=== PATIENT | male | born 1955 | race Caucasian/White ===

== ENCOUNTER 2017-07-27 16:24 | Inpatient (IN) | END 2017-08-11 18:45 | disposition home or self-care (01) | DRG 674 ==

== ENCOUNTER 2017-09-13 12:55 | Observation (INO) | END 2017-09-16 17:00 | disposition home or self-care (01) ==

== ENCOUNTER 2017-09-28 22:45 | Inpatient (IN) | END 2017-10-07 20:35 | DRG 264 ==

== ENCOUNTER 2018-08-10 17:59 | Inpatient (IN) | payer OTHER, MEDICAID ==
[~2018-08-10] VITALS: Ht 172.7 cm; Wt 76.9 kg
[~2018-08-10 17:59] MED LIST: CARV25TA79 PO; CLON-379 PO; CLOP75TA27 PO; MINO2.5T16 PO; NEPH PO; NIFE90TA11 PO; NITR0.4T39 SL; PANT40TA4 PO; SEVE800T7 PO; VALS160T20 PO
[2018-08-10] MEDS ORDERED: VANCOMYCIN 1 GM (PMX) 250 ML IVPB ONE (21:30)
[2018-08-10] MEDS ORDERED: PIPER-TAZO 3.375 GM IV (PMX) 100 ML IVPB ONE (21:30)
--- NOTE | 2018-08-10 21:51 | ERD ---
ER Documentation Chief Complaint Chief Complaint L toe eschar- painful; missed HD because of pain; L leg pain HPI 63-year-old man with a history of end-stage kidney disease missed dialysis today presents with increasing pain, swelling, discharge to the left pinky toe. He does have a history of bilateral foot pressure ulcers and prior foot osteomyelitis. He had a fever today but denies URI symptoms, no cough, no chest pain or shortness of breath, no vomiting or diarrhea, no complaints of abdominal pain. Patient denies recent antibiotic use or recent travel. ROS All systems reviewed and are negative except as per history of present illness. Medications Home Meds Active Scripts Pantoprazole* (Pantoprazole*) 40 Mg Tablet.dr, 40 MG PO DAILY@06 for 30 Days, #30 TAB Prov:TOÑO RODRIGUEZ MD 09/15/17 Reported Medications Clopidogrel Bisulfate (Clopidogrel) 75 Mg Tablet, 75 MG PO DAILY, #30 TAB 09/13/17 Multivit/Ca Carb/B Cmplx/Fa* (Yeny-Odalis*) 1 Tab Tab, 1 TAB PO DAILY, TAB 09/13/17 Valsartan* (Diovan*) 160 Mg Tablet, 160 MG PO DAILY, TAB 09/13/17 Nifedipine* (Nifedipine ER*) 90 Mg Tablet.er, 90 MG PO DAILY, TAB 09/13/17 Carvedilol* (Carvedilol*) 25 Mg Tablet, 25 MG PO BID, #60 TAB 09/13/17 Minoxidil* (Lonitin*) 2.5 Mg Tab, 2.5 MG PO BID, TAB 09/13/17 Nitroglycerin* (Nitrostat*) 0.4 Mg Tab.subl, 0.4 MG SL Q5MIN PRN for CHEST PAIN, BOTTLE 09/13/17 Clonidine Hcl* (Clonidine Hcl*) 0.1 Mg Tab, 0.1 MG PO BID PRN for ELEVATED BLOOD PRESSURE, TAB 09/13/17 Sevelamer Carbonate* (Renvela*) 800 Mg Tablet, 0.8 GM PO WITH MEALS, TAB 07/27/17 Allergies Allergies: Coded Allergies: No Known Allergy (Unverified , 09/28/17) PMhx/Soc History of bilateral foot osteomyelitis and infected ulcers, hypertension, end- stage kidney disease hemodialysis dependent, anemia, diabetes mellitus History of Surgery: Yes (LEFT KNEE 2009, PERMACATH PLACEMENT JUNE 2017) Anesthesia Reaction: No Hx Neurological Disorder: No Hx Respiratory Disorders: No Hx Cardiac Disorders: Yes (PREVIOUS CHEST PAIN 08/2017) Hx Psychiatric Problems: No Hx Miscellaneous Medical Probl: Yes (See PT NOTE) Hx Alcohol Use: No Hx Substance Use: No Hx Tobacco Use: No Smoking Status: Never smoker FmHx Family History: diabetes Physical Exam Vitals Vital Signs Date Temp Pulse Resp B/P (MAP) Pulse Ox O2 O2 Flow FiO2 Time Delivery Rate 08/10/18 Nasal 21:17 Cannula 08/10/18 100.1 104 18 154/78 99 Room Air 20:49 (103) 08/10/18 99.7 99 20 123/67 99 Room Air 20:40 (85) 08/10/18 101.6 102 20 102/59 96 18:19 (73) Physical Exam Const: No acute distress, febrile Head: Atraumatic Eyes: Normal Conjunctiva ENT: Normal External Ears, Nose and Mouth. Neck: Full range of motion. No meningismus. Resp: Clear to auscultation bilaterally Cardio: Regular rate and rhythm, no murmurs Abd: Soft, non tender, non distended. Skin: Wet gangrene to the left pinky toe with necrotic tissue and eschar prese nt plus purulent discharge at the fourth and fifth interdigital web space of the left foot Back: No midline or flank tenderness Ext: No cyanosis, or edema, calves bilaterally symmetrical Neur: Awake and alert x3, no focal deficits or facial asymmetry, pupils equal round reactive to light Psych: Normal Mood and Affect Result Diagram: 08/10/18210008/10/182100 Results 24 hrs Laboratory Tests Test 08/10/18 21:01 08/10/18 21:13 White Blood Count 27.5 10^3/ul Red Blood Count 3.39 10^6/ul Hemoglobin 10.7 g/dl Hematocrit 33.9 % Mean Corpuscular Volume 100.0 fl Mean Corpuscular Hemoglobin 31.6 pg Mean Corpuscular Hemoglobin Concent 31.6 g/dl Red Cell Distribution Width 15.9 % Platelet Count 352 10^3/UL Mean Platelet Volume 9.4 fl Immature Granulocytes % 1.700 % Neutrophils % % Lymphocytes % % Monocytes % % Eosinophils % % Basophils % % Nucleated Red Blood Cells % 0.0 /100WBC Immature Granulocytes # 0.480 10^3/ul Neutrophils # 10^3/ul Lymphocytes # 10^3/ul Monocytes # 10^3/ul Eosinophils # 10^3/ul Basophils # 10^3/ul Nucleated Red Blood Cells # 10^3/ul Prothrombin Time 16.5 Sec Prothrombin Time Ratio 1.3 INR International Normalized Ratio 1.32 Activated Partial Thromboplast Time 43.9 Sec Sodium Level 128 mmol/L Potassium Level 4.9 mmol/L Chloride Level 86 mmol/L Carbon Dioxide Level 26 mmol/L Anion Gap 16 Blood Urea Nitrogen 72 mg/dl Creatinine 11.39 mg/dl Est Glomerular Filtrat Rate mL/min 5 mL/min Glucose Level 190 mg/dl Calcium Level 9.1 mg/dl Total Bilirubin 0.0 mg/dl Direct Bilirubin 0.00 mg/dl Indirect Bilirubin 0.0 mg/dl Aspartate Amino Transf (AST/SGOT) 58 IU/L Alanine Aminotransferase (ALT/SGPT) 48 IU/L Alkaline Phosphatase 452 IU/L Troponin I 0.045 ng/ml Total Protein 7.9 g/dl Albumin 3.7 g/dl Globulin 4.20 g/dl Albumin/Globulin Ratio 0.88 Lipase 24 U/L POC Venous Lactate 1.3 mmol/L Current Medications Medications Dose Sig/Evita Start Time Status Last (Trade) Ordered Route PRN Stop Time Admin Dose Reason Admin Piperacillin 100 ml @ ONCE ONCE 08/10/18 DC 08/10/18 Sod/ 200 mls/hr IVPB 21:30 21:33 Tazobactam 08/10/18 21:59 Sod Vancomycin 250 ml @ ONCE ONCE 08/10/18 08/10/18 HCl 125 mls/hr IVPB 21:30 21:35 08/10/18 23:29 Procedures/MDM IV line was established patient was placed on rn cardiac rehab rhythm strip revealed a sinus rhythm at about 90 bpm with upright P and T waves. Patient was afebrile EKG performed, read by me revealed a normal sinus rhythm at 97 bpm, left axis deviation, right bundle branch block, prolonged QT of 510 ms, no concerning ST elevations or depressions noted Three-view x-ray of the left foot performed, read by me there is osteoarthritic changes with ulnar deviation of the 2 - 5 proximal phalanx at the MTP joints with multivessel calcification and osteomyelitis at the distal tip of the fifth distal phalanx of the left foot 1 view chest x-ray performed, read by me reveals a normal chest, hemodialysis catheter in the left chest, no acute infiltrates, no pneumothorax I administered Zosyn 3.375 g IV and vancomycin 1 g IV CBC reveals a leukocytosis at 28, electrolytes revealed kidney failure, lactic acid level low at 1.3. I do not suspect sepsis despite leukocytosis Patient will be admitted to telemetry setting for continued IV antibiotics and possible surgical intervention Departure Diagnosis: Primary Impression: Osteomyelitis of fifth toe of left foot Additional Impression: End stage kidney disease Condition: REGINALD Metz MD Aug 10, 2018 21:48
[2018-08-11] VITALS (15 sets, daily range): BP systolic 80–115; BP diastolic 50–69; PULSE 63–102; RESP 16–18; Ht 172.7 cm; Wt 76.9 kg
[2018-08-11] MEDS ORDERED: ASCO500C7 PO (00:10)
[2018-08-11] MEDS ORDERED: PANT40TA4 PO (00:10)
[2018-08-11] MEDS ORDERED: MIDO5TAB PO (00:12)
[2018-08-11] MEDS ORDERED: HYDR-3980 PO (00:12)
[2018-08-11] MEDS: SOD CHLORIDE 0.9% 1,000 ML IV SCH ×3 (01:49→23:10)
[2018-08-11] MEDS ORDERED: PIPER-TAZO 3.375 GM IV (PMX) 100 ML IVPB SCH (02:00)
[2018-08-11] MEDS ORDERED: NACL 0.9% 3 ML SYG IV SCH (02:00)
[2018-08-11] MEDS ORDERED: ALBUTEROL/IPRATROPIUM (NEB) 3 ML AMP HHN PRN (02:00)
[2018-08-11] MEDS ORDERED: VANCOMYCIN IV PER PHARMACY XX SCH (02:00)
[2018-08-11] MEDS ORDERED: ONDANSETRON 4 MG INJ IV PRN (02:00)
[2018-08-11] MEDS ORDERED: ACETAMINOPHEN 325 MG TAB PO PRN (02:00)
[2018-08-11] MEDS: HYDROCODONE/APAP (5/325) TAB PO PRN ×3 (02:29→23:16)
[2018-08-11] MEDS: PIPER-TAZO 2.25 GM (PMX) 50 ML IVPB SCH ×3 (06:18→23:15)
[2018-08-11] MEDS: PANTOPRAZOLE (EC) 40 MG TAB PO SCH (07:29)
[2018-08-11] MEDS: SEVELAMER CARBONATE 0.8 GM PKT PO SCH ×3 (07:52→17:35)
--- NOTE | 2018-08-11 08:27 | HP ---
Date/Time of Note Date/Time of Note DATE: 08/11/18 TIME: 08:19 Assessment/Plan VTE Prophylaxis Pharmacological prophylaxis: heparin Lines/Catheters IV Catheter Type (from Nrs): Saline Lock Assessment/Plan Assessment/Plan 1. Left fifth toe gangrene/osteomyelitis -MRI -IV antibiotic -Podiatry consult -Patient also with a history of bilateral heel wound with osteomyelitis, status post I&D last year 2. Sepsis: As evidenced by fever and leukocytosis: Secondary to #1 -IV antibiotic, IV fluid -Follow-up culture results -Management of left fifth toe osteomyelitis as outlined above 3. ESRD - Continue on HD - Nephrology consultation appreciated. 4. Hyponatremia: Likely secondary to dehydration -NS IVF for now 5. Hypertension: Continue home meds. Adjust as needed 6. Diabetes: Insulin while in-house Result Diagram: 08/11/18 0441 08/11/18 0440 Results 24hrs Laboratory Tests Test 08/10/18 21:01 08/10/18 21:13 08/11/18 02:30 08/11/18 04:40 White Blood Count 27.5 #H Red Blood Count 3.39 L Hemoglobin 10.7 #L Hematocrit 33.9 #L Mean Corpuscular 100.0 Volume Mean Corpuscular 31.6 Hemoglobin Mean Corpuscular 31.6 L Hemoglobin Concent Red Cell 15.9 H Distribution Width Platelet Count 352 Mean Platelet Volume 9.4 Immature 1.700 H Granulocytes % Neutrophils % Segmented 78 H Neutrophils % (Manual) Band Neutrophils % 7 H (Manual) Lymphocytes % Lymphocytes % 6 L (Manual) Monocytes % Monocytes % (Manual) 7 Eosinophils % Eosinophils % 2 (Manual) Basophils % Nucleated Red Blood 0.0 Cells % Immature 0.480 H Granulocytes # Neutrophils # Neutrophils # 22.0 H (Manual) Band Neutrophils # 1.9 H Lymphocytes (Manual) 1.6 Lymphocytes # Monocytes # Monocytes # (Manual) 1.9 H Eosinophils # Basophils # Nucleated Red Blood Cells # Platelet Estimate NORMAL Giant Platelets 1 H Polychromasia 3+ Poikilocytosis 1+ Anisocytosis 1+ Macrocytosis 1+ Prothrombin Time 16.5 H Prothrombin Time 1.3 Ratio INR International 1.32 Normalized Ratio Activated 43.9 H Partial Thromboplast Time Sodium Level 128 L 130 L Potassium Level 4.9 4.4 Chloride Level 86 L 90 L Carbon Dioxide Level 26 24 Anion Gap 16 H 16 H Blood Urea Nitrogen 72 H 76 H Creatinine 11.39 H 11.51 H Est Glomerular 5 L 5 L Filtrat Rate mL/min Glucose Level 190 145 # Calcium Level 9.1 8.6 Total Bilirubin 0.0 L 0.0 L Direct Bilirubin 0.00 0.00 Indirect Bilirubin 0.0 0.0 Aspartate Amino 58 H 48 H Transf (AST/SGOT) Alanine 48 45 Aminotransferase (AL T/SGPT) Alkaline Phosphatase 452 H 364 H Troponin I 0.045 Total Protein 7.9 6.6 # Albumin 3.7 3.1 L Globulin 4.20 H 3.50 H Albumin/Globulin 0.88 0.88 Ratio Lipase 24 POC Venous Lactate 1.3 Lactic Acid Level 1.1 Magnesium Level 2.3 Test 08/11/18 04:41 White Blood Count 25.8 H Red Blood Count 3.09 L Hemoglobin 10.0 L Hematocrit 30.5 L Mean Corpuscular 98.7 Volume Mean Corpuscular 32.4 Hemoglobin Mean Corpuscular 32.8 Hemoglobin Concent Red Cell 15.8 H Distribution Width Platelet Count 331 Mean Platelet Volume 9.3 Immature 1.000 H Granulocytes % Neutrophils % 84.1 H Lymphocytes % 4.6 L Monocytes % 9.1 Eosinophils % 0.7 Basophils % 0.5 Nucleated Red Blood 0.0 Cells % Immature 0.260 H Granulocytes # Neutrophils # 21.7 H Lymphocytes # 1.2 Monocytes # 2.3 H Eosinophils # 0.2 Basophils # 0.1 Nucleated Red Blood 0.0 Cells # HPI/ROS Admit Date/Time Admit Date/Time Hx of Present Illness This is a 63-year-old male with a history of hypertension, diabetes, ESRD on HD, PVD, bilateral heel osteomyelitis status post debridement. Patient presented to the ER complaining of left fifth toe gangrenous change. He said that 2 weeks ago he noticed small swelling on the left fifth toe. 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 Seth. Since the surgical removal, he said that toe has been progressively getting more darker to the point where now it is gangrenous. X-ray of the toe shows the followin. Lucency and indistinctness of the fifth distal phalanx compatible with osteomyelitis. 2. Cortical irregularity/indistinctness of the plantar base of the posterior calcaneus concerning for osteomyelitis. 3. Prominent vascular calcifications. 4. Diffuse soft tissue swelling in the forefoot and toes and plantar midfoot. 5. Recommend MRI for further evaluation. PMH/Family/Social Past Medical History Medical History: other (See HPI) Medications Current Medications Sodium Chloride 1,000 ml @ 100 mls/hr Q10H IV Last administered on 08/11/18at 01:49; Admin Dose 100 MLS/HR; Start 08/11/18 at 01:38 IV Flush (NS 3 ml) 3 ml PER PROTOCOL IV ; Start 08/11/18 at 02:00 Ondansetron HCl (Zofran Inj) 4 mg Q6H PRN IV NAUSEA/VOMITING; Start 08/11/18 at 02:00 Acetaminophen (Tylenol Tab) 650 mg Q6H PRN PO .PAIN 1-3 OR TEMP; Start 08/11/18 at 02:00 Acetaminophen/ Hydrocodone Bitart ([place] (5/325)) 1 tab Q6H PRN PO .PAIN 4-6; Start 08/11/18 at 02:00 Acetaminophen/ Hydrocodone Bitart ([place] (5/325)) 2 tab Q6H PRN PO .PAIN 7-10 Last administered on 08/11/18at 02:29; Admin Dose 2 TAB; Start 08/11/18 at 02:00 Heparin Sodium (Porcine) (Heparin (5000 Units/1ml)) 5,000 unit Q12 SC ; Start 08/11/18 at 09:00 Albuterol/ Ipratropium (Duoneb) 3 ml Q2H RESP THERAPY PRN HHN SHORTNESS OF BREATH; Start 08/11/18 at 02:00 Ascorbic Acid (Vitamin C) 500 mg DAILY PO ; Start 08/11/18 at 09:00 Clopidogrel Bisulfate (plaVIX) 75 mg DAILY PO ; Start 08/11/18 at 09:00 Midodrine (Proamatine) 5 mg DAILY PO ; Start 08/11/18 at 09:00 Multivit/Ca Carb/ B Cmplx/FA/Prenat (Yeny-Odalis) 1 tab DAILY PO ; Start 08/11/18 at 09:00 Nifedipine (Procardia Xl) 90 mg DAILY PO ; Start 08/11/18 at 09:00 Pantoprazole (Protonix Tab) 40 mg DAILY@06 PO Last administered on 08/11/18at 07:29; Admin Dose 40 MG; Start 08/11/18 at 06:00 Sevelamer Carbonate (Renvela) 0.8 gm WITH MEALS PO Last administered on 08/11/18at 07:52; Admin Dose 0.8 GM; Start 08/11/18 at 08:00 Vancomycin HCl (Vanco Iv Per Pharmacy) VANCOMYCIN PER PHARMACY PER PROTOCOL XX ; Start 08/11/18 at 02:00 Piperacillin Sod/ Tazobactam Sod 50 ml @ 100 mls/hr Q8 IVPB Last administered on 08/11/18at 06:18; Admin Dose 100 MLS/HR; Start 08/11/18 at 06:00 Vancomycin HCl 100 ml @ 100 mls/hr ONCE ONCE IVPB ; Start 08/11/18 at 09:00; Stop 08/11/18 at 09:59 Coded Allergies: No Known Allergy (Unverified , 08/11/18) Past Surgical History Past Surgical Hx: other (HPI) Family History Significant Family History: no pertinent family hx Social History Alcohol Use: none Smoking Status: Never smoker Drug Use: none Exam/Review of Systems Vital Signs Vitals Vital Signs Date Temp Pulse Resp B/P (MAP) Pulse Ox O2 O2 Flow FiO2 Time Delivery Rate 08/11/18 100.1 104 18 148/71 99 Room Air 06:19 (96) Intake and Output 08/10/18 08/10/18 08/11/18 1515:00 23:00 07:00 IntakeIntake Total 250 ml BalanceBalance 250 ml Exam Constitutional: alert, oriented, well developed Head: normocephalic, atraumatic Eyes: EOMI, PERRL Respiratory: clear to auscultation, normal air movement Cardiovascular: other (Tachycardic regular rhythm) Gastrointestinal: soft, non-tender Extremities: other (Left fifth toe is gangrenous. Bilateral heel covered) CIARA PINEDA MD Aug 11, 2018 08:27
[2018-08-11] MEDS ORDERED: VANCOMYCIN 500 MG (PMX) 100 ML IVPB ONE (09:00)
[2018-08-11] MEDS: ASCORBIC ACID 500 MG TAB PO SCH (09:03)
[2018-08-11] MEDS: MULTIVIT/CA CARB/B CMPLX/FA TAB PO SCH (09:03)
[2018-08-11] MEDS: MIDODRINE 5 MG TAB PO SCH (09:03)
[2018-08-11] MEDS: NIFEdipine (XL) 90 MG TAB PO SCH (09:03)
[2018-08-11] MEDS: HEPARIN 5,000 UNIT/1 ML VIAL SC SCH ×2 (09:43→21:17)
[2018-08-11] MEDS: CLOPIDOGREL 75 MG TAB PO SCH (09:43)
--- NOTE | 2018-08-11 13:08 | CONS ---
Assessment/Plan Assessment/Plan Assessment/Plan (Daily) Left foot diabetic ulcer Gangrene left foot Osteomyelitis DM2 with peripheral neuropathy ESRD on HD PAD Plan Patient to be admitted and recommend broad spectrum antibiotics and wound cultures to be obtained once on the floors. X-rays reviewed and appreciate signs of osteomyelitis. Patient wound benefit from left foot and ankle MRI studies. Non invasive arterial studies recommended along with vascular evaluation. Patient will likely need vascular optimization prior to surgical intervention. Discussed with patient that left 5th digit is at risk for amputation. Patient will need OR debridement and will continue to monitor while on the floors. Consultation Date/Type/Reason Admit Date/Time Date/Time of Note DATE: 08/11/18 TIME: 13:08 Hx of Present Illness 63 y/o M patient with hx of diabetes and ESRD on HD presents to the ER with left 5th digit gangrene and left heel ulceration. Patient reported that he had developed a blister to the left 5th digit and had it cleaned at an outside provider and then over time noticed the wound turning black. He's also been dealing with a chronic left heel ulceration. Patient was also seen previously by vascular surgery and reported gross non-compliance. Patient denies f/c/n/v no chest pain or shortness of breath. ROS Negative except for HPI Past Medical History hypertension, diabetes, ESRD on HD, PVD, heel osteomyelitis Home Meds Active Scripts Pantoprazole* (Pantoprazole*) 40 Mg Tablet., 40 MG PO DAILY@06 for 30 Days, #30 TAB Prov:TOÑO RODRIGUEZ MD 09/15/17 Reported Medications Midodrine* (Midodrine*) 5 Mg Tablet, 5 MG PO DAILY 08/11/18 Hydrocodone/Acetaminophen ([place] 10-325 Tablet) 1 Each Tablet, 1 EACH PO, TAB 08/11/18 Ascorbic Acid* (Vitamin C*) 500 Mg Capsule.sa, 500 MG PO DAILY, CAP 08/11/18 Clopidogrel Bisulfate (Clopidogrel) 75 Mg Tablet, 75 MG PO DAILY, #30 TAB 09/13/17 Multivit/Ca Carb/B Cmplx/Fa* (Yeny-Odalis*) 1 Tab Tab, 1 TAB PO DAILY, TAB 09/13/17 Nifedipine* (Nifedipine ER*) 90 Mg Tablet.er, 90 MG PO DAILY, TAB 09/13/17 Sevelamer Carbonate* (Renvela*) 800 Mg Tablet, 0.8 GM PO WITH MEALS, TAB 07/27/17 Discontinued Reported Medications Pantoprazole* (Pantoprazole*) 40 Mg Tablet.dr, 40 MG PO DAILY, TAB 08/11/18 Valsartan* (Diovan*) 160 Mg Tablet, 160 MG PO DAILY, TAB 09/13/17 Carvedilol* (Carvedilol*) 25 Mg Tablet, 25 MG PO BID, #60 TAB 09/13/17 Minoxidil* (Lonitin*) 2.5 Mg Tab, 2.5 MG PO BID, TAB 09/13/17 Nitroglycerin* (Nitrostat*) 0.4 Mg Tab.subl, 0.4 MG SL Q5MIN PRN for CHEST PAIN, BOTTLE 09/13/17 Clonidine Hcl* (Clonidine Hcl*) 0.1 Mg Tab, 0.1 MG PO BID PRN for ELEVATED BLOOD PRESSURE, TAB 09/13/17 Medications Current Medications Sodium Chloride 1,000 ml @ 100 mls/hr Q10H IV Last administered on 08/11/18at 01:49; Admin Dose 100 MLS/HR; Start 08/11/18 at 01:38 IV Flush (NS 3 ml) 3 ml PER PROTOCOL IV ; Start 08/11/18 at 02:00 Ondansetron HCl (Zofran Inj) 4 mg Q6H PRN IV NAUSEA/VOMITING; Start 08/11/18 at 02:00 Acetaminophen (Tylenol Tab) 650 mg Q6H PRN PO .PAIN 1-3 OR TEMP; Start 08/11/18 at 02:00 Acetaminophen/ Hydrocodone Bitart ([place] (5/325)) 1 tab Q6H PRN PO .PAIN 4-6 Last administered on 08/11/18at 09:54; Admin Dose 1 TAB; Start 08/11/18 at 02:00 Acetaminophen/ Hydrocodone Bitart ([place] (5/325)) 2 tab Q6H PRN PO .PAIN 7-10 Last administered on 08/11/18 02:29; Admin Dose 2 TAB; Start 08/11/18 at 02:00 Heparin Sodium (Porcine) (Heparin (5000 Units/1ml)) 5,000 unit Q12 SC Last administered on 08/11/18 09:43; Admin Dose 5,000 UNIT; Start 08/11/18 at 09:00 Albuterol/ Ipratropium (Duoneb) 3 ml Q2H RESP THERAPY PRN HHN SHORTNESS OF BREATH; Start 08/11/18 at 02:00 Ascorbic Acid (Vitamin C) 500 mg DAILY PO Last administered on 08/11/18 09:03; Admin Dose 500 MG; Start 08/11/18 at 09:00 Clopidogrel Bisulfate (plaVIX) 75 mg DAILY PO Last administered on 08/11/18 09:43; Admin Dose 75 MG; Start 08/11/18 at 09:00 Midodrine (Proamatine) 5 mg DAILY PO Last administered on 08/11/18 09:03; Admin Dose 5 MG; Start 08/11/18 at 09:00 Multivit/Ca Carb/ B Cmplx/FA/Prenat (Yeny-Odalis) 1 tab DAILY PO Last administered on 08/11/18 09:03; Admin Dose 1 TAB; Start 08/11/18 at 09:00 Nifedipine (Procardia Xl) 90 mg DAILY PO Last administered on 08/11/18 09:03; Admin Dose 90 MG; Start 08/11/18 at 09:00 Pantoprazole (Protonix Tab) 40 mg DAILY@06 PO Last administered on 08/11/18 07:29; Admin Dose 40 MG; Start 08/11/18 at 06:00 Sevelamer Carbonate (Renvela) 0.8 gm WITH MEALS PO Last administered on 08/11/18 07:52; Admin Dose 0.8 GM; Start 08/11/18 at 08:00 Vancomycin HCl (Vanco Iv Per Pharmacy) VANCOMYCIN PER PHARMACY PER PROTOCOL XX ; Start 08/11/18 at 02:00 Piperacillin Sod/ Tazobactam Sod 50 ml @ 100 mls/hr Q8 IVPB Last administered on 08/11/18 06:18; Admin Dose 100 MLS/HR; Start 08/11/18 at 06:00 Allergies: Coded Allergies: No Known Allergy (Unverified , 08/11/18) Past Surgical History permacatch placement for dialysis access Past Surgical Hx: other (HPI) Family History Significant Family History: no pertinent family hx Social History Alcohol Use: none Smoking Status: Never smoker Drug Use: none Exam/Review of Systems Exam Vitals Vital Signs Date Temp Pulse Resp B/P (MAP) Pulse Ox O2 O2 Flow FiO2 Time Delivery Rate 08/11/18 99.8 81 18 140/81 100 Room Air 10:54 (100) Intake and Output 08/10/18 08/10/18 08/11/18 1414:59 22:59 06:59 IntakeIntake Total 250 ml BalanceBalance 250 ml Exam Non palpable right foot pedal pulses Weakly palpable pedal pulse to the left foot Absent protective sensations No open lesions to the right foot. Left 5th digit gangrene with loose toe nail, the digit appears boggy with surrounding erythema Left plantar heel 3.5 x 3.5 x 0.3cm fibrogranular wound base with purulent discharge appreciated. Probes to bone, no proximal streaking appreciated Muscle strength 5/5 in all compartments of the foot. Foot X-ray 1. Lucency and indistinctness of the fifth distal phalanx compatible with osteomyelitis. 2. Cortical irregularity/indistinctness of the plantar base of the posterior calcaneus concerning for osteomyelitis. 3. Prominent vascular calcifications. 4. Diffuse soft tissue swelling in the forefoot and toes and plantar midfoot. 5. Recommend MRI for further evaluation. Results Result Diagram: 08/11/18 0441 08/11/18 0440 Results 24hrs Laboratory Tests Test 08/10/18 21:01 08/10/18 21:13 08/11/18 02:30 08/11/18 04:40 White Blood Count 27.5 #H Red Blood Count 3.39 L Hemoglobin 10.7 #L Hematocrit 33.9 #L Mean Corpuscular 100.0 Volume Mean Corpuscular 31.6 Hemoglobin Mean Corpuscular 31.6 L Hemoglobin Concent Red Cell 15.9 H Distribution Width Platelet Count 352 Mean Platelet Volume 9.4 Immature 1.700 H Granulocytes % Neutrophils % Segmented 78 H Neutrophils % (Manual) Band Neutrophils % 7 H (Manual) Lymphocytes % Lymphocytes % 6 L (Manual) Monocytes % Monocytes % (Manual) 7 Eosinophils % Eosinophils % 2 (Manual) Basophils % Nucleated Red Blood 0.0 Cells % Immature 0.480 H Granulocytes # Neutrophils # Neutrophils # 22.0 H (Manual) Band Neutrophils # 1.9 H Lymphocytes (Manual) 1.6 Lymphocytes # Monocytes # Monocytes # (Manual) 1.9 H Eosinophils # Basophils # Nucleated Red Blood Cells # Platelet Estimate NORMAL Giant Platelets 1 H Polychromasia 3+ Poikilocytosis 1+ Anisocytosis 1+ Macrocytosis 1+ Prothrombin Time 16.5 H Prothrombin Time 1.3 Ratio INR International 1.32 Normalized Ratio Activated 43.9 H Partial Thromboplast Time Sodium Level 128 L 130 L Potassium Level 4.9 4.4 Chloride Level 86 L 90 L Carbon Dioxide Level 26 24 Anion Gap 16 H 16 H Blood Urea Nitrogen 72 H 76 H Creatinine 11.39 H 11.51 H Est Glomerular 5 L 5 L Filtrat Rate mL/min Glucose Level 190 145 # Calcium Level 9.1 8.6 Total Bilirubin 0.0 L 0.0 L Direct Bilirubin 0.00 0.00 Indirect Bilirubin 0.0 0.0 Aspartate Amino 58 H 48 H Transf (AST/SGOT) Alanine 48 45 Aminotransferase (AL T/SGPT) Alkaline Phosphatase 452 H 364 H Troponin I 0.045 Total Protein 7.9 6.6 # Albumin 3.7 3.1 L Globulin 4.20 H 3.50 H Albumin/Globulin 0.88 0.88 Ratio Lipase 24 POC Venous Lactate 1.3 Lactic Acid Level 1.1 Magnesium Level 2.3 Test 08/11/18 04:41 White Blood Count 25.8 H Red Blood Count 3.09 L Hemoglobin 10.0 L Hematocrit 30.5 L Mean Corpuscular 98.7 Volume Mean Corpuscular 32.4 Hemoglobin Mean Corpuscular 32.8 Hemoglobin Concent Red Cell 15.8 H Distribution Width Platelet Count 331 Mean Platelet Volume 9.3 Immature 1.000 H Granulocytes % Neutrophils % 84.1 H Lymphocytes % 4.6 L Monocytes % 9.1 Eosinophils % 0.7 Basophils % 0.5 Nucleated Red Blood 0.0 Cells % Immature 0.260 H Granulocytes # Neutrophils # 21.7 H Lymphocytes # 1.2 Monocytes # 2.3 H Eosinophils # 0.2 Basophils # 0.1 Nucleated Red Blood 0.0 Cells # Medications Medication Current Medications Sodium Chloride 1,000 ml @ 100 mls/hr Q10H IV Last administered on 08/11/18at 01:49; Admin Dose 100 MLS/HR; Start 08/11/18 at 01:38 IV Flush (NS 3 ml) 3 ml PER PROTOCOL IV ; Start 08/11/18 at 02:00 Ondansetron HCl (Zofran Inj) 4 mg Q6H PRN IV NAUSEA/VOMITING; Start 08/11/18 at 02:00 Acetaminophen (Tylenol Tab) 650 mg Q6H PRN PO .PAIN 1-3 OR TEMP; Start 08/11/18 at 02:00 Acetaminophen/ Hydrocodone Bitart ([place] (5/325)) 1 tab Q6H PRN PO .PAIN 4-6 Last administered on 08/11/18 09:54; Admin Dose 1 TAB; Start 08/11/18 at 02:00 Acetaminophen/ Hydrocodone Bitart ([place] (5/325)) 2 tab Q6H PRN PO .PAIN 7-10 Last administered on 08/11/18 02:29; Admin Dose 2 TAB; Start 08/11/18 at 02:00 Heparin Sodium (Porcine) (Heparin (5000 Units/1ml)) 5,000 unit Q12 SC Last administered on 08/11/18 09:43; Admin Dose 5,000 UNIT; Start 08/11/18 at 09:00 Albuterol/ Ipratropium (Duoneb) 3 ml Q2H RESP THERAPY PRN HHN SHORTNESS OF BREATH; Start 08/11/18 at 02:00 Ascorbic Acid (Vitamin C) 500 mg DAILY PO Last administered on 08/11/18 09:03; Admin Dose 500 MG; Start 08/11/18 at 09:00 Clopidogrel Bisulfate (plaVIX) 75 mg DAILY PO Last administered on 08/11/18 09:43; Admin Dose 75 MG; Start 08/11/18 at 09:00 Midodrine (Proamatine) 5 mg DAILY PO Last administered on 08/11/18 09:03; Admin Dose 5 MG; Start 08/11/18 at 09:00 Multivit/Ca Carb/ B Cmplx/FA/Prenat (Yeny-Odalis) 1 tab DAILY PO Last administered on 08/11/18 09:03; Admin Dose 1 TAB; Start 08/11/18 at 09:00 Nifedipine (Procardia Xl) 90 mg DAILY PO Last administered on 08/11/18 09:03; Admin Dose 90 MG; Start 08/11/18 at 09:00 Pantoprazole (Protonix Tab) 40 mg DAILY@06 PO Last administered on 08/11/18 07:29; Admin Dose 40 MG; Start 08/11/18 at 06:00 Sevelamer Carbonate (Renvela) 0.8 gm WITH MEALS PO Last administered on 08/11/18at 07:52; Admin Dose 0.8 GM; Start 08/11/18 at 08:00 Vancomycin HCl (Vanco Iv Per Pharmacy) VANCOMYCIN PER PHARMACY PER PROTOCOL XX ; Start 08/11/18 at 02:00 Piperacillin Sod/ Tazobactam Sod 50 ml @ 100 mls/hr Q8 IVPB Last administered on 08/11/18at 06:18; Admin Dose 100 MLS/HR; Start 08/11/18 at 06:[address] DPM Aug 11, 2018 13:08
--- NOTE | 2018-08-11 14:36 | QN ---
Documentation Comment 63-year-old male with diabetes, ESRD on hemodialysis, here with worsening left 5th toe necrtic gangrene w/heel ulceration causing severe sepsis. Obtain left foot and ankle MRI, arterial studies. Continue broad-spectrum antimicrobial. Obtain podiatry, ID, vascular consult. Request nephrology consultation for hemodialysis. At follow-up consultants recommendations. Case discussed with Dr. Hammonds. ALTAF HUTCHISON NP Aug 11, 2018 14:36
--- NOTE | 2018-08-11 14:45 | CONS ---
DATE OF ADMISSION: 08/10/2018 DATE OF CONSULTATION: 08/11/2018 Thank you Layne, for asking me to participate in medical management of this patient. REASON FOR CONSULTATION: End-stage renal disease. HISTORY OF PRESENT ILLNESS: This 63-year-old man is being admitted through the Emergency Room today after he presented with painful left fifth toe. The patient has end-stage renal disease and peripher al artery disease. He usually dialyzes Wednesday, Wednesday, and Wednesday and missed his dialysis yesterd ay because of the left foot pain and infection. The patient does have severe peripheral artery disea se and has had bilateral foot pressure ulcers and prior osteomyelitis. The patient apparently had a fever yesterday, but no cough. He otherwise feels well and denies any chest pain, shortness of breat h, vomiting, diarrhea, abdominal pain. The patient usually dialyzes at the [facility]. His primary waistline joiner lockstitch is Dr. Lantigua. PAST MEDICAL HISTORY: 1. Remarkable for end-stage renal disease on maintenance hemodialysis since 07/2017. 2. Diabetic nephropathy. 3. History of anemia. 4. Hypertension. 5. Severe peripheral artery disease, having undergone revascularization of the left lower leg. 6. History of type 2 diabetes mellitus. CURRENT MEDICATIONS: Include the followin. Heparin 5000 units subcu q.12h. 2. Ascorbic acid 500 mg a day. 3. Plavix 75 mg a day. 4. Midodrine 5 mg p.o. daily. 5. Yeny-Odalis. 6. Nifedipine 90 mg p.o. daily. 7. Renvela 800 mg t.i.d. with meals. 8. Pantoprazole 40 mg a day. 9. Zosyn q.8h. 10. Zofran q.6h. p.r.n. 11. Tylenol p.r.n. pain. 12. [place] 5/325 q.6h. p.r.n. pain. 13. DuoNeb q.2h. p.r.n. 14. Vancomycin. PHYSICAL EXAMINATION: GENERAL: At this time reveals a well-developed man in no apparent distress. VITAL SIGNS: Temperature 100.1, pulse of 81, respirations 18, blood pressure 140/81, O2 saturation 1 00% on room air. HEENT: Head normocephalic. Eyes: Extraocular muscles intact. NOSE AND MOUTH: Normal. NECK: Supple. No neck vein distention. LUNGS: Clear to auscultation. CHEST: There is an internal jugular Perm-A-Cath in the left upper chest. HEART: Regular rhythm. No murmurs, gallops or rubs. ABDOMEN: Soft, nontender, no masses or megaly. EXTREMITIES: He does have some nonpitting edema of both lower legs. He has stasis changes of both l ower extremities around the feet and ankles. The left foot 5th digit; there is some evidence of an o pen wound and considered wet gangrene. He has decreased pedal pulses. NEUROLOGIC: Grossly intact. No obvious focal neurologic deficits. IMPRESSION: 1. End-stage renal disease on maintenance hemodialysis. He usually dialyzes Wednesday, Wednesday, ay and was due for dialysis yesterday. I will order hemodialysis for today. 2. Gangrene of the left foot 5th digit. 3. Severe peripheral artery disease. 4. Anemia of chronic kidney disease. 5. Type 2 diabetes mellitus. 6. Hypertension. PLAN: 1. Hemodialysis ordered for today. 2. Podiatry has been consulted to see the patient. 3. Broad spectrum antibiotics. 4. I will follow the patient along with you medically. Dictated By: MARY THRASHER MD, ND/TOPHER Conf#: [id number] DID#: [id number] CC: CIARA PINEDA MD;*End*
[2018-08-11] MEDS ORDERED: HEPARIN 1000 UNITS/ML 10 ML INJ CATHETER SCH (16:30)
--- NOTE | 2018-08-11 17:25 | CONS ---
Assessment/Plan Assessment/Plan Hospital Course (Demo Recall) assessment/impression - sepsis due to diabetic ulcer, infection and gangrene of L 5th toe, and bacteremia - diabetic ulcer, infection and gangrene of L 5th toe - OM of L 5th distal phalanx (based on XR) - bacteremia due to gram positive cocci - L shoulder pain - h/o gangrene of b/l heel - h/o infection of the gangrenous wound and OM of L heel s/p excisional debridement of necrotic skin, subcutaneous tissue, ligament and muscle of L foot, Bx of L calcaneus on 09/30/2017. The culture of the biopsied bone did not grow bacteria while the culture of the heel wound grew nutritionally deficient streptococci. Pathology exam showed acute and chronic osteomyelitis of the biopsied bone - PVD - s/p angioplasty of LLE in 2018 - DM - diabetic neuropathy of b/l feet and ankle - ESRD on HD via permacath on L chest recommendations - pending results: gram positive cocci in blood cultures - ordered: wound culture of L 5th toe, repeat blood cultures from HD catheter x2, XR of L shoulder - I recommend renally dosed IV vand and pip/tazo (08/11/2018-) - wound care - await eval by vascular and podiatry consultants - I discussed the management with Pt, his daughter Xochitl (by phone), MI Navarro and dialysis nurse Consultation Date/Type/Reason Admit Date/Time 08/11/2018 Date of Consultation: Aug 11, 2018 Type of Consult ID Reason for Consultation bacteremia, gangrene and OM of L 5th toe Requesting Provider: CIARA PINEDA MD Date/Time of Note DATE: 08/11/18 TIME: 16:34 Hx of Present Illness This is a 62 yo male with DM, diabetic neuropathy of b/l feet and toes, PVD and ESRD on HD. This is his second admission in the last one year. In 07/2018, Pt developed gangrene of b/l heel. Subsequently he had angioplasty of LLE. He was waiting for angioplasty of RLE. Then the gangrene of L heel became infected, and Pt was admitted on 09/29/2017. MRI of L foot did not show e/o osteomyelitis. XR of R foot did not show e/o osteomyelitis. On 09/30/2017 Pt underwent excisional debridement of necrotic skin, subcutaneous tissue, ligament and muscle of L foot, Bx of L calcaneus. the culture of the biopsied bone did not grow bacteria while the culture of the heel wound grew nutritionally deficient streptococci. Pathology exam showed acute and chronic osteomyelitis of the biopsied bone. He completed renally dosed IV amp/sulbactam x6 week on 11/09/2018. After that he was following up with Dr. Seth, his embossed or impressed lettering painter. Pt sustained a blister on his L 5th toe a few months ago. This was cleaned by Dr. Seth, his embossed or impressed lettering painter. Over time, the toe became necrotic. Pt rates pain of this affected toe 3 on the 1-10 scale. Also, Pt developed severe pain in L shoulder, rated at 7. The pain started spontaneously and limits his ROM. Pt presented at ER of [facility] on 08/10/2018 c/o severe pain in his L shoulder, and gangrene of L 5th toe. Upon arrival at ER. he had temp 102.6. He was tachycardic too. His WBC level was 27.5. XR of L foot showed diffuse soft tissue swelling, lucency and indistinctness of L 5th distal phalanx compatible with OM. XR also showed cortical irregularity/indistinctness of the plantar base of L posterior delma caneus concerning for osteomyelitis. Pt was started on pip/tazo and vancomycin, and was admitted. Today, two sets of blood cultures that were drawn at ER started to grow Gram positive cocci in clusters. Dr. Pineda requested ID consultation on this Pt. Constitutional: no complaints Eyes: no complaints ENT: no complaints Respiratory: no complaints Cardiovascular: no complaints Gastrointestinal: no complaints Genitourinary: no complaints Musculoskeletal: bone/joint pain (L shoulder, L 5th toe) Skin: skin lesions (necrosis of L 5th toe) Neurologic: other (diabetic neuropathy of b/l feet and toes, feels 50% only) Endocrine: no complaints Past Medical History Home Meds Active Scripts Pantoprazole* (Pantoprazole*) 40 Mg Tablet., 40 MG PO DAILY@06 for 30 Days, #30 TAB Prov:TOÑO RODRIGUEZ MD 09/15/17 Reported Medications Midodrine* (Midodrine*) 5 Mg Tablet, 5 MG PO DAILY 08/11/18 Hydrocodone/Acetaminophen (Fowler 10-325 Tablet) 1 Each Tablet, 1 EACH PO, TAB 08/11/18 Ascorbic Acid* (Vitamin C*) 500 Mg Capsule.sa, 500 MG PO DAILY, CAP 08/11/18 Clopidogrel Bisulfate (Clopidogrel) 75 Mg Tablet, 75 MG PO DAILY, #30 TAB 09/13/17 Multivit/Ca Carb/B Cmplx/Fa* (Yeny-Odalis*) 1 Tab Tab, 1 TAB PO DAILY, TAB 09/13/17 Nifedipine* (Nifedipine ER*) 90 Mg Tablet.er, 90 MG PO DAILY, TAB 09/13/17 Sevelamer Carbonate* (Renvela*) 800 Mg Tablet, 0.8 GM PO WITH MEALS, TAB 07/27/17 Discontinued Reported Medications Pantoprazole* (Pantoprazole*) 40 Mg Tablet.dr, 40 MG PO DAILY, TAB 08/11/18 Valsartan* (Diovan*) 160 Mg Tablet, 160 MG PO DAILY, TAB 09/13/17 Carvedilol* (Carvedilol*) 25 Mg Tablet, 25 MG PO BID, #60 TAB 09/13/17 Minoxidil* (Lonitin*) 2.5 Mg Tab, 2.5 MG PO BID, TAB 09/13/17 Nitroglycerin* (Nitrostat*) 0.4 Mg Tab.subl, 0.4 MG SL Q5MIN PRN for CHEST PAIN, BOTTLE 09/13/17 Clonidine Hcl* (Clonidine Hcl*) 0.1 Mg Tab, 0.1 MG PO BID PRN for ELEVATED BLOOD PRESSURE, TAB 09/13/17 Medications Current Medications Sodium Chloride 1,000 ml @ 100 mls/hr Q10H IV Last administered on 08/11/18at 01:49; Admin Dose 100 MLS/HR; Start 08/11/18 at 01:38 IV Flush (NS 3 ml) 3 ml PER PROTOCOL IV ; Start 08/11/18 at 02:00 Ondansetron HCl (Zofran Inj) 4 mg Q6H PRN IV NAUSEA/VOMITING; Start 08/11/18 at 02:00 Acetaminophen (Tylenol Tab) 650 mg Q6H PRN PO .PAIN 1-3 OR TEMP; Start 08/11/18 at 02:00 Acetaminophen/ Hydrocodone Bitart (Fowler (5/325)) 1 tab Q6H PRN PO .PAIN 4-6 Last administered on 08/11/18 09:54; Admin Dose 1 TAB; Start 08/11/18 at 02:00 Acetaminophen/ Hydrocodone Bitart (Fowler (5/325)) 2 tab Q6H PRN PO .PAIN 7-10 Last administered on 08/11/18 02:29; Admin Dose 2 TAB; Start 08/11/18 at 02:00 Heparin Sodium (Porcine) (Heparin (5000 Units/1ml)) 5,000 unit Q12 SC Last administered on 08/11/18 09:43; Admin Dose 5,000 UNIT; Start 08/11/18 at 09:00 Albuterol/ Ipratropium (Duoneb) 3 ml Q2H RESP THERAPY PRN HHN SHORTNESS OF BREATH; Start 08/11/18 at 02:00 Ascorbic Acid (Vitamin C) 500 mg DAILY PO Last administered on 08/11/18 09:03; Admin Dose 500 MG; Start 08/11/18 at 09:00 Clopidogrel Bisulfate (plaVIX) 75 mg DAILY PO Last administered on 08/11/18 09:43; Admin Dose 75 MG; Start 08/11/18 at 09:00 Midodrine (Proamatine) 5 mg DAILY PO Last administered on 08/11/18 09:03; Admin Dose 5 MG; Start 08/11/18 at 09:00 Multivit/Ca Carb/ B Cmplx/FA/Prenat (Yeny-Odalis) 1 tab DAILY PO Last administered on 08/11/18 09:03; Admin Dose 1 TAB; Start 08/11/18 at 09:00 Nifedipine (Procardia Xl) 90 mg DAILY PO Last administered on 08/11/18 09:03; Admin Dose 90 MG; Start 08/11/18 at 09:00 Pantoprazole (Protonix Tab) 40 mg DAILY@06 PO Last administered on 08/11/18 07:29; Admin Dose 40 MG; Start 08/11/18 at 06:00 Sevelamer Carbonate (Renvela) 0.8 gm WITH MEALS PO Last administered on 07:52; Admin Dose 0.8 GM; Start 08/11/18 at 08:00 Vancomycin HCl (Vanco Iv Per Pharmacy) VANCOMYCIN PER PHARMACY PER PROTOCOL XX ; Start 08/11/18 at 02:00 Piperacillin Sod/ Tazobactam Sod 50 ml @ 100 mls/hr Q8 IVPB Last administered on 08/11/18at 14:44; Admin Dose 100 MLS/HR; Start 08/11/18 at 06:00 Heparin Sodium (Porcine) (Heparin (1000 Units/ml)) 4,200 unit AFTER DIALYSIS CATHETER ; Start 08/11/18 at 16:30 Allergies: Coded Allergies: No Known Allergy (Unverified , 08/11/18) Past Surgical History Past Surgical Hx: other (HPI) Social History Alcohol Use: none Smoking Status: Never smoker Drug Use: none Exam/Review of Systems Exam Vitals Vital Signs Date Temp Pulse Resp B/P (MAP) Pulse Ox O2 O2 Flow FiO2 Time Delivery Rate 08/11/18 97.8 63 18 115/65 97 Room Air 13:47 (82) Intake and Output 08/10/18 08/10/18 08/11/18 1414:59 22:59 06:59 IntakeIntake Total 250 ml BalanceBalance 250 ml Constitutional: alert, oriented, well developed Psych: no complaints, nl mood/affect Head: normocephalic, atraumatic Eyes: nl conjunctiva, EOMI, nl lids, nl sclera ENMT: nl external ears & nose, nl lips & teeth, nl nasal mucosa & septum, mucosa pink and moist Neck: non-tender, other (ROM is limited) Respiratory: clear to auscultation, normal air movement Cardiovascular: regular rate and rhythm, nl pulses Gastrointestinal: soft, non-tender; No distended Musculoskeletal: other (L 5th toe is gangrenous, wound of L heel is smaller, non-purulent and non-TTP, L shoulder is not swollen, not hot and non-TTP) Extremities: pitting pedal edema (L dorsal foot) Neurological: other (diminished sensation of b/l feet and ankle); No lethargic Skin: other (numerous punched out lesions/ulcers of b/l feet, ankle and legs below the knee) Results Result Diagram: 08/11/18 04408/11/180 Results 24hrs Laboratory Tests Test 08/10/18 21:01 08/10/18 21:13 08/11/18 02:30 08/11/18 04:40 White Blood Count 27.5 #H Red Blood Count 3.39 L Hemoglobin 10.7 #L Hematocrit 33.9 #L Mean Corpuscular 100.0 Volume Mean Corpuscular 31.6 Hemoglobin Mean Corpuscular 31.6 L Hemoglobin Concent Red Cell 15.9 H Distribution Width Platelet Count 352 Mean Platelet Volume 9.4 Immature 1.700 H Granulocytes % Neutrophils % Segmented 78 H Neutrophils % (Manual) Band Neutrophils % 7 H (Manual) Lymphocytes % Lymphocytes % 6 L (Manual) Monocytes % Monocytes % (Manual) 7 Eosinophils % Eosinophils % 2 (Manual) Basophils % Nucleated Red Blood 0.0 Cells % Immature 0.480 H Granulocytes # Neutrophils # Neutrophils # 22.0 H (Manual) Band Neutrophils # 1.9 H Lymphocytes (Manual) 1.6 Lymphocytes # Monocytes # Monocytes # (Manual) 1.9 H Eosinophils # Basophils # Nucleated Red Blood Cells # Platelet Estimate NORMAL Giant Platelets 1 H Polychromasia 3+ Poikilocytosis 1+ Anisocytosis 1+ Macrocytosis 1+ Prothrombin Time 16.5 H Prothrombin Time 1.3 Ratio INR International 1.32 Normalized Ratio Activated 43.9 H Partial Thromboplast Time Sodium Level 128 L 130 L Potassium Level 4.9 4.4 Chloride Level 86 L 90 L Carbon Dioxide Level 26 24 Anion Gap 16 H 16 H Blood Urea Nitrogen 72 H 76 H Creatinine 11.39 H 11.51 H Est Glomerular 5 L 5 L Filtrat Rate mL/min Glucose Level 190 145 # Calcium Level 9.1 8.6 Total Bilirubin 0.0 L 0.0 L Direct Bilirubin 0.00 0.00 Indirect Bilirubin 0.0 0.0 Aspartate Amino 58 H 48 H Transf (AST/SGOT) Alanine 48 45 Aminotransferase (AL T/SGPT) Alkaline Phosphatase 452 H 364 H Troponin I 0.045 Total Protein 7.9 6.6 # Albumin 3.7 3.1 L Globulin 4.20 H 3.50 H Albumin/Globulin 0.88 0.88 Ratio Lipase 24 POC Venous Lactate 1.3 Lactic Acid Level 1.1 Magnesium Level 2.3 Test 08/11/18 04:41 White Blood Count 25.8 H Red Blood Count 3.09 L Hemoglobin 10.0 L Hematocrit 30.5 L Mean Corpuscular 98.7 Volume Mean Corpuscular 32.4 Hemoglobin Mean Corpuscular 32.8 Hemoglobin Concent Red Cell 15.8 H Distribution Width Platelet Count 331 Mean Platelet Volume 9.3 Immature 1.000 H Granulocytes % Neutrophils % 84.1 H Lymphocytes % 4.6 L Monocytes % 9.1 Eosinophils % 0.7 Basophils % 0.5 Nucleated Red Blood 0.0 Cells % Immature 0.260 H Granulocytes # Neutrophils # 21.7 H Lymphocytes # 1.2 Monocytes # 2.3 H Eosinophils # 0.2 Basophils # 0.1 Nucleated Red Blood 0.0 Cells # Medications Medication Current Medications Sodium Chloride 1,000 ml @ 100 mls/hr Q10H IV Last administered on 08/11/18 01:49; Admin Dose 100 MLS/HR; Start 08/11/18 at 01:38 IV Flush (NS 3 ml) 3 ml PER PROTOCOL IV ; Start 08/11/18 at 02:00 Ondansetron HCl (Zofran Inj) 4 mg Q6H PRN IV NAUSEA/VOMITING; Start 08/11/18 at 02:00 Acetaminophen (Tylenol Tab) 650 mg Q6H PRN PO .PAIN 1-3 OR TEMP; Start 08/11/18 at 02:00 Acetaminophen/ Hydrocodone Bitart (Fowler (5/325)) 1 tab Q6H PRN PO .PAIN 4-6 Last administered on 08/11/18 09:54; Admin Dose 1 TAB; Start 08/11/18 at 02:00 Acetaminophen/ Hydrocodone Bitart (Fowler (5/325)) 2 tab Q6H PRN PO .PAIN 7-10 Last administered on 08/11/18 02:29; Admin Dose 2 TAB; Start 08/11/18 at 02:00 Heparin Sodium (Porcine) (Heparin (5000 Units/1ml)) 5,000 unit Q12 SC Last administered on 08/11/18 09:43; Admin Dose 5,000 UNIT; Start 08/11/18 at 09:00 Albuterol/ Ipratropium (Duoneb) 3 ml Q2H RESP THERAPY PRN HHN SHORTNESS OF BREATH; Start 08/11/18 at 02:00 Ascorbic Acid (Vitamin C) 500 mg DAILY PO Last administered on 08/11/18 09:03; Admin Dose 500 MG; Start 08/11/18 at 09:00 Clopidogrel Bisulfate (plaVIX) 75 mg DAILY PO Last administered on 08/11/18 09:43; Admin Dose 75 MG; Start 08/11/18 at 09:00 Midodrine (Proamatine) 5 mg DAILY PO Last administered on 08/11/18 09:03; Admin Dose 5 MG; Start 08/11/18 at 09:00 Multivit/Ca Carb/ B Cmplx/FA/Prenat (Yeny-Odalis) 1 tab DAILY PO Last administered on 08/11/18 09:03; Admin Dose 1 TAB; Start 08/11/18 at 09:00 Nifedipine (Procardia Xl) 90 mg DAILY PO Last administered on 08/11/18 09:03; Admin Dose 90 MG; Start 08/11/18 at 09:00 Pantoprazole (Protonix Tab) 40 mg DAILY@06 PO Last administered on 08/11/18 07:29; Admin Dose 40 MG; Start 08/11/18 at 06:00 Sevelamer Carbonate (Renvela) 0.8 gm WITH MEALS PO Last administered on 08/11/18 07:52; Admin Dose 0.8 GM; Start 08/11/18 at 08:00 Vancomycin HCl (Vanco Iv Per Pharmacy) VANCOMYCIN PER PHARMACY PER PROTOCOL XX ; Start 08/11/18 at 02:00 Piperacillin Sod/ Tazobactam Sod 50 ml @ 100 mls/hr Q8 IVPB Last administered on 08/11/18at 14:44; Admin Dose 100 MLS/HR; Start 08/11/18 at 06:00 Heparin Sodium (Porcine) (Heparin (1000 Units/ml)) 4,200 unit AFTER DIALYSIS CATHETER ; Start 08/11/18 at 16:30 JUAN J LIU M.D. Aug 11, 2018 16:44
[2018-08-11] MEDS ORDERED: GLUCOSE GEL 15 GRAM TUBE BUCCAL PRN (17:30)
[2018-08-11] MEDS ORDERED: GLUCAGON 1 MG INJ IM PRN (17:30)
[2018-08-11] MEDS ORDERED: GLUCOSE GEL 15 GRAM TUBE PO PRN ×2 (17:30)
[2018-08-11] MEDS ORDERED: DEXTROSE 50% 50 ML SYRINGE IV PRN ×2 (17:30)
[2018-08-11] MEDS: INSULIN ASPART [NOVOLOG] 3 ML PEN SC SCH ×2 (18:05→20:38)
[2018-08-12 02:00] VITALS: BP 102/59; PULSE 81; RESP 18
[2018-08-12] MEDS: ACCU-CHEK XX SCH (02:00)
[2018-08-12] MEDS: PIPER-TAZO 2.25 GM (PMX) 50 ML IVPB SCH ×3 (06:02→21:31)
[2018-08-12] MEDS: PANTOPRAZOLE (EC) 40 MG TAB PO SCH (06:02)
[2018-08-12] MEDS ORDERED: FLUD0.1T10 PO (06:23)
[2018-08-12] MEDS ORDERED: DIPH25CA6 PO (06:25)
[2018-08-12 08:05] VITALS: BP 80/48; PULSE 74; RESP 16
[2018-08-12] MEDS: SEVELAMER CARBONATE 0.8 GM PKT PO SCH ×3 (08:14→17:35)
[2018-08-12] MEDS: INSULIN ASPART [NOVOLOG] 3 ML PEN SC SCH ×4 (08:17→20:55)
[2018-08-12] MEDS: SOD CHLORIDE 0.9% 1,000 ML IV SCH ×2 (08:17→17:38)
[2018-08-12] MEDS: MIDODRINE 5 MG TAB PO SCH ×3 (08:59→20:59)
[2018-08-12] MEDS: MULTIVIT/CA CARB/B CMPLX/FA TAB PO SCH (08:59)
[2018-08-12] MEDS: CLOPIDOGREL 75 MG TAB PO SCH (08:59)
[2018-08-12] MEDS: ASCORBIC ACID 500 MG TAB PO SCH (08:59)
[2018-08-12] MEDS: NIFEdipine (XL) 90 MG TAB PO SCH (09:00)
[2018-08-12] MEDS: HEPARIN 5,000 UNIT/1 ML VIAL SC SCH ×2 (09:00→20:56)
[2018-08-12 10:01] VITALS: BP 100/57; PULSE 72
--- NOTE | 2018-08-12 10:39 | PN ---
Date/Time of Note Date/Time of Note DATE: 08/12/18 TIME: 10:39 Assessment/Plan VTE Prophylaxis Risk score (from Nsg)>0 risk: 6 SCD applied (from Nsg): Yes Pharmacological prophylaxis: heparin Lines/Catheters IV Catheter Type (from Nrsg): Peripheral IV Urinary Cath still in place: No Assessment/Plan Hospital Course SUBJECTIVE: No acute overnight episodes OBJECTIVE: Vital signs-see below PHYSICAL EXAM: Constitutional: Adequately built,not in acute distress. HEENT: Head atraumatic and normocephalic. Eyes: Extraocular muscles intact. Anicteric sclerae. Pupils equal bilaterally, reactive to light. NECK: Supple without lymph node. CHEST: Clear and good breath sounds equally. No wheezing. No rhonchi. HEART: S1, S2. Regular rate and rhythm. ABDOMEN: Soft/non tender with no rebound tenderness. Bowel sounds were present. EXTREMITIES: Left 5th toe gangrene w/falling nail with surrounding heel/foot cellulitis. No focal defecit. NEUROLOGIC: Alert and oriented x3. No focal deficit. No sensory deficit. PSYCHOSOCIAL: No signs of depression. INTEGUMENTARY: No open wounds. ASSESSMENT AND PLAN:63-year-old male with diabetes, ESRD on hemodialysis, here with worsening left 5th toe necrtic gangrene w/heel ulceration causing severe sepsis. Gangrenous left foot DM ulcer with osteomyelitis -Appreciate podiatry review of case and plan is over debridement. Patient also seems at risk for left fifth toe amputation.. -Follow-up cultures. -Follow-up arterial studies ordered and vascular recommendations. -PICC line in anticipation for long-term IV antimicrobial. Severe sepsis with gram-positive bacteremia secondary to foot ulcer. -Treatment as above. Type 2 diabetes -Strict glycemic control. Appears to have adequate control on current insulin regimen which we will continue. End-stage renal disease -HD per nephro team. -Access: Left chest permacath Essential hypertension, now borderline hypotensive -Norvasc has been discontinued which I agree with. -Midodrine dose by nephrology to support blood pressure during dialysis sessions. Peripheral vascular disease -Continue antiplatelet Anemia of ESRD and chronic inflammation -H&H stable. Continue monitoring. Hyponatremia -Stable DVT prophylaxis: Heparin PUD prophylaxis: Protonix Disposition: Continue current management, IV antimicrobials. Follow-up cultures, arterial studies ordered. Plan is OR debridement pending vascular evaluation. Next Ptaient was seen in collaboration with Result Diagram: 08/12/18 0612 08/12/18 0612 Results 24hrs Laboratory Tests Test 08/11/18 18:08 08/11/18 20:37 08/12/18 06:12 08/12/18 08:14 Bedside Glucose 114 126 190 White Blood Count 23.8 H Red Blood Count 3.09 L Hemoglobin 9.9 L Hematocrit 30.9 L Mean Corpuscular 100.0 Volume Mean Corpuscular 32.0 Hemoglobin Mean Corpuscular 32.0 Hemoglobin Concent Red Cell 15.7 H Distribution Width Platelet Count 336 Mean Platelet Volume 9.3 Immature 1.200 H Granulocytes % Neutrophils % 88.4 H Lymphocytes % 3.6 L Monocytes % 6.2 Eosinophils % 0.3 Basophils % 0.3 Nucleated Red Blood 0.0 Cells % Immature 0.280 H Granulocytes # Neutrophils # 21.0 H Lymphocytes # 0.9 Monocytes # 1.5 H Eosinophils # 0.1 Basophils # 0.1 Nucleated Red Blood 0.0 Cells # Sodium Level 132 L Potassium Level 4.6 Chloride Level 93 L Carbon Dioxide Level 25 Anion Gap 14 H Blood Urea Nitrogen 48 #H Creatinine 7.21 #H Est Glomerular 8 L Filtrat Rate mL/min Glucose Level 184 Calcium Level 7.9 L Phosphorus Level 4.8 Magnesium Level 2.2 Exam/Review of Systems Exam Vitals Vital Signs Date Temp Pulse Resp B/P (MAP) Pulse Ox O2 O2 Flow FiO2 Time Delivery Rate 08/12/18 72 100/57 10:01 (71) 08/12/18 97.9 16 92 Room Air 08:05 Intake and Output 08/11/18 08/11/18 08/12/18 1515:00 23:00 07:00 IntakeIntake Total 740 ml 150 ml 260 ml OutputOutput Total 1850 ml BalanceBalance 740 ml -1700 ml 260 ml Results Results 24hrs Laboratory Tests Test 08/11/18 18:08 08/11/18 20:37 08/12/18 06:12 08/12/18 08:14 Bedside Glucose 114 126 190 White Blood Count 23.8 H Red Blood Count 3.09 L Hemoglobin 9.9 L Hematocrit 30.9 L Mean Corpuscular 100.0 Volume Mean Corpuscular 32.0 Hemoglobin Mean Corpuscular 32.0 Hemoglobin Concent Red Cell 15.7 H Distribution Width Platelet Count 336 Mean Platelet Volume 9.3 Immature 1.200 H Granulocytes % Neutrophils % 88.4 H Lymphocytes % 3.6 L Monocytes % 6.2 Eosinophils % 0.3 Basophils % 0.3 Nucleated Red Blood 0.0 Cells % Immature 0.280 H Granulocytes # Neutrophils # 21.0 H Lymphocytes # 0.9 Monocytes # 1.5 H Eosinophils # 0.1 Basophils # 0.1 Nucleated Red Blood 0.0 Cells # Sodium Level 132 L Potassium Level 4.6 Chloride Level 93 L Carbon Dioxide Level 25 Anion Gap 14 H Blood Urea Nitrogen 48 #H Creatinine 7.21 #H Est Glomerular 8 L Filtrat Rate mL/min Glucose Level 184 Calcium Level 7.9 L Phosphorus Level 4.8 Magnesium Level 2.2 Medications Medication Current Medications Sodium Chloride 1,000 ml @ 100 mls/hr Q10H IV Last administered on 08/12/18at 08:17; Admin Dose 100 MLS/HR; Start 08/11/18 at 01:38 IV Flush (NS 3 ml) 3 ml PER PROTOCOL IV ; Start 08/11/18 at 02:00 Ondansetron HCl (Zofran Inj) 4 mg Q6H PRN IV NAUSEA/VOMITING; Start 08/11/18 at 02:00 Acetaminophen (Tylenol Tab) 650 mg Q6H PRN PO .PAIN 1-3 OR TEMP; Start 08/11/18 at 02:00 Acetaminophen/ Hydrocodone Bitart (Nahma (5/325)) 1 tab Q6H PRN PO .PAIN 4-6 Last administered on 08/11/18at 23:16; Admin Dose 1 TAB; Start 08/11/18 at 02:00 Acetaminophen/ Hydrocodone Bitart (Nahma (5/325)) 2 tab Q6H PRN PO .PAIN 7-10 Last administered on 08/11/18at 02:29; Admin Dose 2 TAB; Start 08/11/18 at 02:00 Heparin Sodium (Porcine) (Heparin (5000 Units/1ml)) 5,000 unit Q12 SC Last administered on 08/12/18at 09:00; Admin Dose 5,000 UNIT; Start 08/11/18 at 09:00 Albuterol/ Ipratropium (Duoneb) 3 ml Q2H RESP THERAPY PRN HHN SHORTNESS OF BREATH; Start 08/11/18 at 02:00 Ascorbic Acid (Vitamin C) 500 mg DAILY PO Last administered on 08/12/18 08:59; Admin Dose 500 MG; Start 08/11/18 at 09:00 Clopidogrel Bisulfate (plaVIX) 75 mg DAILY PO Last administered on 08/12/18 08:59; Admin Dose 75 MG; Start 08/11/18 at 09:00 Midodrine (Proamatine) 5 mg DAILY PO Last administered on 08/12/18 08:59; Admin Dose 5 MG; Start 08/11/18 at 09:00 Multivit/Ca Carb/ B Cmplx/FA/Prenat (Yeny-Odalis) 1 tab DAILY PO Last administered on 08/12/18 08:59; Admin Dose 1 TAB; Start 08/11/18 at 09:00 Nifedipine (Procardia Xl) 90 mg DAILY PO Last administered on 08/11/18 09:03; Admin Dose 90 MG; Start 08/11/18 at 09:00 Pantoprazole (Protonix Tab) 40 mg DAILY@06 PO Last administered on 08/12/18 06:02; Admin Dose 40 MG; Start 08/11/18 at 06:00 Sevelamer Carbonate (Renvela) 0.8 gm WITH MEALS PO Last administered on 08/12/18 08:14; Admin Dose 0.8 GM; Start 08/11/18 at 08:00 Vancomycin HCl (Vanco Iv Per Pharmacy) VANCOMYCIN PER PHARMACY PER PROTOCOL XX ; Start 08/11/18 at 02:00 Piperacillin Sod/ Tazobactam Sod 50 ml @ 100 mls/hr Q8 IVPB Last administered on 08/12/18 06:02; Admin Dose 100 MLS/HR; Start 08/11/18 at 06:00 Heparin Sodium (Porcine) (Heparin (1000 Units/ml)) 4,200 unit AFTER DIALYSIS CATHETER ; Start 08/11/18 at 16:30 Diagnostic Test (Pha) (Accu-Chek) 1 ea 02 XX ; Start 08/12/18 at 02:00 Insulin Aspart (Novolog Insulin Pen) NOVOLOG *MILD* ALGORITHM WITH MEALS BEDTIME SC Last administered on 08/12/18 08:17; Admin Dose 2 UNIT; Start 08/11/18 at 18:05 Miscellaneous Information 1 ea NOTE XX ; Start 08/11/18 at 17:30 Glucose (Glutose) 15 gm Q15M PRN PO DECREASED GLUCOSE; Start 08/11/18 at 17:30 Glucose (Glutose) 22.5 gm Q15M PRN PO DECREASED GLUCOSE; Start 08/11/18 at 17:30 Dextrose (D50w Syringe) 25 ml Q15M PRN IV DECREASED GLUCOSE; Start 08/11/18 at 17:30 Dextrose (D50w Syringe) 50 ml Q15M PRN IV DECREASED GLUCOSE; Start 08/11/18 at 17:30 Glucagon (Glucagen) 1 mg Q15M PRN IM DECREASED GLUCOSE; Start 08/11/18 at 17:30 Glucose (Glutose) 15 gm Q15M PRN BUCCAL DECREASED GLUCOSE; Start 08/11/18 at 17:30 ALTAF HUTCHISON V. EN[employer]IR[employer]MENT[employer]EDIATION ENGINEER Aug 12, 2018 10:39
--- NOTE | 2018-08-12 10:52 | CONS ---
Assessment/Plan Assessment/Plan Hospital Course (Demo Recall) 1. End-stage renal disease on maintenance hemodialysis. He usually dialyzes Wednesday, Wednesday, Wednesday . He had dialysis yesterday and I will order dialysis for tomorrow. Then next week he can resume his regular Wednesday dialysis schedule. 2. Gangrene of the left foot 5th digit. 3. Severe peripheral artery disease. 4. Anemia of chronic kidney disease. I have ordered iron studies and will start Epogen. 5. Type 2 diabetes mellitus. 6. Hypertension, although the patient is on both nifedipine and midodrine. His blood pressure today was low this morning and he was given midodrine. I suspect this patient has postural hypotension due to autonomic neuropathy from his long- standing diabetes mellitus. I have discontinued the nifedipine. I will increase the midodrine to 3 times a day. He will have orthostatic vital signs taken to document postural hypotension. I would not treat him with antihypertensive medication. Consultation Date/Type/Reason Admit Date/Time Aug 10, 2018 at 23:19 Initial Consult Date 08/11/18 Requesting Provider: CIARA PINEDA MD Date/Time of Note DATE: 08/12/18 TIME: 10:45 24 HR Interval Summary Free Text/Dictation Dilshad is awake and alert today. He complains of left shoulder pain on motion and it is tender to touch. He denies left foot pain. He was dialyzed yesterday. Constitutional: improved Exam/Review of Systems Exam Vitals Vital Signs Date Temp Pulse Resp B/P (MAP) Pulse Ox O2 O2 Flow FiO2 Time Delivery Rate 08/12/18 72 100/57 10:01 (71) 08/12/18 97.9 16 92 Room Air 08:05 Intake and Output 08/11/18 08/11/18 08/12/18 1515:00 23:00 07:00 IntakeIntake Total 740 ml 150 ml 260 ml OutputOutput Total 1850 ml BalanceBalance 740 ml -1700 ml 260 ml Exam His left foot is bandaged. There is a gangrenous fifth toe on the left foot. He has stasis changes of both lower extremities Constitutional: alert, oriented, frail Respiratory: clear to auscultation, normal air movement Cardiovascular: regular rate and rhythm Gastrointestinal: soft, non-tender Musculoskeletal: joint tenderness Results Result Diagram: 08/12/18 0612 08/12/18 0612 Results 24hrs Laboratory Tests Test 08/11/18 18:08 08/11/18 20:37 08/12/18 06:12 08/12/18 08:14 Bedside Glucose 114 126 190 White Blood Count 23.8 H Red Blood Count 3.09 L Hemoglobin 9.9 L Hematocrit 30.9 L Mean Corpuscular 100.0 Volume Mean Corpuscular 32.0 Hemoglobin Mean Corpuscular 32.0 Hemoglobin Concent Red Cell 15.7 H Distribution Width Platelet Count 336 Mean Platelet Volume 9.3 Immature 1.200 H Granulocytes % Neutrophils % 88.4 H Lymphocytes % 3.6 L Monocytes % 6.2 Eosinophils % 0.3 Basophils % 0.3 Nucleated Red Blood 0.0 Cells % Immature 0.280 H Granulocytes # Neutrophils # 21.0 H Lymphocytes # 0.9 Monocytes # 1.5 H Eosinophils # 0.1 Basophils # 0.1 Nucleated Red Blood 0.0 Cells # Sodium Level 132 L Potassium Level 4.6 Chloride Level 93 L Carbon Dioxide Level 25 Anion Gap 14 H Blood Urea Nitrogen 48 #H Creatinine 7.21 #H Est Glomerular 8 L Filtrat Rate mL/min Glucose Level 184 Calcium Level 7.9 L Phosphorus Level 4.8 Magnesium Level 2.2 Medications Medication Current Medications Sodium Chloride 1,000 ml @ 100 mls/hr Q10H IV Last administered on 08/12/18at 08:17; Admin Dose 100 MLS/HR; Start 08/11/18 at 01:38 IV Flush (NS 3 ml) 3 ml PER PROTOCOL IV ; Start 08/11/18 at 02:00 Ondansetron HCl (Zofran Inj) 4 mg Q6H PRN IV NAUSEA/VOMITING; Start 08/11/18 at 02:00 Acetaminophen (Tylenol Tab) 650 mg Q6H PRN PO .PAIN 1-3 OR TEMP; Start 08/11/18 at 02:00 Acetaminophen/ Hydrocodone Bitart ([place] (5/325)) 1 tab Q6H PRN PO .PAIN 4-6 Last administered on 08/11/18at 23:16; Admin Dose 1 TAB; Start 08/11/18 at 02:00 Acetaminophen/ Hydrocodone Bitart ([place] (5/325)) 2 tab Q6H PRN PO .PAIN 7-10 Last administered on 08/11/18 02:29; Admin Dose 2 TAB; Start 08/11/18 at 02:00 Heparin Sodium (Porcine) (Heparin (5000 Units/1ml)) 5,000 unit Q12 SC Last administered on 08/12/18 09:00; Admin Dose 5,000 UNIT; Start 08/11/18 at 09:00 Albuterol/ Ipratropium (Duoneb) 3 ml Q2H RESP THERAPY PRN HHN SHORTNESS OF BREATH; Start 08/11/18 at 02:00 Ascorbic Acid (Vitamin C) 500 mg DAILY PO Last administered on 08/12/18 08:59; Admin Dose 500 MG; Start 08/11/18 at 09:00 Clopidogrel Bisulfate (plaVIX) 75 mg DAILY PO Last administered on 08/12/18 08:59; Admin Dose 75 MG; Start 08/11/18 at 09:00 Multivit/Ca Carb/ B Cmplx/FA/Prenat ([place]eny-Odalis) 1 tab DAILY PO Last administered on 08/12/18 08:59; Admin Dose 1 TAB; Start 08/11/18 at 09:00 Pantoprazole (Protonix Tab) 40 mg DAILY@06 PO Last administered on 08/12/18 06:02; Admin Dose 40 MG; Start 08/11/18 at 06:00 Sevelamer Carbonate (Renvela) 0.8 gm WITH MEALS PO Last administered on 08/12/18 08:14; Admin Dose 0.8 GM; Start 08/11/18 at 08:00 Vancomycin HCl (Vanco Iv Per Pharmacy) VANCOMYCIN PER PHARMACY PER PROTOCOL XX ; Start 08/11/18 at 02:00 Piperacillin Sod/ Tazobactam Sod 50 ml @ 100 mls/hr Q8 IVPB Last administered on 08/12/18 06:02; Admin Dose 100 MLS/HR; Start 08/11/18 at 06:00 Heparin Sodium (Porcine) (Heparin (1000 Units/ml)) 4,200 unit AFTER DIALYSIS CATHETER ; Start 08/11/18 at 16:30 Diagnostic Test (Pha) (Accu-Chek) 1 ea XX ; Start 08/12/18 at 02:00 Insulin Aspart (Novolog Insulin Pen) NOVOLOG *MILD* ALGORITHM WITH MEALS BEDTIME SC Last administered on 4/26/19at 08:17; Admin Dose 2 UNIT; Start 08/11/18 at 18:05 Miscellaneous Information 1 ea NOTE XX ; Start 08/11/18 at 17:30 Glucose (Glutose) 15 gm Q15M PRN PO DECREASED GLUCOSE; Start 08/11/18 at 17:30 Glucose (Glutose) 22.5 gm Q15M PRN PO DECREASED GLUCOSE; Start 08/11/18 at 17:30 Dextrose (D50w Syringe) 25 ml Q15M PRN IV DECREASED GLUCOSE; Start 08/11/18 at 17:30 Dextrose (D50w Syringe) 50 ml Q15M PRN IV DECREASED GLUCOSE; Start 08/11/18 at 17:30 Glucagon (Glucagen) 1 mg Q15M PRN IM DECREASED GLUCOSE; Start 08/11/18 at 17:30 Glucose (Glutose) 15 gm Q15M PRN BUCCAL DECREASED GLUCOSE; Start 08/11/18 at 17:30 Midodrine (Proamatine) 5 mg TID PO ; Start 08/12/18 at 13:00 MARY THRASHER MD Aug 12, 2018 10:52
[2018-08-12] MEDS ORDERED: LIDOCAINE 1% (MPF) 5 ML VIAL SC ONE (11:00)
[2018-08-12 14:30] VITALS: BP 107/58; PULSE 86; RESP 18
--- NOTE | 2018-08-12 15:02 | CONS ---
DATE OF ADMISSION: 08/10/2018 DATE OF CONSULTATION: 08/12/2018 TYPE OF CONSULTATION: Vascular REFERRING PHYSICIAN: Brendan Pineda MD and Layne Hutchison NP HISTORY OF PRESENT ILLNESS: This is a 63-year-old diabetic hypertensive gentleman with end-stage fermin al disease. He is well known to me from previous admissions. I have been seeing him for over a year . He is on dialysis for about a year. He has a left IJ Perm-A-Cath, which I placed a long time ago. He is scheduled for an AV fistula in the left are multiple times and he just never shows up. He vaughn s gangrene in both feet. He had an ulcer on the right heel, which is his first wound. I did an inte rvention, probably at least a year ago on the right lower extremity and that has gone on to heal. He developed another wound on the left plantar heel as well, and I intervened on that about a year ago and then it just was not improving, so I actually saw him in the office and did another angiogram of the left lower extremity about 6 or 8 weeks ago and treated some tibial artery disease. The plantar heel wound was actually improving actually continues to improve, but he has now developed gangrene of the fifth toe. It is wet gangrene. He is not exactly clear when it started, but it was at least a few weeks ago. He has been seeing Dr. Seth as an outpatient for podiatry care over in [place]. Beth bartlett has seen Dr. Badillo here in the past as well. He said he saw Dr. Seth few weeks ago and there really was not much of note, but that gangrene of the left fifth toe developed since then. PAST MEDICAL HISTORY: Significant for diabetes, hypertension, end-stage renal disease, peripheral ar terial disease. He has had a left IJ Perm-A-Cath that was placed in June 2017. He has had left kne e surgery in 2009. He has had some issues with coronary artery disease and chest pain. PAST SURGICAL HISTORY: Never had a CABG or PCI. MEDICATIONS: At present consist of: 1. Zofran. 2. Tylenol. 3. Subcutaneous heparin. 4. Albuterol. 5. Vitamin C. 6. Plavix. 7. Midodrine. 8. Multivitamin. 9. Nifedipine. 10. Protonix. 11. Renvela. 12. Vancomycin. 13. Zosyn. FAMILY HISTORY: Noncontributory. SOCIAL HISTORY: He is a former smoker. He does not drink or use any illicit drugs. He has a couple of daughters who take care of him. He has been fairly noncompliant with followup. I have tried to schedule him several times for the left arm AV fistula. He has had a catheter for over a year now an d he has repeatedly not shown up. REVIEW OF SYSTEMS: He complains of pain in the left shoulder. He had an x-ray done today does not s how much of note and now he actually says it feels better when he is moving it. It is not hurting no w. He denies any chest pain or shortness of breath, no nausea, vomiting or diarrhea. No fever, no c hills, no recent weight gain or weight loss. PHYSICAL EXAMINATION GENERAL: He is an elderly gentleman. He speaks Georgian fluently. VITAL SIGNS: He has been afebrile. His blood pressure is 100/57, heart rate 72, respiratory rate is 16. He is 92% sat on room air. NECK: He has 2+ carotid, radial and brachial pulses bilaterally. He has got a good left upper arm c ephalic vein and actually a good forearm cephalic vein as well. He has good radial and brachial puls es bilaterally. LUNGS: Clear. HEART: Regular rate and rhythm. ABDOMEN: Soft, nontender, nondistended. He has 2+ femoral and popliteal pulses bilaterally. DP and PT pulses, I can feel DP on the right. On the left, this may be 1+, is fairly faint but it is faint ly palpable. He has 2+ popliteal pulses bilaterally. Right foot, the plantar heel ulcers are finall y completely closed. His toes looked fine. There are no wounds on the toes. On the left, the plant ar heel ulcer has gotten much smaller. It is about the size of a dime, but he has wet gangrene of th e fifth toe, necrotic all the way down to the base. There is some drainage and a foul smell. He had an MRI that showed no definite evidence of osteomyelitis, but clinically it looks like the toe is ne crotic and not viable and it is infected too. LABORATORY DATA: White count when HE came in was 27.5; it has come down to 23 today. Platelet count s in the 300s, creatinine 7, potassium looks okay 4.6. He said his PermCath been working fine. IMPRESSION: Left 5th toe wet gangrene. I reviewed the angiogram I did about 6 or 8 weeks ago and it showed some anterior tibial disease. It was actually fairly mild. I treated it and he has got adeq uate perfusion to heal the foot. The toe needs to be amputated. I spoke to Dr. Streeter, and he is going to amputate it as soon as possible. He says he is on appropriate IV antibiotics, currently. We will keep an eye on him postoperatively if there are any issues with wound healing, may consider d oing another angiogram in the future, but for now, just needs the toe removed and all the necrotic ti ssue debrided. Dictated By: DAGOBERTO POLANCO/TOPHER Conf#: [id number] DID#: [id number] CC: IVANA BADILLO DPM; LAYNE HUTCHISON NP; RICO STREETER; BRENDAN PINEDA MD;*[facility]*
--- NOTE | 2018-08-12 18:13 | CONS ---
Assessment/Plan Assessment/Plan Hospital Course (Demo Recall) assessment/impression - sepsis due to diabetic ulcer, infection and gangrene of L 5th toe, and bacteremia - diabetic ulcer, infection and gangrene of L 5th toe due to S. aueus - OM of L 5th distal phalanx (based on XR), no OM in the visualized portions of the distal L 5th phalanx, possibly early OM of L 5th metatarsal and base of L 5th proximal phalanx, OM in the head of L 2nd metatarsal; probably residual OM of L heel, tendonitis (based on MRI) - Charcot's deformity - bacteremia due to gram positive cocci - L shoulder pain, XR on 08/11/2018 showed DJD - h/o gangrene of b/l heel - h/o infection of the gangrenous wound and OM of L heel s/p excisional debridement of necrotic skin, subcutaneous tissue, ligament and muscle of L foot, Bx of L calcaneus on 09/30/2017. The culture of the biopsied bone did not grow bacteria while the culture of the heel wound grew nutritionally deficient streptococci. Pathology exam showed acute and chronic osteomyelitis of the biopsied bone - PVD - s/p angioplasty of LLE in 2018 - DM - diabetic neuropathy of b/l feet and ankle - ESRD on HD via permacath on L chest recommendations - pending results: gram positive cocci in blood cultures (both peripheral blood draw on 08/10/2018), blood cultures from HD catheter (both drawn on 08/11/2018), wound culture of L 5th toe (S. aureus) - continue renally dosed IV vand and pip/tazo (08/11/2018-) - I recommend holding off placement of PICC. Pt may end up getting an antibiotic that could be given via HD catheter, sparing PICC (e.g. vancomycin). I also recommend holding PICC placement until her bacteremia clears - wound care consult - please order transthoracic echo to r/o endocarditis - I discussed the management with Pt, his daughter Xochitl (by phone), MI Jackson - the total time I took to care for this Pt today was from 1715 to 1800 Consultation Date/Type/Reason Admit Date/Time Aug 10, 2018 at 23:19 Initial Consult Date 08/11/18 Type of Consult ID Requesting Provider: CIARA PINEDA MD Date/Time of Note DATE: 08/12/18 TIME: 18:01 24 HR Interval Summary Constitutional: no complaints Detailed Summary Eyes: no complaints ENT: no complaints Respiratory: no complaints Cardiovascular: no complaints Gastrointestinal: no complaints Genitourinary: other (on HD) Musculoskeletal: bone/joint pain (L shoulder), other (no pain from L 4th toe) Skin: no complaints Neurologic: other (neuropathy of b/l feet and ankle) Exam/Review of Systems Exam Vitals Vital Signs Date Temp Pulse Resp B/P (MAP) Pulse Ox O2 O2 Flow FiO2 Time Delivery Rate 08/12/18 97.9 86 18 107/58 93 Room Air 14:30 (74) Intake and Output 08/11/18 08/11/18 08/12/18 1515:00 23:00 07:00 IntakeIntake Total 740 ml 150 ml 260 ml OutputOutput Total 1850 ml BalanceBalance 740 ml -1700 ml 260 ml Constitutional: alert, oriented Psych: no complaints, nl mood/affect Head: normocephalic Eyes: nl conjunctiva, nl lids ENMT: nl external ears & nose, nl nasal mucosa & septum Neck: other (not swollen) Respiratory: other (normalrespiratory effort) Gastrointestinal: soft, bowel sounds; No distended Musculoskeletal: range of motion (diminished at L shoulder), other (L 5th toe is gangrenous with minimal draiinage) Extremities: pitting pedal edema (L) Neurological: other (diminished sensation of b/l toes and feet) Skin: rash or lesions (dark discoloration of the skiin of b/l daley) Results Result Diagram: 08/12/18 0612 08/12/18 0612 Results 24hrs Laboratory Tests Test 08/11/18 18:08 08/11/18 20:37 08/12/18 06:10 08/12/18 06:12 Bedside Glucose 114 126 Iron Level 27 L Total Iron Binding 125 L Capacity Percent Iron 22 Saturation Ferritin 1280.0 H White Blood Count 23.8 H Red Blood Count 3.09 L Hemoglobin 9.9 L Hematocrit 30.9 L Mean Corpuscular 100.0 Volume Mean Corpuscular 32.0 Hemoglobin Mean Corpuscular 32.0 Hemoglobin Concent Red Cell 15.7 H Distribution Width Platelet Count 336 Mean Platelet Volume 9.3 Immature 1.200 H Granulocytes % Neutrophils % 88.4 H Lymphocytes % 3.6 L Monocytes % 6.2 Eosinophils % 0.3 Basophils % 0.3 Nucleated Red Blood 0.0 Cells % Immature 0.280 H Granulocytes # Neutrophils # 21.0 H Lymphocytes # 0.9 Monocytes # 1.5 H Eosinophils # 0.1 Basophils # 0.1 Nucleated Red Blood 0.0 Cells # Sodium Level 132 L Potassium Level 4.6 Chloride Level 93 L Carbon Dioxide Level 25 Anion Gap 14 H Blood Urea Nitrogen 48 #H Creatinine 7.21 #H Est Glomerular 8 L Filtrat Rate mL/min Glucose Level 184 Calcium Level 7.9 L Phosphorus Level 4.8 Magnesium Level 2.2 Test 08/12/18 08:14 08/12/18 12:06 08/12/18 17:34 Bedside Glucose 190 186 172 Medications Medication Current Medications Sodium Chloride 1,000 ml @ 100 mls/hr Q10H IV Last administered on 08/12/18at 08:17; Admin Dose 100 MLS/HR; Start 08/11/18 at 01:38 IV Flush (NS 3 ml) 3 ml PER PROTOCOL IV ; Start 08/11/18 at 02:00 Ondansetron HCl (Zofran Inj) 4 mg Q6H PRN IV NAUSEA/VOMITING; Start 08/11/18 at 02:00 Acetaminophen (Tylenol Tab) 650 mg Q6H PRN PO .PAIN 1-3 OR TEMP; Start 08/11/18 at 02:00 Acetaminophen/ Hydrocodone Bitart ([place] (5/325)) 1 tab Q6H PRN PO .PAIN 4-6 Last administered on 08/11/18at 23:16; Admin Dose 1 TAB; Start 08/11/18 at 02:00 Acetaminophen/ Hydrocodone Bitart ([place] (5/325)) 2 tab Q6H PRN PO .PAIN 7-10 Last administered on 08/11/18at 02:29; Admin Dose 2 TAB; Start 08/11/18 at 02:00 Heparin Sodium (Porcine) (Heparin (5000 Units/1ml)) 5,000 unit Q12 SC Last administered on 08/12/18at 09:00; Admin Dose 5,000 UNIT; Start 08/11/18 at 09:00 Albuterol/ Ipratropium (Duoneb) 3 ml Q2H RESP THERAPY PRN HHN SHORTNESS OF BREATH; Start 08/11/18 at 02:00 Ascorbic Acid (Vitamin C) 500 mg DAILY PO Last administered on 08/12/18at 08:59; Admin Dose 500 MG; Start 08/11/18 at 09:00 Clopidogrel Bisulfate (plaVIX) 75 mg DAILY PO Last administered on 08/12/18at 08:59; Admin Dose 75 MG; Start 08/11/18 at 09:00 Multivit/Ca Carb/ B Cmplx/FA/Prenat ([place]en[place]-Odalis) 1 tab DAILY PO Last administered on 08/12/18at 08:59; Admin Dose 1 TAB; Start 08/11/18 at 09:00 Pantoprazole (Protonix Tab) 40 mg DAILY@06 PO Last administered on 08/12/18at 06:02; Admin Dose 40 MG; Start 08/11/18 at 06:00 Sevelamer Carbonate (Renvela) 0.8 gm WITH MEALS PO Last administered on 08/12/18at 12:07; Admin Dose 0.8 GM; Start 08/11/18 at 08:00 Vancomycin HCl (Vanco Iv Per Pharmacy) VANCOMYCIN PER PHARMACY PER PROTOCOL XX ; Start 08/11/18 at 02:00 Piperacillin Sod/ Tazobactam Sod 50 ml @ 100 mls/hr Q8 IVPB Last administered on 08/12/18at 14:45; Admin Dose 100 MLS/HR; Start 08/11/18 at 06:00 Heparin Sodium (Porcine) (Heparin (1000 Units/ml)) 4,200 unit AFTER DIALYSIS CATHETER ; Start 08/11/18 at 16:30 Diagnostic Test (Pha) (Accu-Chek) 1 ea 02 XX ; Start 08/12/18 at 02:00 Insulin Aspart (Novolog Insulin Pen) NOVOLOG *MILD* ALGORITHM WITH MEALS BEDTIME SC Last administered on 08/12/18at 17:44; Admin Dose 1 UNIT; Start 08/11/18 at 18:05 Miscellaneous Information 1 ea NOTE XX ; Start 08/11/18 at 17:30 Glucose (Glutose) 15 gm Q15M PRN PO DECREASED GLUCOSE; Start 08/11/18 at 17:30 Glucose (Glutose) 22.5 gm Q15M PRN PO DECREASED GLUCOSE; Start 08/11/18 at 17:30 Dextrose (D50w Syringe) 25 ml Q15M PRN IV DECREASED GLUCOSE; Start 08/11/18 at 17:30 Dextrose (D50w Syringe) 50 ml Q15M PRN IV DECREASED GLUCOSE; Start 08/11/18 at 17:30 Glucagon (Glucagen) 1 mg Q15M PRN IM DECREASED GLUCOSE; Start 08/11/18 at 17:30 Glucose (Glutose) 15 gm Q15M PRN BUCCAL DECREASED GLUCOSE; Start 08/11/18 at 17:30 Midodrine (Proamatine) 5 mg TID PO Last administered on 08/12/18at 14:45; Admin Dose 5 MG; Start 08/12/18 at 13:00 Epoetin Yonas-epbx (RETACRIT(esrd)) 10,000 unit MoWeFr@1700 SC ; Start 08/12/18 at 17:00 Sodium Hypochlorite (Dakins Diluted (40)) 1 applic DAILY TP ; Start 08/13/18 at 09:00 JUAN J LIU M.D. Aug 12, 2018 18:13
--- NOTE | 2018-08-12 19:55 | QN ---
Documentation Comment Discussed case with Dr. Man and scheduled for OR procedure tomorrow 12:30 PM. Please prepare consent and NPO after midnight tonight. RICO STREETER DPM Aug 12, 2018 19:54
[2018-08-12 20:02] VITALS: BP 106/56; PULSE 85; RESP 18
[2018-08-12] MEDS: HYDROCODONE/APAP (5/325) TAB PO PRN (20:59)
[2018-08-13] VITALS (21 sets, daily range): BP systolic 109–142; BP diastolic 60–79; PULSE 83–135; RESP 16–21
[2018-08-13] MEDS: EPOETIN ALFA-EPBX (ESRD) 10,000 UNIT/ML VIAL SC SCH (00:36)
[2018-08-13] MEDS: ACCU-CHEK XX SCH (02:18)
[2018-08-13] MEDS: SOD CHLORIDE 0.9% 1,000 ML IV SCH ×3 (05:29→22:55)
[2018-08-13] MEDS: PIPER-TAZO 2.25 GM (PMX) 50 ML IVPB SCH ×2 (05:29→14:00)
[2018-08-13] MEDS: PANTOPRAZOLE (EC) 40 MG TAB PO SCH (05:35)
[2018-08-13] MEDS: SEVELAMER CARBONATE 0.8 GM PKT PO SCH ×3 (07:35→17:34)
[2018-08-13] MEDS: INSULIN ASPART [NOVOLOG] 3 ML PEN SC SCH ×4 (08:00→20:28)
[2018-08-13] MEDS: MIDODRINE 5 MG TAB PO SCH ×3 (08:30→20:21)
[2018-08-13] MEDS: CLOPIDOGREL 75 MG TAB PO SCH (08:30)
[2018-08-13] MEDS: ASCORBIC ACID 500 MG TAB PO SCH (08:31)
[2018-08-13] MEDS: MULTIVIT/CA CARB/B CMPLX/FA TAB PO SCH (08:31)
[2018-08-13] MEDS: HEPARIN 5,000 UNIT/1 ML VIAL SC SCH ×2 (08:31→20:24)
[2018-08-13] MEDS: DAKINS 0.0125%(1/40) 473 ML SOLUTION TP SCH (09:00)
[2018-08-13] MEDS ORDERED: HYDROmorphONE 1 MG/ML SYG IV ONE (10:00)
--- NOTE | 2018-08-13 12:41 | PREAC ---
Date/Time of Note Date/Time of Note DATE: 08/13/18 TIME: 12:36 Anesthesia Eval and Record Evaluation Time Pre-Procedure Interview DATE: 08/13/18 TIME: 12:36 Age 63 Sex male NPO: 8 hrs Preoperative diagnosis Lt foot osteomyelitis, necrosis Planned procedure Lt foot 5 th toe amputation, excisional debridement Past Medical History Past Medical History: Includes Cardio: HTN Endo: Diabetes Renal: ESRD on dialysis, HD last: Surgery & Anesthesia Issues No known issue Meds Anticoagulation: No Beta Myranda within 24 hr: No Reason Beta Myranda not given: Pt. not on B-Myranda Active Scripts Pantoprazole* (Pantoprazole*) 40 Mg Tablet.dr, 40 MG PO DAILY@06 for 30 Days, #30 TAB Prov:TOÑO RODRIGUEZ MD 09/15/17 Reported Medications Diphenhydramine Hcl* (Diphenhydramine Hcl*) 25 Mg Capsule, 25 MG PO Q6 for itching, insomnia , CAP 08/12/18 Diphenhydramine Hcl* (Diphenhydramine Hcl*) 25 Mg Capsule, 25 MG PO Q6 PRN for ITCHING, CAP 08/12/18 Fludrocortisone* (Fludrocortisone*) 0.1 Mg Tablet, 0.1 MG PO DAILY, TAB 08/12/18 Midodrine* (Midodrine*) 5 Mg Tablet, 5 MG PO DAILY 08/11/18 Hydrocodone/Acetaminophen ([place] 10-325 Tablet) 1 Each Tablet, 1 EACH PO, TAB 08/11/18 Ascorbic Acid* (Vitamin C*) 500 Mg Capsule.sa, 500 MG PO DAILY, CAP 08/11/18 Clopidogrel Bisulfate (Clopidogrel) 75 Mg Tablet, 75 MG PO DAILY, #30 TAB 09/13/17 Multivit/Ca Carb/B Cmplx/Fa* ([place]en[place]-Odalis*) 1 Tab Tab, 1 TAB PO DAILY, TAB 09/13/17 Nifedipine* (Nifedipine ER*) 90 Mg Tablet.er, 90 MG PO DAILY, TAB 09/13/17 Sevelamer Carbonate* (Renvela*) 800 Mg Tablet, 0.8 GM PO WITH MEALS, TAB 07/27/17 Discontinued Reported Medications Pantoprazole* (Pantoprazole*) 40 Mg Tablet.dr, 40 MG PO DAILY, TAB 08/11/18 Valsartan* (Diovan*) 160 Mg Tablet, 160 MG PO DAILY, TAB 09/13/17 Carvedilol* (Carvedilol*) 25 Mg Tablet, 25 MG PO BID, #60 TAB 09/13/17 Minoxidil* (Lonitin*) 2.5 Mg Tab, 2.5 MG PO BID, TAB 09/13/17 Nitroglycerin* (Nitrostat*) 0.4 Mg Tab.subl, 0.4 MG SL Q5MIN PRN for CHEST PAIN, BOTTLE 09/13/17 Clonidine Hcl* (Clonidine Hcl*) 0.1 Mg Tab, 0.1 MG PO BID PRN for ELEVATED BLOOD PRESSURE, TAB 09/13/17 Current Medications Sodium Chloride 1,000 ml @ 100 mls/hr Q10H IV Last administered on 08/13/18at 05:29; Admin Dose 100 MLS/HR; Start 08/11/18 at 01:38 IV Flush (NS 3 ml) 3 ml PER PROTOCOL IV ; Start 08/11/18 at 02:00 Ondansetron HCl (Zofran Inj) 4 mg Q6H PRN IV NAUSEA/VOMITING; Start 08/11/18 at 02:00 Acetaminophen (Tylenol Tab) 650 mg Q6H PRN PO .PAIN 1-3 OR TEMP; Start 08/11/18 at 02:00 Acetaminophen/ Hydrocodone Bitart ([place] (5/325)) 1 tab Q6H PRN PO .PAIN 4-6 Last administered on 08/12/18at 20:59; Admin Dose 1 TAB; Start 08/11/18 at 02:00 Acetaminophen/ Hydrocodone Bitart ([place] (5/325)) 2 tab Q6H PRN PO .PAIN 7-10 Last administered on 08/11/18at 02:29; Admin Dose 2 TAB; Start 08/11/18 at 02:00 Heparin Sodium (Porcine) (Heparin (5000 Units/1ml)) 5,000 unit Q12 SC Last administered on 08/12/18at 09:00; Admin Dose 5,000 UNIT; Start 08/11/18 at 09:00 Albuterol/ Ipratropium (Duoneb) 3 ml Q2H RESP THERAPY PRN HHN SHORTNESS OF BREATH; Start 08/11/18 at 02:00 Ascorbic Acid (Vitamin C) 500 mg DAILY PO Last administered on 08/12/18at 08:59; Admin Dose 500 MG; Start 08/11/18 at 09:00 Clopidogrel Bisulfate (plaVIX) 75 mg DAILY PO Last administered on 08/12/18at 08:59; Admin Dose 75 MG; Start 08/11/18 at 09:00 Multivit/Ca Carb/ B Cmplx/FA/Prenat ([place]-Odalis) 1 tab DAILY PO Last administered on 08/12/18 08:59; Admin Dose 1 TAB; Start 08/11/18 at 09:00 Pantoprazole (Protonix Tab) 40 mg DAILY@06 PO Last administered on 08/12/18 06:02; Admin Dose 40 MG; Start 08/11/18 at 06:00 Sevelamer Carbonate (Renvela) 0.8 gm WITH MEALS PO Last administered on 08/12/18at 12:07; Admin Dose 0.8 GM; Start 08/11/18 at 08:00 Vancomycin HCl (Vanco Iv Per Pharmacy) VANCOMYCIN PER PHARMACY PER PROTOCOL XX ; Start 08/11/18 at 02:00 Piperacillin Sod/ Tazobactam Sod 50 ml @ 100 mls/hr Q8 IVPB Last administered on 08/13/18at 05:29; Admin Dose 100 MLS/HR; Start 08/11/18 at 06:00 Heparin Sodium (Porcine) (Heparin (1000 Units/ml)) 4,200 unit AFTER DIALYSIS CATHETER ; Start 08/11/18 at 16:30 Diagnostic Test (Pha) (Accu-Chek) 1 ea 02 XX Last administered on 08/13/18at 02:18; Admin Dose 1 EA; Start 08/12/18 at 02:00 Insulin Aspart (Novolog Insulin Pen) NOVOLOG *MILD* ALGORITHM WITH MEALS BEDTIME SC Last administered on 08/12/18at 20:55; Admin Dose 1 UNIT; Start 08/11/18 at 18:05 Miscellaneous Information 1 ea NOTE XX ; Start 08/11/18 at 17:30 Glucose (Glutose) 15 gm Q15M PRN PO DECREASED GLUCOSE; Start 08/11/18 at 17:30 Glucose (Glutose) 22.5 gm Q15M PRN PO DECREASED GLUCOSE; Start 08/11/18 at 17:30 Dextrose (D50w Syringe) 25 ml Q15M PRN IV DECREASED GLUCOSE; Start 08/11/18 at 17:30 Dextrose (D50w Syringe) 50 ml Q15M PRN IV DECREASED GLUCOSE; Start 08/11/18 at 17:30 Glucagon (Glucagen) 1 mg Q15M PRN IM DECREASED GLUCOSE; Start 08/11/18 at 17:30 Glucose (Glutose) 15 gm Q15M PRN BUCCAL DECREASED GLUCOSE; Start 08/11/18 at 17:30 Midodrine (Proamatine) 5 mg TID PO Last administered on 08/12/18at 20:59; Admin Dose 5 MG; Start 08/12/18 at 13:00 Epoetin Yonas-epbx (RETACRIT(esrd)) 10,000 unit MoWeFr@1700 SC Last administered on 08/13/18at 00:36; Admin Dose 10,000 UNIT; Start 08/12/18 at 17:00 Sodium Hypochlorite (Dakins Diluted ()) 1 applic DAILY TP ; Start 08/13/18 at 09:00 Meds reviewed: Yes Allergies Coded Allergies: No Known Allergy (Unverified , 08/11/18) Allergies Reviewed: Yes Labs/Studies Labs Reviewed: Reviewed by anesthesiologist Result Diagram: 08/13/1852608/13/18526 Laboratory Tests 08/13/18 05:27 test: N/A Studies: ECG Pre-procedure Exam Last vitals Vital Signs Date Temp Pulse Resp B/P (MAP) Pulse Ox O2 O2 Flow FiO2 Time Delivery Rate 08/13/18 98.9 89 18 121/69 94 07:53 (86) 08/12/18 Room Air 14:30 Airway: Adequate mouth opening, Adequate thyromental dist Mallampati: Mallampati II Teeth: Normal Lung: Normal Heart: Normal ASA Physical Status ASA physical status: 4 Emergency: None Planned Anesthetic General/MAC: LMA Planned Pain Management Parenteral pain med Pre-operative Attestations Prior to commencing anesthesia and surgery, the patient was re-evaluated, there was verification of: *The patient's identity *The results of appropriate recent lab work and preoperative vital signs *The above evaluation not changing prior to induction *Anesthetic plan, risk benefits, alternative and complications discussed with patient/family; questions answered; patient/family understands, accepts and wishes to proceed. KERRI GARCIA MD Aug 13, 2018 12:41
--- NOTE | 2018-08-13 12:43 | HPN ---
Date/Time of Note Date/Time of Note DATE: 08/13/18 TIME: 12:43 Interval H&P Admission Note Pt. seen H&P reviewed: No system changes RICO STREETER DPM Aug 13, 2018 12:43
[2018-08-13] MEDS ORDERED: MIDAZOLAM 1 MG/ML 2 ML INJ ONE (12:51)
[2018-08-13] MEDS ORDERED: VANCOMYCIN 1 GM INJ ONE (12:56)
[2018-08-13] MEDS ORDERED: TOBRAMYCIN 1.2 GM POWDER ONE (12:56)
[2018-08-13] MEDS ORDERED: POLYMYXIN/BACITRACIN 1L IRRIG ONE (12:58)
[2018-08-13] MEDS ORDERED: ETOMIDATE 20 MG INJ ONE (14:08)
[2018-08-13] MEDS ORDERED: CEFAZOLIN 1 GM INJ ONE (14:08)
[2018-08-13] MEDS ORDERED: LIDOCAINE 2% (SDV) 5 ML INJ ONE (14:08)
[2018-08-13] MEDS ORDERED: ONDANSETRON 4 MG INJ ONE (14:09)
--- NOTE | 2018-08-13 14:24 | CONS ---
Assessment/Plan Assessment/Plan Assessment/Plan (Daily) 1. End-stage renal disease. Mild hyponatremia noted For HD today after surgery 2. Gangrene of the left foot 5th digit. Amputation today 3. Severe peripheral artery disease. Vascular surgery following 4. Anemia of chronic kidney disease. Continue AVELINA 5. Type 2 diabetes mellitus. Controlled 6. Hypertension with orthostatic hypotension Continue Midodrine Consultation Date/Type/Reason Admit Date/Time Aug 10, 2018 at 23:19 Initial Consult Date 08/11/18 Type of Consult Nephrology Requesting Provider: CIARA PINEDA MD Date/Time of Note DATE: 08/13/18 TIME: 14:18 24 HR Interval Summary Free Text/Dictation The patient is currently in surgery. Chart was reviewed and condition discussed with nursing. Exam/Review of Systems Exam Vitals Vital Signs Date Temp Pulse Resp B/P (MAP) Pulse Ox O2 O2 Flow FiO2 Time Delivery Rate 08/13/18 98.9 89 18 121/69 94 07:53 (86) 08/12/18 Room Air 14:30 Intake and Output 08/12/18 08/12/18 08/13/18 1414:59 22:59 06:59 IntakeIntake Total 1350 ml 950 ml 1450 ml OutputOutput Total 600 ml BalanceBalance 1350 ml 950 ml 850 ml Results Result Diagram: 08/13/1852608/13/18526 Results 24hrs Laboratory Tests Test 08/12/18 17:34 08/12/18 20:05 08/12/18 20:50 08/13/18 02:20 Bedside Glucose 172 200 136 Erythrocyte 128 H Sedimentation Rate C-Reactive Protein 25.7 H Test 08/13/18 05:00 08/13/18 05:27 08/13/18 07:55 08/13/18 12:14 Erythrocyte 127 H Sedimentation Rate C-Reactive Protein 23.7 H White Blood Count 20.1 H Red Blood Count 3.04 L Hemoglobin 9.9 L Hematocrit 30.1 L Mean Corpuscular 99.0 Volume Mean Corpuscular 32.6 Hemoglobin Mean Corpuscular 32.9 Hemoglobin Concent Red Cell 15.8 H Distribution Width Platelet Count 340 Mean Platelet Volume 9.1 Immature 1.100 H Granulocytes % Neutrophils % 83.1 H Lymphocytes % 8.0 L Monocytes % 5.9 Eosinophils % 1.6 Basophils % 0.3 Nucleated Red Blood 0.0 Cells % Immature 0.220 H Granulocytes # Neutrophils # 16.7 H Lymphocytes # 1.6 Monocytes # 1.2 H Eosinophils # 0.3 Basophils # 0.1 Nucleated Red Blood 0.0 Cells # Sodium Level 131 L Potassium Level 4.7 Chloride Level 95 L Carbon Dioxide Level 23 Anion Gap 13 Blood Urea Nitrogen 65 H Creatinine 8.26 H Est Glomerular 7 L Filtrat Rate mL/min Glucose Level 116 # Calcium Level 7.8 L Triglycerides Level 254 H Cholesterol Level 93 L LDL Cholesterol, 28 Calculated HDL Cholesterol 14 L Cholesterol/HDL 6.6 Ratio Bedside Glucose 124 116 Medications Medication Current Medications Sodium Chloride 1,000 ml @ 100 mls/hr Q10H IV Last administered on 08/13/18 05:29; Admin Dose 100 MLS/HR; Start 08/11/18 at 01:38 IV Flush (NS 3 ml) 3 ml PER PROTOCOL IV ; Start 08/11/18 at 02:00 Ondansetron HCl (Zofran Inj) 4 mg Q6H PRN IV NAUSEA/VOMITING; Start 08/11/18 at 02:00 Acetaminophen (Tylenol Tab) 650 mg Q6H PRN PO .PAIN 1-3 OR TEMP; Start 08/11/18 at 02:00 Acetaminophen/ Hydrocodone Bitart ([place] (5/325)) 1 tab Q6H PRN PO .PAIN 4-6 Last administered on 08/12/18at 20:59; Admin Dose 1 TAB; Start 08/11/18 at 02:00 Acetaminophen/ Hydrocodone Bitart ([place] (5/325)) 2 tab Q6H PRN PO .PAIN 7-10 Last administered on 08/11/18at 02:29; Admin Dose 2 TAB; Start 08/11/18 at 02:00 Heparin Sodium (Porcine) (Heparin (5000 Units/1ml)) 5,000 unit Q12 SC Last administered on 08/12/18 09:00; Admin Dose 5,000 UNIT; Start 08/11/18 at 09:00 Albuterol/ Ipratropium (Duoneb) 3 ml Q2H RESP THERAPY PRN HHN SHORTNESS OF BREATH; Start 08/11/18 at 02:00 Ascorbic Acid (Vitamin C) 500 mg DAILY PO Last administered on 08/12/18at 08:59; Admin Dose 500 MG; Start 08/11/18 at 09:00 Clopidogrel Bisulfate (plaVIX) 75 mg DAILY PO Last administered on 08/12/18at 08:59; Admin Dose 75 MG; Start 08/11/18 at 09:00 Multivit/Ca Carb/ B Cmplx/FA/Prenat ([place]-Odalis) 1 tab DAILY PO Last administered on 08/12/18at 08:59; Admin Dose 1 TAB; Start 08/11/18 at 09:00 Pantoprazole (Protonix Tab) 40 mg DAILY@06 PO Last administered on 08/12/18at 06:02; Admin Dose 40 MG; Start 08/11/18 at 06:00 Sevelamer Carbonate (Renvela) 0.8 gm WITH MEALS PO Last administered on 08/12/18at 12:07; Admin Dose 0.8 GM; Start 08/11/18 at 08:00 Vancomycin HCl (Vanco Iv Per Pharmacy) VANCOMYCIN PER PHARMACY PER PROTOCOL XX ; Start 08/11/18 at 02:00 Piperacillin Sod/ Tazobactam Sod 50 ml @ 100 mls/hr Q8 IVPB Last administered on 08/13/18at 05:29; Admin Dose 100 MLS/HR; Start 08/11/18 at 06:00 Heparin Sodium (Porcine) (Heparin (1000 Units/ml)) 4,200 unit AFTER DIALYSIS CATHETER ; Start 08/11/18 at 16:30 Diagnostic Test (Pha) (Accu-Chek) 1 ea 02 XX Last administered on 08/13/18at 02:18; Admin Dose 1 EA; Start 08/12/18 at 02:00 Insulin Aspart (Novolog Insulin Pen) NOVOLOG *MILD* ALGORITHM WITH MEALS BEDTIME SC Last administered on 08/12/18at 20:55; Admin Dose 1 UNIT; Start 08/11/18 at 18:05 Miscellaneous Information 1 ea NOTE XX ; Start 08/11/18 at 17:30 Glucose (Glutose) 15 gm Q15M PRN PO DECREASED GLUCOSE; Start 08/11/18 at 17:30 Glucose (Glutose) 22.5 gm Q15M PRN PO DECREASED GLUCOSE; Start 08/11/18 at 17:30 Dextrose (D50w Syringe) 25 ml Q15M PRN IV DECREASED GLUCOSE; Start 08/11/18 at 17:30 Dextrose (D50w Syringe) 50 ml Q15M PRN IV DECREASED GLUCOSE; Start 08/11/18 at 17:30 Glucagon (Glucagen) 1 mg Q15M PRN IM DECREASED GLUCOSE; Start 08/11/18 at 17:30 Glucose (Glutose) 15 gm Q15M PRN BUCCAL DECREASED GLUCOSE; Start 08/11/18 at 17:30 Midodrine (Proamatine) 5 mg TID PO Last administered on 08/12/18at 20:59; Admin Dose 5 MG; Start 08/12/18 at 13:00 Epoetin Yonas-epbx (RETACRIT(esrd)) 10,000 unit MoWeFr@1700 SC Last administered on 08/13/18at 00:36; Admin Dose 10,000 UNIT; Start 08/12/18 at 17:00 Sodium Hypochlorite (Dakins Diluted ()) 1 applic DAILY TP ; Start 08/13/18 at 09:00 FANNY RENEE MD Aug 13, 2018 14:23
--- NOTE | 2018-08-13 14:25 | PAC ---
Date/Time of Note Date/Time of Note DATE: 08/13/18 TIME: 14:24 Post-Anesthesia Notes Post-Anesthesia Note Last documented vital signs Vital Signs Date Temp Pulse Resp B/P (MAP) Pulse Ox O2 O2 Flow FiO2 Time Delivery Rate 08/13/18 98.9 89 18 121/69 94 07:53 (86) 08/12/18 Room Air 14:30 Activity: WNL Respiratory function: WNL Cardiovascular function: WNL Mental status: Baseline Pain reasonably controlled: Yes Hydration appropriate: Yes Nausea/Vomiting absent: Yes Comments BP:134/67, P:78, Spo2:100%, T:98,8 KERRI GARCIA MD Aug 13, 2018 14:25
--- NOTE | 2018-08-13 14:27 | SIPON ---
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
--- NOTE | 2018-08-13 14:29 | OPR ---
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 Patient had arrived to the hospital with elevated white blood count and septic. Patient received antibiotics and deemed necessary to surgically intervene to address the infection. All of the patient's questions and concerns were addressed. No promises or guarantees were given. Procedure Description Patient was brought to the OR and placed on the OR table in the supine position. The left lower extremity was scrubbed, prepped, and draped in the usual aseptic manner. A formal time out was conducted. Attention was directed to the left foot. The 5th digit site appeared gangrenous with purulence present surrounding the lesion site. The 5th digit was disarticulated from the metatarsophalangeal joint with sharp dissection. The digit was sent for pathology. There was purulent drainage appreciated within the surgical site and there was tunneling appreciated in the proximal plantar medial aspect. Upon further exploration of the tunneling it probed towards the plantar skin of the foot. An incision was made and additional purulent drainage was appreciated to the plantar aspect. Wound cultures were obtained of the purulence of the left foot. Excisional debridement of skin/subQ/muscle/tendon of the wound site was performed at the 5th digit amputation site and the wound measured 2.5 x 2.5 x 1cm and tunneled 3cm in the plantar proximal direction. Approximately 8-10mL of purulent drainage was removed from the ulceration site. Necrotic, fibrotic and skin slough tissue was removed with scalpel and pickup/scissors. Area of debridement was 6.25 Next, attention was directed to the plantar heel aspect where the ulceration located measured 4 x 2.5 x 0.2cm granular wound base with hyperkeratotic rim. The ulcer probes to heel bone. Excisional debridement of skin/subQ performed with scalpel blade. Biofilm, fibrotic tissue, and hyperkeratotic tissue was removed. 10cm2 of area was debrided. Total area of debridement 16.25cm2 Copious pulse lavage irrigation and antibiotic infused saline irrigation was used at the surgical sites. Iodoform packing strips were placed into the tunneling ulceration sites. Next, an antibiotic spacer with vancomycin and gentamicin was used to place in to the ulceration sites. Xeroform was applied to the wound site and the left plantar heel antibiotic spacer with xeroform was secured in place. Dry sterile dressings were applied to the left lower extremity Patient was transferred to the PACU with vital signs stable and neurovascular status intact. RICO STREETER DPM Aug 13, 2018 14:29
[2018-08-13] MEDS ORDERED: FENTAnyl 50 MCG/ML VIAL IV PRN (14:30)
[2018-08-13] MEDS ORDERED: MEPERIDINE 25 MG INJ IV PRN (14:30)
[2018-08-13] MEDS ORDERED: METOCLOPRAMIDE 10 MG INJ IV PRN (14:30)
[2018-08-13] MEDS ORDERED: ONDANSETRON 4 MG INJ IV PRN (14:30)
[2018-08-13] MEDS ORDERED: HYDROmorphONE 1 MG/5 ML IV SYRINGE IV PRN ×2 (14:30)
[2018-08-13] MEDS ORDERED: DIPHENHYDRAMINE 50 MG INJ IV PRN (14:30)
--- NOTE | 2018-08-13 14:47 | CONS ---
Assessment/Plan Assessment/Plan Hospital Course (Demo Recall) assessment/impression - sepsis due to diabetic ulcer, infection and gangrene of L 5th toe, and bacteremia - slowly improving - bacteremia due to MRSA related to wound infection - diabetic ulcer, infection and gangrene of L 5th toe due to MRSA - OM of L 5th distal phalanx (based on XR), no OM in the visualized portions of the distal L 5th phalanx, possibly early OM of L 5th metatarsal and base of L 5th proximal phalanx, OM in the head of L 2nd metatarsal; probably residual OM of L heel, tendonitis (based on MRI) - Charcot's deformity - L shoulder pain, XR on 08/11/2018 showed DJD - h/o gangrene of b/l heel - h/o infection of the gangrenous wound and OM of L heel s/p excisional debridement of necrotic skin, subcutaneous tissue, ligament and muscle of L foot, Bx of L calcaneus on 09/30/2017. The culture of the biopsied bone did not grow bacteria while the culture of the heel wound grew nutritionally deficient streptococci. Pathology exam showed acute and chronic osteomyelitis of the b iopsied bone - PVD - s/p angioplasty of LLE in 2018 - DM - diabetic neuropathy of b/l feet and ankle - ESRD on HD via permacath on L chest recommendations - pending results: blood cultures from HD catheter (both drawn on 08/11/2018 shows NGTD) - DC pip/tazo - continue renally dosed IV vancomycin (08/11/2018-) - we recommend holding off placement of PICC. Pt may end up getting an antibiotic that could be given via HD catheter, sparing PICC (e.g. vancomycin). We also recommend holding PICC placement until his bacteremia clears - wound care consult - please order transthoracic echo to r/o endocarditis Management d/w MI Eugene and Dr. Benitez Consultation Date/Type/Reason Admit Date/Time Aug 10, 2018 at 23:19 Initial Consult Date 08/11/18 Type of Consult Infectious Disease Requesting Provider: CIARA PINEDA MD Date/Time of Note DATE: 08/13/18 TIME: 14:45 24 HR Interval Summary Free Text/Dictation Tmax 100.4F and fever curve and leukocytosis are trending down. Initial blood cx x2 and wound cx are all growing MRSA. Pt is in OR; HD scheduled for this evening per d/w nursing. Exam/Review of Systems Exam Vitals Vital Signs Date Temp Pulse Resp B/P (MAP) Pulse Ox O2 O2 Flow FiO2 Time Delivery Rate 08/13/18 96 16 135/76 100 Mask 8.0 14:25 (95) 08/13/18 98.8 14:24 Intake and Output 08/12/18 08/12/18 08/13/18 1515:00 23:00 07:00 IntakeIntake Total 1350 ml 950 ml 1450 ml OutputOutput Total 600 ml BalanceBalance 1350 ml 950 ml 850 ml Exam Pt in OR Results Result Diagram: 08/13/1852608/13/18526 Results 24hrs Laboratory Tests Test 08/12/18 17:34 08/12/18 20:05 08/12/18 20:50 08/13/18 02:20 Bedside Glucose 172 200 136 Erythrocyte 128 H Sedimentation Rate C-Reactive Protein 25.7 H Test 08/13/18 05:00 08/13/18 05:27 08/13/18 07:55 08/13/18 12:14 Erythrocyte 127 H Sedimentation Rate C-Reactive Protein 23.7 H White Blood Count 20.1 H Red Blood Count 3.04 L Hemoglobin 9.9 L Hematocrit 30.1 L Mean Corpuscular 99.0 Volume Mean Corpuscular 32.6 Hemoglobin Mean Corpuscular 32.9 Hemoglobin Concent Red Cell 15.8 H Distribution Width Platelet Count 340 Mean Platelet Volume 9.1 Immature 1.100 H Granulocytes % Neutrophils % 83.1 H Lymphocytes % 8.0 L Monocytes % 5.9 Eosinophils % 1.6 Basophils % 0.3 Nucleated Red Blood 0.0 Cells % Immature 0.220 H Granulocytes # Neutrophils # 16.7 H Lymphocytes # 1.6 Monocytes # 1.2 H Eosinophils # 0.3 Basophils # 0.1 Nucleated Red Blood 0.0 Cells # Sodium Level 131 L Potassium Level 4.7 Chloride Level 95 L Carbon Dioxide Level 23 Anion Gap 13 Blood Urea Nitrogen 65 H Creatinine 8.26 H Est Glomerular 7 L Filtrat Rate mL/min Glucose Level 116 # Calcium Level 7.8 L Triglycerides Level 254 H Cholesterol Level 93 L LDL Cholesterol, 28 Calculated HDL Cholesterol 14 L Cholesterol/HDL 6.6 Ratio Bedside Glucose 124 116 Medications Medication Current Medications Sodium Chloride 1,000 ml @ 100 mls/hr Q10H IV Last administered on 08/13/18 05:29; Admin Dose 100 MLS/HR; Start 08/11/18 at 01:38 IV Flush (NS 3 ml) 3 ml PER PROTOCOL IV ; Start 08/11/18 at 02:00 Ondansetron HCl (Zofran Inj) 4 mg Q6H PRN IV NAUSEA/VOMITING; Start 08/11/18 at 02:00 Acetaminophen (Tylenol Tab) 650 mg Q6H PRN PO .PAIN 1-3 OR TEMP; Start 08/11/18 at 02:00 Acetaminophen/ Hydrocodone Bitart ([place] (5/325)) 1 tab Q6H PRN PO .PAIN 4-6 Last administered on 08/12/18 20:59; Admin Dose 1 TAB; Start 08/11/18 at 02:00 Acetaminophen/ Hydrocodone Bitart ([place] (5/325)) 2 tab Q6H PRN PO .PAIN 7-10 Last administered on 08/11/18 02:29; Admin Dose 2 TAB; Start 08/11/18 at 02:00 Heparin Sodium (Porcine) (Heparin (5000 Units/1ml)) 5,000 unit Q12 SC Last administered on 08/12/18 09:00; Admin Dose 5,000 UNIT; Start 08/11/18 at 09:00 Albuterol/ Ipratropium (Duoneb) 3 ml Q2H RESP THERAPY PRN HHN SHORTNESS OF BREATH; Start 08/11/18 at 02:00 Ascorbic Acid (Vitamin C) 500 mg DAILY PO Last administered on 08/12/18 08:59; Admin Dose 500 MG; Start 08/11/18 at 09:00 Clopidogrel Bisulfate (plaVIX) 75 mg DAILY PO Last administered on 08/12/18 08:59; Admin Dose 75 MG; Start 08/11/18 at 09:00 Multivit/Ca Carb/ B Cmplx/FA/Prenat ([place]en[place]-Odalis) 1 tab DAILY PO Last administered on 08/12/18 08:59; Admin Dose 1 TAB; Start 08/11/18 at 09:00 Pantoprazole (Protonix Tab) 40 mg DAILY@06 PO Last administered on 08/12/18 06:02; Admin Dose 40 MG; Start 08/11/18 at 06:00 Sevelamer Carbonate (Renvela) 0.8 gm WITH MEALS PO Last administered on 08/12/18at 12:07; Admin Dose 0.8 GM; Start 08/11/18 at 08:00 Vancomycin HCl (Vanco Iv Per Pharmacy) VANCOMYCIN PER PHARMACY PER PROTOCOL XX ; Start 08/11/18 at 02:00 Piperacillin Sod/ Tazobactam Sod 50 ml @ 100 mls/hr Q8 IVPB Last administered on 08/13/18at 05:29; Admin Dose 100 MLS/HR; Start 08/11/18 at 06:00 Heparin Sodium (Porcine) (Heparin (1000 Units/ml)) 4,200 unit AFTER DIALYSIS CATHETER ; Start 08/11/18 at 16:30 Diagnostic Test (Pha) (Accu-Chek) 1 ea 02 XX Last administered on 08/13/18at 02:18; Admin Dose 1 EA; Start 08/12/18 at 02:00 Insulin Aspart (Novolog Insulin Pen) NOVOLOG *MILD* ALGORITHM WITH MEALS BEDTIME SC Last administered on 08/12/18at 20:55; Admin Dose 1 UNIT; Start 08/11/18 at 18:05 Miscellaneous Information 1 ea NOTE XX ; Start 08/11/18 at 17:30 Glucose (Glutose) 15 gm Q15M PRN PO DECREASED GLUCOSE; Start 08/11/18 at 17:30 Glucose (Glutose) 22.5 gm Q15M PRN PO DECREASED GLUCOSE; Start 08/11/18 at 17:30 Dextrose (D50w Syringe) 25 ml Q15M PRN IV DECREASED GLUCOSE; Start 08/11/18 at 17:30 Dextrose (D50w Syringe) 50 ml Q15M PRN IV DECREASED GLUCOSE; Start 08/11/18 at 17:30 Glucagon (Glucagen) 1 mg Q15M PRN IM DECREASED GLUCOSE; Start 08/11/18 at 17:30 Glucose (Glutose) 15 gm Q15M PRN BUCCAL DECREASED GLUCOSE; Start 08/11/18 at 17:30 Midodrine (Proamatine) 5 mg TID PO Last administered on 08/12/18at 20:59; Admin Dose 5 MG; Start 08/12/18 at 13:00 Epoetin Yonas-epbx (RETACRIT(esrd)) 10,000 unit MoWeFr@1700 SC Last administered on 08/13/18at 00:36; Admin Dose 10,000 UNIT; Start 08/12/18 at 17:00 Sodium Hypochlorite (Dakins Diluted ()) 1 applic DAILY TP ; Start 08/13/18 at 09:00 Hydromorphone HCl (Dilaudid) 0.2 mg PACU PRN IV MILD PAIN 1-3; Start 08/13/18 at 14:30; Stop 08/13/18 at 18:30 Hydromorphone HCl (Dilaudid) 0.4 mg PACU PRN IV MOD PAIN 4-6; Start 08/13/18 at 14:30; Stop 08/13/18 at 18:30 Fentanyl (Sublimaze) 25 mcg PACU ORDER PRN IV MILD PAIN 1-3; Start 08/13/18 at 14:30; Stop 08/13/18 at 18:30 Ondansetron HCl (Zofran Inj) 4 mg PACU ORDER PRN IV NAUSEA/VOMITING; Start 08/13/18 at 14:30; Stop 08/13/18 at 18:30 Metoclopramide HCl (Reglan) 10 mg PACU ORDER PRN IV NAUSEA/VOMITING; Start 08/13/18 at 14:30; Stop 08/13/18 at 18:30 Meperidine HCl (Demerol) 25 mg PACU ORDER PRN IV .RIGORS; Start 08/13/18 at 14:30; Stop 08/13/18 at 18:30 Diphenhydramine HCl (Benadryl) 25 mg PACU ORDER PRN IV .PRURITUS; Start 08/13/18 at 14:30; Stop 08/13/18 at 18:30 RONEY DALAL NP Aug 13, 2018 14:47
[2018-08-13] MEDS ORDERED: POLYETHYLENE GLYCOL 17 GM PACKET PO ONE (16:00)
[2018-08-13] MEDS ORDERED: BISACODYL (EC) 5 MG TAB PO ONE (16:00)
--- NOTE | 2018-08-13 16:45 | PN ---
Date/Time of Note Date/Time of Note DATE: 08/13/18 TIME: 16:42 Assessment/Plan VTE Prophylaxis Risk score (from [facility] [place]0 risk: 3 SCD applied (from [facility] [place]): Yes Pharmacological prophylaxis: heparin Lines/Catheters IV Catheter Type (from [facility]): Peripheral IV Urinary Cath still in place: No Assessment/Plan Problems: (1) Osteomyelitis of left foot Status: Acute Comment: For surgical approach today to finish cleaning this up. He will need long-term IV antibiotics. To see infectious disease consult about the suggested management Qualifiers: Osteomyelitis type: subacute Qualified Codes: M86.272 - Subacute osteomyelitis, left ankle and foot (2) Bacteremia due to methicillin resistant Staphylococcus aureus Status: Acute Comment: On appropriate antibiotic therapy and isolation (3) Charcot's joint of left ankle Status: Chronic Comment: Noted. (4) Peripheral vascular disease due to secondary diabetes Status: Chronic Comment: Noted. Maximum risk factor reduction (5) End stage renal disease on dialysis due to type 2 diabetes mellitus Status: Chronic Comment: As per nephrology (6) Essential hypertension Status: Chronic Comment: Adequate control at this time (7) Diabetes mellitus type 2 with complications Status: Chronic Comment: Control is good at this time given the totality of the situation Qualifiers: Diabetes mellitus snf insulin use: with snf use Qualified Codes: E11.8 - Type 2 diabetes mellitus with unspecified complications; Z79.4 - meterman (current) use of insulin (8) Anemia Status: Chronic Comment: Partially due to inflammation and from the renal insufficiency. Qualifiers: Anemia type: due to chronic kidney disease Chronic kidney disease stage: on chronic dialysis Qualified Codes: N18.6 - End stage renal disease; D63.1 - Anemia in chronic kidney disease; Z99.2 - Dependence on renal dialysis Result Diagram: 08/13/1852608/13/18526 Results 24hrs Laboratory Tests Test 08/12/18 17:34 08/12/18 20:05 08/12/18 20:50 08/13/18 02:20 Bedside Glucose 172 200 136 Erythrocyte 128 H Sedimentation Rate C-Reactive Protein 25.7 H Test 08/13/18 05:00 08/13/18 05:27 08/13/18 07:55 08/13/18 12:14 Erythrocyte 127 H Sedimentation Rate C-Reactive Protein 23.7 H White Blood Count 20.1 H Red Blood Count 3.04 L Hemoglobin 9.9 L Hematocrit 30.1 L Mean Corpuscular 99.0 Volume Mean Corpuscular 32.6 Hemoglobin Mean Corpuscular 32.9 Hemoglobin Concent Red Cell 15.8 H Distribution Width Platelet Count 340 Mean Platelet Volume 9.1 Immature 1.100 H Granulocytes % Neutrophils % 83.1 H Lymphocytes % 8.0 L Monocytes % 5.9 Eosinophils % 1.6 Basophils % 0.3 Nucleated Red Blood 0.0 Cells % Immature 0.220 H Granulocytes # Neutrophils # 16.7 H Lymphocytes # 1.6 Monocytes # 1.2 H Eosinophils # 0.3 Basophils # 0.1 Nucleated Red Blood 0.0 Cells # Sodium Level 131 L Potassium Level 4.7 Chloride Level 95 L Carbon Dioxide Level 23 Anion Gap 13 Blood Urea Nitrogen 65 H Creatinine 8.26 H Est Glomerular 7 L Filtrat Rate mL/min Glucose Level 116 # Calcium Level 7.8 L Triglycerides Level 254 H Cholesterol Level 93 L LDL Cholesterol, 28 Calculated HDL Cholesterol 14 L Cholesterol/HDL 6.6 Ratio Bedside Glucose 124 116 Subjective 24 Hr Interval Summary Free Text/Dictation Patient reports he is doing relatively well but is somewhat worried about having his foot operated Constitutional: no complaints (No fevers chills or sweats) Respiratory: no complaints Cardiovascular: no complaints Gastrointestinal: no complaints Exam/Review of Systems Exam Vitals Vital Signs Date Temp Pulse Resp B/P (MAP) Pulse Ox O2 O2 Flow FiO2 Time Delivery Rate 08/13/18 102 18 128/77 100 Nasal 3.0 15:33 (94) Cannula 08/13/18 98.8 14:24 Intake and Output 08/12/18 08/12/18 08/13/18 1515:00 23:00 07:00 IntakeIntake Total 1350 ml 950 ml 1450 ml OutputOutput Total 600 ml BalanceBalance 1350 ml 950 ml 850 ml Constitutional: alert, oriented Respiratory: clear to auscultation, normal air movement Cardiovascular: regular rate and rhythm, nl pulses Gastrointestinal: soft, nl liver, spleen, non-tender Results Results 24hrs Laboratory Tests Test 08/12/18 17:34 08/12/18 20:05 08/12/18 20:50 08/13/18 02:20 Bedside Glucose 172 200 136 Erythrocyte 128 H Sedimentation Rate C-Reactive Protein 25.7 H Test 08/13/18 05:00 08/13/18 05:27 08/13/18 07:55 08/13/18 12:14 Erythrocyte 127 H Sedimentation Rate C-Reactive Protein 23.7 H White Blood Count 20.1 H Red Blood Count 3.04 L Hemoglobin 9.9 L Hematocrit 30.1 L Mean Corpuscular 99.0 Volume Mean Corpuscular 32.6 Hemoglobin Mean Corpuscular 32.9 Hemoglobin Concent Red Cell 15.8 H Distribution Width Platelet Count 340 Mean Platelet Volume 9.1 Immature 1.100 H Granulocytes % Neutrophils % 83.1 H Lymphocytes % 8.0 L Monocytes % 5.9 Eosinophils % 1.6 Basophils % 0.3 Nucleated Red Blood 0.0 Cells % Immature 0.220 H Granulocytes # Neutrophils # 16.7 H Lymphocytes # 1.6 Monocytes # 1.2 H Eosinophils # 0.3 Basophils # 0.1 Nucleated Red Blood 0.0 Cells # Sodium Level 131 L Potassium Level 4.7 Chloride Level 95 L Carbon Dioxide Level 23 Anion Gap 13 Blood Urea Nitrogen 65 H Creatinine 8.26 H Est Glomerular 7 L Filtrat Rate mL/min Glucose Level 116 # Calcium Level 7.8 L Triglycerides Level 254 H Cholesterol Level 93 L LDL Cholesterol, 28 Calculated HDL Cholesterol 14 L Cholesterol/HDL 6.6 Ratio Bedside Glucose 124 116 Medications Medication Current Medications Sodium Chloride 1,000 ml @ 100 mls/hr Q10H IV Last administered on 08/13/18at 05:29; Admin Dose 100 MLS/HR; Start 08/11/18 at 01:38 IV Flush (NS 3 ml) 3 ml PER PROTOCOL IV ; Start 08/11/18 at 02:00 Ondansetron HCl (Zofran Inj) 4 mg Q6H PRN IV NAUSEA/VOMITING; Start 08/11/18 at 02:00 Acetaminophen (Tylenol Tab) 650 mg Q6H PRN PO .PAIN 1-3 OR TEMP; Start 08/11/18 at 02:00 Acetaminophen/ Hydrocodone Bitart ([place] (5/325)) 1 tab Q6H PRN PO .PAIN 4-6 Last administered on 08/12/18at 20:59; Admin Dose 1 TAB; Start 08/11/18 at 02:00 Acetaminophen/ Hydrocodone Bitart ([place] (5/325)) 2 tab Q6H PRN PO .PAIN 7-10 Last administered on 08/11/18 02:29; Admin Dose 2 TAB; Start 08/11/18 at 02:00 Heparin Sodium (Porcine) (Heparin (5000 Units/1ml)) 5,000 unit Q12 SC Last administered on 08/12/18 09:00; Admin Dose 5,000 UNIT; Start 08/11/18 at 09:00 Albuterol/ Ipratropium (Duoneb) 3 ml Q2H RESP THERAPY PRN HHN SHORTNESS OF BREATH; Start 08/11/18 at 02:00 Ascorbic Acid (Vitamin C) 500 mg DAILY PO Last administered on 08/12/18 08:59; Admin Dose 500 MG; Start 08/11/18 at 09:00 Clopidogrel Bisulfate (plaVIX) 75 mg DAILY PO Last administered on 08/12/18 08:59; Admin Dose 75 MG; Start 08/11/18 at 09:00 Multivit/Ca Carb/ B Cmplx/FA/Prenat ([place]-Odalis) 1 tab DAILY PO Last administered on 08/12/18 08:59; Admin Dose 1 TAB; Start 08/11/18 at 09:00 Pantoprazole (Protonix Tab) 40 mg DAILY@06 PO Last administered on 08/12/18 06:02; Admin Dose 40 MG; Start 08/11/18 at 06:00 Sevelamer Carbonate (Renvela) 0.8 gm WITH MEALS PO Last administered on 08/12/18 12:07; Admin Dose 0.8 GM; Start 08/11/18 at 08:00 Vancomycin HCl (Vanco Iv Per Pharmacy) VANCOMYCIN PER PHARMACY PER PROTOCOL XX ; Start 08/11/18 at 02:00 Heparin Sodium (Porcine) (Heparin (1000 Units/ml)) 4,200 unit AFTER DIALYSIS CATHETER ; Start 08/11/18 at 16:30 Diagnostic Test (Pha) (Accu-Chek) 1 ea 02 XX Last administered on 08/13/18 02:18; Admin Dose 1 EA; Start 08/12/18 at 02:00 Insulin Aspart (Novolog Insulin Pen) NOVOLOG *MILD* ALGORITHM WITH MEALS BEDTIME SC Last administered on 08/12/18 20:55; Admin Dose 1 UNIT; Start 08/11/18 at 18:05 Miscellaneous Information 1 ea NOTE XX ; Start 08/11/18 at 17:30 Glucose (Glutose) 15 gm Q15M PRN PO DECREASED GLUCOSE; Start 08/11/18 at 17:30 Glucose (Glutose) 22.5 gm Q15M PRN PO DECREASED GLUCOSE; Start 08/11/18 at 17:30 Dextrose (D50w Syringe) 25 ml Q15M PRN IV DECREASED GLUCOSE; Start 08/11/18 at 17:30 Dextrose (D50w Syringe) 50 ml Q15M PRN IV DECREASED GLUCOSE; Start 08/11/18 at 17:30 Glucagon (Glucagen) 1 mg Q15M PRN IM DECREASED GLUCOSE; Start 08/11/18 at 17:30 Glucose (Glutose) 15 gm Q15M PRN BUCCAL DECREASED GLUCOSE; Start 08/11/18 at 17:30 Midodrine (Proamatine) 5 mg TID PO Last administered on 08/12/18at 20:59; Admin Dose 5 MG; Start 08/12/18 at 13:00 Epoetin Yonas-epbx (RETACRIT(esrd)) 10,000 unit MoWeFr@1700 SC Last administered on 08/13/18at 00:36; Admin Dose 10,000 UNIT; Start 08/12/18 at 17:00 Sodium Hypochlorite (Dakins Diluted ()) 1 applic DAILY TP ; Start 08/13/18 at 09:00 Hydromorphone HCl (Dilaudid) 0.2 mg PACU PRN IV MILD PAIN 1-3; Start 08/13/18 at 14:30; Stop 08/13/18 at 18:30 Hydromorphone HCl (Dilaudid) 0.4 mg PACU PRN IV MOD PAIN 4-6; Start 08/13/18 at 14:30; Stop 08/13/18 at 18:30 Fentanyl (Sublimaze) 25 mcg PACU ORDER PRN IV MILD PAIN 1-3; Start 08/13/18 at 14:30; Stop 08/13/18 at 18:30 Ondansetron HCl (Zofran Inj) 4 mg PACU ORDER PRN IV NAUSEA/VOMITING; Start 08/13/18 at 14:30; Stop 08/13/18 at 18:30 Metoclopramide HCl (Reglan) 10 mg PACU ORDER PRN IV NAUSEA/VOMITING; Start 08/13/18 at 14:30; Stop 08/13/18 at 18:30 Meperidine HCl (Demerol) 25 mg PACU ORDER PRN IV .RIGORS; Start 08/13/18 at 14:30; Stop 08/13/18 at 18:30 Diphenhydramine HCl (Benadryl) 25 mg PACU ORDER PRN IV .PRURITUS; Start 08/13/18 at 14:30; Stop 08/13/18 at 18:30 KAREN US MD Aug 13, 2018 16:45
[2018-08-13] MEDS: HYDROCODONE/APAP (5/325) TAB PO PRN (20:21)
[2018-08-14] VITALS (20 sets, daily range): BP systolic 97–155; BP diastolic 52–88; PULSE 71–96; RESP 14–18
[2018-08-14] MEDS: ACCU-CHEK XX SCH (02:00)
[2018-08-14] MEDS: HYDROCODONE/APAP (5/325) TAB PO PRN ×3 (05:50→20:38)
[2018-08-14] MEDS: PANTOPRAZOLE (EC) 40 MG TAB PO SCH (05:50)
[2018-08-14] MEDS: INSULIN ASPART [NOVOLOG] 3 ML PEN SC SCH ×4 (08:00→20:33)
[2018-08-14] MEDS: SEVELAMER CARBONATE 0.8 GM PKT PO SCH ×3 (08:59→17:24)
[2018-08-14] MEDS: MIDODRINE 5 MG TAB PO SCH ×3 (08:59→20:38)
[2018-08-14] MEDS: DAKINS 0.0125%(1/40) 473 ML SOLUTION TP SCH (09:00)
[2018-08-14] MEDS: HEPARIN 5,000 UNIT/1 ML VIAL SC SCH ×2 (09:01→20:41)
--- NOTE | 2018-08-14 09:16 | PN ---
Date/Time of Note Date/Time of Note DATE: 08/14/18 TIME: 09:14 Assessment/Plan VTE Prophylaxis Risk score (from Ns)>0 risk: 5 SCD applied (from Ns): Yes Pharmacological prophylaxis: heparin Lines/Catheters IV [facility]ter [facility]from [facility] Peripheral IV Urinary Cath still in place: No Assessment/Plan Problems: (1) Bacteremia due to methicillin resistant Staphylococcus aureus Status: Acute Comment: Biotic therapy at this time. Infectious disease to help guide us for duration of treatment. 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 Being dialyzed now (4) Peripheral vascular disease due to secondary diabetes Status: Chronic Comment: Noted. Status post surgical debridement yesterday (5) Osteomyelitis of left foot Status: Acute Comment: As above. Qualifiers: Osteomyelitis type: subacute Qualified Codes: M86.272 - Subacute osteomyelitis, left ankle and foot (6) Charcot's joint of left ankle Status: Chronic Comment: Noted. (7) Essential hypertension Status: Chronic Comment: Adequate control Result Diagram: 08/14/18 0540 08/14/18 0540 Results 24hrs Laboratory Tests Test 08/13/18 12:14 08/13/18 16:53 08/13/18 20:27 08/14/18 05:40 Bedside Glucose 116 154 156 White Blood Count 23.8 H Red Blood Count 2.84 L Hemoglobin 8.8 L Hematocrit 27.8 L Mean Corpuscular 97.9 Volume Mean Corpuscular 31.0 Hemoglobin Mean Corpuscular 31.7 L Hemoglobin Concent Red Cell 15.9 H Distribution Width Platelet Count 311 Mean Platelet Volume 9.0 Immature 1.700 H Granulocytes % Neutrophils % 84.1 H Lymphocytes % 5.4 L Monocytes % 7.7 Eosinophils % 0.8 Basophils % 0.3 Nucleated Red Blood 0.0 Cells % Immature 0.400 H Granulocytes # Neutrophils # 20.0 H Lymphocytes # 1.3 Monocytes # 1.8 H Eosinophils # 0.2 Basophils # 0.1 Nucleated Red Blood 0.0 Cells # Sodium Level 132 L Potassium Level 5.0 Chloride Level 99 Carbon Dioxide Level 19 L Anion Gap 14 H Blood Urea Nitrogen 72 H Creatinine 9.06 H Est Glomerular 6 L Filtrat Rate mL/min Glucose Level 133 Calcium Level 7.6 L Random Vancomycin 9.8 Level Test 08/14/18 07:53 Bedside Glucose 130 Subjective 24 Hr Interval Summary Free Text/Dictation Patient reports he is feeling relatively well. Some pain in the foot Constitutional: no complaints (No fevers chills or sweats) Respiratory: no complaints Cardiovascular: no complaints Gastrointestinal: no complaints Exam/Review of Systems Exam Vitals Vital Signs Date Temp Pulse Resp B/P (MAP) Pulse Ox O2 O2 Flow FiO2 Time Delivery Rate 08/14/18 97.9 76 16 116/62 95 08:15 (80) 08/13/18 Nasal 3.0 15:33 Cannula Intake and Output 08/13/18 08/13/18 08/14/18 1515:00 23:00 07:00 IntakeIntake Total 1100 ml 950 ml 1560 ml OutputOutput Total 30 ml 300 ml BalanceBalance 1070 ml 650 ml 1560 ml Constitutional: alert, oriented Respiratory: clear to auscultation, normal air movement Cardiovascular: regular rate and rhythm, nl pulses Results Results 24hrs Laboratory Tests Test 08/13/18 12:14 08/13/18 16:53 08/13/18 20:27 08/14/18 05:40 Bedside Glucose 116 154 156 White Blood Count 23.8 H Red Blood Count 2.84 L Hemoglobin 8.8 L Hematocrit 27.8 L Mean Corpuscular 97.9 Volume Mean Corpuscular 31.0 Hemoglobin Mean Corpuscular 31.7 L Hemoglobin Concent Red Cell 15.9 H Distribution Width Platelet Count 311 Mean Platelet Volume 9.0 Immature 1.700 H Granulocytes % Neutrophils % 84.1 H Lymphocytes % 5.4 L Monocytes % 7.7 Eosinophils % 0.8 Basophils % 0.3 Nucleated Red Blood 0.0 Cells % Immature 0.400 H Granulocytes # Neutrophils # 20.0 H Lymphocytes # 1.3 Monocytes # 1.8 H Eosinophils # 0.2 Basophils # 0.1 Nucleated Red Blood 0.0 Cells # Sodium Level 132 L Potassium Level 5.0 Chloride Level 99 Carbon Dioxide Level 19 L Anion Gap 14 H Blood Urea Nitrogen 72 H Creatinine 9.06 H Est Glomerular 6 L Filtrat Rate mL/min Glucose Level 133 Calcium Level 7.6 L Random Vancomycin 9.8 Level Test 08/14/18 07:53 Bedside Glucose 130 Medications Medication Current Medications Sodium Chloride 1,000 ml @ 100 mls/hr Q10H IV Last administered on 08/13/18 22:55; Admin Dose 100 MLS/HR; Start 08/11/18 at 01:38 IV Flush (NS 3 ml) 3 ml PER PROTOCOL IV ; Start 08/11/18 at 02:00 Ondansetron HCl (Zofran Inj) 4 mg Q6H PRN IV NAUSEA/VOMITING; Start 08/11/18 at 02:00 Acetaminophen (Tylenol Tab) 650 mg Q6H PRN PO .PAIN 1-3 OR TEMP Last admi nistered on 08/13/18 19:11; Admin Dose 650 MG; Start 08/11/18 at 02:00 Acetaminophen/ Hydrocodone Bitart ([place] (5/325)) 1 tab Q6H PRN PO .PAIN 4-6 Last administered on 08/14/18 05:50; Admin Dose 1 TAB; Start 08/11/18 at 02:00 Acetaminophen/ Hydrocodone Bitart ([place] (5/325)) 2 tab Q6H PRN PO .PAIN 7-10 Last administered on 08/11/18 02:29; Admin Dose 2 TAB; Start 08/11/18 at 02:00 Heparin Sodium (Porcine) (Heparin (5000 Units/1ml)) 5,000 unit Q12 SC Last administered on 08/14/18 09:01; Admin Dose 5,000 UNIT; Start 08/11/18 at 09:00 Albuterol/ Ipratropium (Duoneb) 3 ml Q2H RESP THERAPY PRN HHN SHORTNESS OF BREATH; Start 08/11/18 at 02:00 Ascorbic Acid (Vitamin C) 500 mg DAILY PO Last administered on 08/12/18 08:59; Admin Dose 500 MG; Start 08/11/18 at 09:00 Clopidogrel Bisulfate (plaVIX) 75 mg DAILY PO Last administered on 08/12/18 08:59; Admin Dose 75 MG; Start 08/11/18 at 09:00 Multivit/Ca Carb/ B Cmplx/FA/Prenat (Yeny-Odalis) 1 tab DAILY PO Last administered on 08/12/18at 08:59; Admin Dose 1 TAB; Start 08/11/18 at 09:00 Pantoprazole (Protonix Tab) 40 mg DAILY@06 PO Last administered on 08/14/18at 05:50; Admin Dose 40 MG; Start 08/11/18 at 06:00 Sevelamer Carbonate (Renvela) 0.8 gm WITH MEALS PO Last administered on 08/14/18at 08:59; Admin Dose 0.8 GM; Start 08/11/18 at 08:00 Vancomycin HCl (Vanco Iv Per Pharmacy) VANCOMYCIN PER PHARMACY PER PROTOCOL XX ; Start 08/11/18 at 02:00 Heparin Sodium (Porcine) (Heparin (1000 Units/ml)) 4,200 unit AFTER DIALYSIS CATHETER ; Start 08/11/18 at 16:30 Diagnostic Test (Pha) (Accu-Chek) 1 ea 02 XX Last administered on 08/13/18at 02:18; Admin Dose 1 EA; Start 08/12/18 at 02:00 Insulin Aspart (Novolog Insulin Pen) NOVOLOG *MILD* ALGORITHM WITH MEALS BEDTIME SC Last administered on 08/13/18at 17:28; Admin Dose 1 UNIT; Start 08/11/18 at 18:05 Miscellaneous Information 1 ea NOTE XX ; Start 08/11/18 at 17:30 Glucose (Glutose) 15 gm Q15M PRN PO DECREASED GLUCOSE; Start 08/11/18 at 17:30 Glucose (Glutose) 22.5 gm Q15M PRN PO DECREASED GLUCOSE; Start 08/11/18 at 17:30 Dextrose (D50w Syringe) 25 ml Q15M PRN IV DECREASED GLUCOSE; Start 08/11/18 at 17:30 Dextrose (D50w Syringe) 50 ml Q15M PRN IV DECREASED GLUCOSE; Start 08/11/18 at 17:30 Glucagon (Glucagen) 1 mg Q15M PRN IM DECREASED GLUCOSE; Start 08/11/18 at 17:30 Glucose (Glutose) 15 gm Q15M PRN BUCCAL DECREASED GLUCOSE; Start 08/11/18 at 17:30 Midodrine (Proamatine) 5 mg TID PO Last administered on 08/14/18at 08:59; Admin Dose 5 MG; Start 08/12/18 at 13:00 Epoetin Yonas-epbx (RETACRIT(esrd)) 10,000 unit MoWeFr@1700 SC Last administered on 08/13/18at 00:36; Admin Dose 10,000 UNIT; Start 08/12/18 at 17:00 Sodium Hypochlorite (Dakins Diluted ()) 1 applic DAILY TP ; Start 08/13/18 at 09:00 Vancomycin HCl 250 ml @ 125 mls/hr 0930 IVPB ; Start 08/14/18 at 09:30; Stop 08/14/18 at 19:00 KAREN US MD Aug 14, 2018 09:16
[2018-08-14] MEDS ORDERED: VANCOMYCIN 1 GM 250 ML IVPB SCH ×2 (09:30→13:00)
[2018-08-14] MEDS ORDERED: ALBUMIN HUMAN 25% 100 ML IV PRN (10:00)
[2018-08-14] MEDS ORDERED: ALTEPLASE (CATHFLO) 2 MG INJ CATHETER ONE (10:00)
--- NOTE | 2018-08-14 12:06 | CONS ---
[facility] HCIS Consult Follow-up Patient Name: Neftaly Kraft Unit Number: [id number] Date of : 1955 Patient Status: Admitted Inpatient Attending Doctor: Brendan Pineda MD Edit: JUAN J ZAVALA M.D. on 08/15/18 @ 18:47 Lucas attest: I discussed the management with MAYCOL Dalal and agree Assessment/Plan Assessment/Plan Hospital Course (Demo Recall) assessment/impression - sepsis due to diabetic ulcer, infection and gangrene of L 5th toe, and bacteremia - bacteremia due to MRSA related to wound infection - diabetic ulcer, infection and gangrene of L 5th toe due to MRSA - s/p L foot excisional debridement, L foot amputation of 5th digit and application of antibiotic spacer on 08/13/2018 - OM of L 5th distal phalanx (based on XR), no OM in the visualized portions of the distal L 5th phalanx, possibly early OM of L 5th metatarsal and base of L 5th proximal phalanx, OM in the head of L 2nd metatarsal; probably residual OM of L heel, tendonitis (based on MRI) - Charcot's deformity of L foot - L shoulder pain, XR on 08/11/2018 showed DJD - h/o gangrene of b/l heel - h/o infection of the gangrenous wound and OM of L heel s/p excisional debridement of necrotic skin, subcutaneous tissue, ligament and muscle of L kyra t, Bx of L calcaneus on 09/30/2017. The culture of the biopsied bone did not grow bacteria while the culture of the heel wound grew nutritionally deficient streptococci. Pathology exam showed acute and chronic osteomyelitis of the biopsied bone - PVD - s/p angioplasty of LLE in 2018 - T2DM - Hgb A1c 6.2% - diabetic neuropathy of b/l feet and ankle - ESRD on HD via permacath on L chest recommendations - pending results: blood cultures from HD catheter (both drawn on 08/11/2018 shows NGTD) - continue renally dosed IV vancomycin (08/11/2018-); s/p pip/tazo - we recommend holding off placement of PICC. Pt may end up getting an antibiotic that could be given via HD catheter, sparing PICC (e.g. vancomycin). We also recommend holding PICC placement until his bacteremia clears - trend fever curve and leukocytosis - continue local wound care - please order transthoracic echo to r/o endocarditis - contact isolation for MRSA Management d/w patient, RN Valorie, and Dr. Zavala Consultation Date/Type/Reason Admit Date/Time Aug 10, 2018 at 23:19 Initial Consult Date 08/11/18 Type of Consult Infectious Disease Requesting Provider: BRENDAN PINEDA MD Date/Time of Note DATE: 08/14/18 TIME: 11:59 24 HR Interval Summary Free Text/Dictation Febrile last night after surgery but no chills. S/p L 5th digit amputation yesterday, febrile up to 102.8F last night with no recurrent fever this AM. C/o L shoulder pain. Denies L foot pain. Denies SOB, n/v/d, dysuria. Getting HD. Exam/Review of Systems Exam Vitals Vital Signs Date Temp Pulse Resp B/P (MAP) Pulse Ox O2 O2 Flow FiO2 Time Delivery Rate 08/14/18 97.9 76 16 116/62 95 08:15 (80) 08/13/18 Nasal 3.0 15:33 Cannula Intake and Output 08/13/18 08/13/18 08/14/18 1515:00 23:00 07:00 IntakeIntake Total 1100 ml 950 ml 1560 ml OutputOutput Total 30 ml 300 ml BalanceBalance 1070 ml 650 ml 1560 ml Constitutional: alert, oriented, well developed, other (HD in progress) Psych: no complaints, nl mood/affect Head: normocephalic, atraumatic Eyes: nl conjunctiva, nl lids, nl sclera ENMT: nl external ears & nose, nl nasal mucosa & septum Neck: supple, other (not swollen) Respiratory: clear to auscultation, normal air movement, other (on room air) Cardiovascular: regular rate and rhythm, nl pulses Gastrointestinal: soft, non-tender; No distended Musculoskeletal: range of motion (decreased ROM of L shoulder d/t pain), other (L foot with bulky dressing c/d/i) Extremities: normal pulses, edema (LLE) Neurological: nl mental status, nl speech Skin: nl turgor, other (discoloration of bilateral daley area; L chest wall with HD catheter intact with HD in progress) Results Result Diagram: 08/14/18 0540 08/14/18 0540 Results 24hrs Laboratory Tests Test 08/13/18 12:14 08/13/18 16:53 08/13/18 20:27 08/14/18 05:40 Bedside Glucose 116 154 156 White Blood Count 23.8 H Red Blood Count 2.84 L Hemoglobin 8.8 L Hematocrit 27.8 L Mean Corpuscular 97.9 Volume Mean Corpuscular 31.0 Hemoglobin Mean Corpuscular 31.7 L Hemoglobin Concent Red Cell 15.9 H Distribution Width Platelet Count 311 Mean Platelet Volume 9.0 Immature 1.700 H Granulocytes % Neutrophils % 84.1 H Lymphocytes % 5.4 L Monocytes % 7.7 Eosinophils % 0.8 Basophils % 0.3 Nucleated Red Blood 0.0 Cells % Immature 0.400 H Granulocytes # Neutrophils # 20.0 H Lymphocytes # 1.3 Monocytes # 1.8 H Eosinophils # 0.2 Basophils # 0.1 Nucleated Red Blood 0.0 Cells # Sodium Level 132 L Potassium Level 5.0 Chloride Level 99 Carbon Dioxide Level 19 L Anion Gap 14 H Blood Urea Nitrogen 72 H Creatinine 9.06 H Est Glomerular 6 L Filtrat Rate mL/min Glucose Level 133 Calcium Level 7.6 L Random Vancomycin 9.8 Level Test 08/14/18 07:53 08/14/18 11:49 Bedside Glucose 130 118 Medications Medication Current Medications Sodium Chloride 1,000 ml @ 100 mls/hr Q10H IV Last administered on 08/13/18at 22:55; Admin Dose 100 MLS/HR; Start 08/11/18 at 01:38 IV Flush (NS 3 ml) 3 ml PER PROTOCOL IV ; Start 08/11/18 at 02:00 Ondansetron HCl (Zofran Inj) 4 mg Q6H PRN IV NAUSEA/VOMITING; Start 08/11/18 at 02:00 Acetaminophen (Tylenol Tab) 650 mg Q6H PRN PO .PAIN 1-3 OR TEMP Last administered on 08/13/18 19:11; Admin Dose 650 MG; Start 08/11/18 at 02:00 Acetaminophen/ Hydrocodone Bitart ([place] (5/325)) 1 tab Q6H PRN PO .PAIN 4-6 Last administered on 08/14/18 05:50; Admin Dose 1 TAB; Start 08/11/18 at 02:00 Acetaminophen/ Hydrocodone Bitart ([place] (5/325)) 2 tab Q6H PRN PO .PAIN 7-10 Last administered on 08/11/18 02:29; Admin Dose 2 TAB; Start 08/11/18 at 02:00 Heparin Sodium (Porcine) (Heparin (5000 Units/1ml)) 5,000 unit Q12 SC Last administered on 08/14/18 09:01; Admin Dose 5,000 UNIT; Start 08/11/18 at 09:00 Albuterol/ Ipratropium (Duoneb) 3 ml Q2H RESP THERAPY PRN HHN SHORTNESS OF BREATH; Start 08/11/18 at 02:00 Ascorbic Acid (Vitamin C) 500 mg DAILY PO Last administered on 08/12/18 08:59; Admin Dose 500 MG; Start 08/11/18 at 09:00 Clopidogrel Bisulfate (plaVIX) 75 mg DAILY PO Last administered on 08/12/18 08:59; Admin Dose 75 MG; Start 08/11/18 at 09:00 Multivit/Ca Carb/ B Cmplx/FA/Prenat (Yeny-Odalis) 1 tab DAILY PO Last administered on 08/12/18 08:59; Admin Dose 1 TAB; Start 08/11/18 at 09:00 Pantoprazole (Protonix Tab) 40 mg DAILY@06 PO Last administered on 08/14/18 05:50; Admin Dose 40 MG; Start 08/11/18 at 06:00 Sevelamer Carbonate (Renvela) 0.8 gm WITH MEALS PO Last administered on 08/14/18 08:59; Admin Dose 0.8 GM; Start 08/11/18 at 08:00 Vancomycin HCl (Vanco Iv Per Pharmacy) VANCOMYCIN PER PHARMACY PER PROTOCOL XX ; Start 08/11/18 at 02:00 Heparin Sodium (Porcine) (Heparin (1000 Units/ml)) 4,200 unit AFTER DIALYSIS CATHETER ; Start 08/11/18 at 16:30 Diagnostic Test (Pha) (Accu-Chek) 1 ea 02 XX Last administered on 08/13/18at 02:18; Admin Dose 1 EA; Start 08/12/18 at 02:00 Insulin Aspart (Novolog Insulin Pen) NOVOLOG *MILD* ALGORITHM WITH MEALS BEDTIME SC Last administered on 08/13/18at 17:28; Admin Dose 1 UNIT; Start 08/11/18 at 18:05 Miscellaneous Information 1 ea NOTE XX ; Start 08/11/18 at 17:30 Glucose (Glutose) 15 gm Q15M PRN PO DECREASED GLUCOSE; Start 08/11/18 at 17:30 Glucose (Glutose) 22.5 gm Q15M PRN PO DECREASED GLUCOSE; Start 08/11/18 at 17:30 Dextrose (D50w Syringe) 25 ml Q15M PRN IV DECREASED GLUCOSE; Start 08/11/18 at 17:30 Dextrose (D50w Syringe) 50 ml Q15M PRN IV DECREASED GLUCOSE; Start 08/11/18 at 17:30 Glucagon (Glucagen) 1 mg Q15M PRN IM DECREASED GLUCOSE; Start 08/11/18 at 17:30 Glucose (Glutose) 15 gm Q15M PRN BUCCAL DECREASED GLUCOSE; Start 08/11/18 at 17:30 Midodrine (Proamatine) 5 mg TID PO Last administered on 08/14/18at 08:59; Admin Dose 5 MG; Start 08/12/18 at 13:00 Epoetin Yonas-epbx (RETACRIT(esrd)) 10,000 unit MoWeFr@1700 SC Last administered on 08/13/18at 00:36; Admin Dose 10,000 UNIT; Start 08/12/18 at 17:00 Sodium Hypochlorite (Dakins Diluted ()) 1 applic DAILY TP ; Start 08/13/18 at 09:00 Vancomycin HCl 250 ml @ 125 mls/hr 1300 IVPB ; Start 08/14/18 at 13:00; Stop 08/14/18 at 19:00 Albumin Human 100 ml @ 100 mls/hr DURING DIALYSIS PRN IV Dialysis; Start 08/14/18 at 10:00; Stop 08/15/18 at 23:00 RONEY DALAL NP Aug 14, 2018 12:06
[2018-08-14] MEDS: ASCORBIC ACID 500 MG TAB PO SCH (12:36)
[2018-08-14] MEDS: CLOPIDOGREL 75 MG TAB PO SCH (12:37)
[2018-08-14] MEDS: MULTIVIT/CA CARB/B CMPLX/FA TAB PO SCH (12:37)
[2018-08-14] MEDS: SOD CHLORIDE 0.9% 1,000 ML IV SCH ×2 (12:40→19:38)
--- NOTE | 2018-08-14 14:32 | CONS ---
Assessment/Plan Assessment/Plan Assessment/Plan (Daily) 1. End-stage renal disease. Patient was tachycardic postop yesterday, so HD was done this am, tolerated well 2. Gangrene of the left foot 5th digit. s/p Amputation 3. Severe peripheral artery disease. Vascular surgery following 4. Anemia of chronic kidney disease. Continue AVELINA 5. Type 2 diabetes mellitus. Controlled 6. Hypertension with orthostatic hypotension Continue Midodrine 7. MRSA Bacteremia Receiving Vancomycin Gangrenous toe is source Has tunneled dialysis catheter, may need to be changed 8. Left shoulder pain Good ROM Doubt septic shoulder Consultation Date/Type/Reason Admit Date/Time Aug 10, 2018 at 23:19 Initial Consult Date 08/11/18 Type of Consult Nephrology Requesting Provider: CIARA PINEDA MD Date/Time of Note DATE: 08/14/18 TIME: 14:27 24 HR Interval Summary Free Text/Dictation Complains of left shoulder pain Exam/Review of Systems Exam Vitals Vital Signs Date Temp Pulse Resp B/P (MAP) Pulse Ox O2 O2 Flow FiO2 Time Delivery Rate 08/14/18 86 12:15 08/14/18 16 114/68 95 Room Air 09:00 (83) 08/14/18 97.9 08:15 08/13/18 3.0 15:33 Intake and Output 08/13/18 08/13/18 08/14/18 1515:00 23:00 07:00 IntakeIntake Total 1100 ml 950 ml 1560 ml OutputOutput Total 30 ml 300 ml BalanceBalance 1070 ml 650 ml 1560 ml Constitutional: alert Head: normocephalic, atraumatic Respiratory: clear to auscultation Cardiovascular: regular rate and rhythm Gastrointestinal: soft Extremities: No edema Results Result Diagram: 08/14/18 0540 08/14/18 0540 Results 24hrs Laboratory Tests Test 08/13/18 16:53 08/13/18 20:27 08/14/18 05:40 08/14/18 07:53 Bedside Glucose 154 156 130 White Blood Count 23.8 H Red Blood Count 2.84 L Hemoglobin 8.8 L Hematocrit 27.8 L Mean Corpuscular 97.9 Volume Mean Corpuscular 31.0 Hemoglobin Mean Corpuscular 31.7 L Hemoglobin Concent Red Cell 15.9 H Distribution Width Platelet Count 311 Mean Platelet Volume 9.0 Immature 1.700 H Granulocytes % Neutrophils % 84.1 H Lymphocytes % 5.4 L Monocytes % 7.7 Eosinophils % 0.8 Basophils % 0.3 Nucleated Red Blood 0.0 Cells % Immature 0.400 H Granulocytes # Neutrophils # 20.0 H Lymphocytes # 1.3 Monocytes # 1.8 H Eosinophils # 0.2 Basophils # 0.1 Nucleated Red Blood 0.0 Cells # Sodium Level 132 L Potassium Level 5.0 Chloride Level 99 Carbon Dioxide Level 19 L Anion Gap 14 H Blood Urea Nitrogen 72 H Creatinine 9.06 H Est Glomerular 6 L Filtrat Rate mL/min Glucose Level 133 Calcium Level 7.6 L Random Vancomycin 9.8 Level Test 08/14/18 11:49 Bedside Glucose 118 Medications Medication Current Medications Sodium Chloride 1,000 ml @ 100 mls/hr Q10H IV Last administered on 08/14/18 12:40; Admin Dose 100 MLS/HR; Start 08/11/18 at 01:38 IV Flush (NS 3 ml) 3 ml PER PROTOCOL IV ; Start 08/11/18 at 02:00 Ondansetron HCl (Zofran Inj) 4 mg Q6H PRN IV NAUSEA/VOMITING; Start 08/11/18 at 02:00 Acetaminophen (Tylenol Tab) 650 mg Q6H PRN PO .PAIN 1-3 OR TEMP Last administered on 08/13/18 19:11; Admin Dose 650 MG; Start 08/11/18 at 02:00 Acetaminophen/ Hydrocodone Bitart ([place] (5/325)) 1 tab Q6H PRN PO .PAIN 4-6 L ast administered on 08/14/18 05:50; Admin Dose 1 TAB; Start 08/11/18 at 02:00 Acetaminophen/ Hydrocodone Bitart ([place] (5/325)) 2 tab Q6H PRN PO .PAIN 7-10 Last administered on 08/14/18 14:11; Admin Dose 2 TAB; Start 08/11/18 at 02:00 Heparin Sodium (Porcine) (Heparin (5000 Units/1ml)) 5,000 unit Q12 SC Last administered on 08/14/18 09:01; Admin Dose 5,000 UNIT; Start 08/11/18 at 09:00 Albuterol/ Ipratropium (Duoneb) 3 ml Q2H RESP THERAPY PRN HHN SHORTNESS OF BREATH; Start 08/11/18 at 02:00 Ascorbic Acid (Vitamin C) 500 mg DAILY PO Last administered on 08/14/18 12:36; Admin Dose 500 MG; Start 08/11/18 at 09:00 Clopidogrel Bisulfate (plaVIX) 75 mg DAILY PO Last administered on 08/14/18 12:37; Admin Dose 75 MG; Start 08/11/18 at 09:00 Multivit/Ca Carb/ B Cmplx/FA/Prenat (Yeny-Odalis) 1 tab DAILY PO Last administered on 08/14/18 12:37; Admin Dose 1 TAB; Start 08/11/18 at 09:00 Pantoprazole (Protonix Tab) 40 mg DAILY@06 PO Last administered on 08/14/18 05:50; Admin Dose 40 MG; Start 08/11/18 at 06:00 Sevelamer Carbonate (Renvela) 0.8 gm WITH MEALS PO Last administered on 12:38; Admin Dose 0.8 GM; Start 08/11/18 at 08:00 Vancomycin HCl (Vanco Iv Per Pharmacy) VANCOMYCIN PER PHARMACY PER PROTOCOL XX ; Start 08/11/18 at 02:00 Heparin Sodium (Porcine) (Heparin (1000 Units/ml)) 4,200 unit AFTER DIALYSIS CATHETER ; Start 08/11/18 at 16:30 Diagnostic Test (Pha) (Accu-Chek) 1 ea 02 XX Last administered on 08/13/18at 02:18; Admin Dose 1 EA; Start 08/12/18 at 02:00 Insulin Aspart (Novolog Insulin Pen) NOVOLOG *MILD* ALGORITHM WITH MEALS BEDTIME SC Last administered on 08/13/18at 17:28; Admin Dose 1 UNIT; Start 08/11/18 at 18:05 Miscellaneous Information 1 ea NOTE XX ; Start 08/11/18 at 17:30 Glucose (Glutose) 15 gm Q15M PRN PO DECREASED GLUCOSE; Start 08/11/18 at 17:30 Glucose (Glutose) 22.5 gm Q15M PRN PO DECREASED GLUCOSE; Start 08/11/18 at 17:30 Dextrose (D50w Syringe) 25 ml Q15M PRN IV DECREASED GLUCOSE; Start 08/11/18 at 17:30 Dextrose (D50w Syringe) 50 ml Q15M PRN IV DECREASED GLUCOSE; Start 08/11/18 at 17:30 Glucagon (Glucagen) 1 mg Q15M PRN IM DECREASED GLUCOSE; Start 08/11/18 at 17:30 Glucose (Glutose) 15 gm Q15M PRN BUCCAL DECREASED GLUCOSE; Start 08/11/18 at 17:30 Midodrine (Proamatine) 5 mg TID PO Last administered on 08/14/18at 12:37; Admin Dose 5 MG; Start 08/12/18 at 13:00 Epoetin Yonas-epbx (RETACRIT(esrd)) 10,000 unit MoWeFr@1700 SC Last administered on 08/13/18at 00:36; Admin Dose 10,000 UNIT; Start 08/12/18 at 17:00 Sodium Hypochlorite (Dakins Diluted ()) 1 applic DAILY TP ; Start 08/13/18 at 09:00 Vancomycin HCl 250 ml @ 125 mls/hr 1300 IVPB Last administered on 08/14/18at 12:37; Admin Dose 125 MLS/HR; Start 08/14/18 at 13:00; Stop 08/14/18 at 19:00 Albumin Human 100 ml @ 100 mls/hr DURING DIALYSIS PRN IV Dialysis; Start 08/14/18 at 10:00; Stop 08/15/18 at 23:00 FANNY RENEE MD Aug 14, 2018 14:32
[2018-08-14] MEDS ORDERED: BISACODYL (EC) 5 MG TAB PO ONE ×2 (20:07→20:30)
[2018-08-14] MEDS ORDERED: POLYETHYLENE GLYCOL 17 GM PACKET ONE (20:07)
[2018-08-14] MEDS ORDERED: POLYETHYLENE GLYCOL 17 GM PACKET PO ONE (20:30)
[2018-08-15] MEDS: ACCU-CHEK XX SCH (01:42)
[2018-08-15] MEDS: SOD CHLORIDE 0.9% 1,000 ML IV SCH ×2 (01:55→17:22)
[2018-08-15 02:00] VITALS: BP 149/78; PULSE 84; RESP 17
[2018-08-15] MEDS: HYDROCODONE/APAP (5/325) TAB PO PRN ×3 (04:00→20:32)
[2018-08-15] MEDS: PANTOPRAZOLE (EC) 40 MG TAB PO SCH (05:43)
[2018-08-15] MEDS: INSULIN ASPART [NOVOLOG] 3 ML PEN SC SCH ×4 (08:00→20:30)
[2018-08-15 08:27] VITALS: BP 121/60; PULSE 90; RESP 19
[2018-08-15] MEDS: MULTIVIT/CA CARB/B CMPLX/FA TAB PO SCH (08:57)
[2018-08-15] MEDS: SEVELAMER CARBONATE 0.8 GM PKT PO SCH ×3 (08:57→17:19)
[2018-08-15] MEDS: HEPARIN 5,000 UNIT/1 ML VIAL SC SCH ×2 (08:58→20:32)
[2018-08-15] MEDS: ASCORBIC ACID 500 MG TAB PO SCH (08:58)
[2018-08-15] MEDS: MIDODRINE 5 MG TAB PO SCH ×3 (08:58→20:32)
[2018-08-15] MEDS: CLOPIDOGREL 75 MG TAB PO SCH (08:58)
[2018-08-15] MEDS: DAKINS 0.0125%(1/40) 473 ML SOLUTION TP SCH (09:00)
--- NOTE | 2018-08-15 12:26 | PN ---
Date/Time of Note Date/Time of Note DATE: 08/15/18 TIME: 12:24 Assessment/Plan VTE Prophylaxis Risk score (from Nsg)>0 risk: 5 SCD applied (from Nsg): Yes Lines/Catheters IV Catheter Type (from Nrsg): Peripheral IV Urinary Cath still in place: No Assessment/Plan Assessment/Plan SUBJECTIVE: No acute overnight episodes OBJECTIVE: Vital signs-see below PHYSICAL EXAM: Constitutional: Adequately built,not in acute distress. HEENT: Head atraumatic and normocephalic. Eyes: Extraocular muscles intact. Anicteric sclerae. Pupils equal bilaterally, reactive to light. NECK: Supple without lymph node. CHEST: Clear and good breath sounds equally. No wheezing. No rhonchi. HEART: S1, S2. Regular rate and rhythm. ABDOMEN: Soft/non tender with no rebound tenderness. Bowel sounds were present. EXTREMITIES: Left 5th toe gangrene w/falling nail with surrounding heel/foot cellulitis. No focal defecit. NEUROLOGIC: Alert and oriented x3. No focal deficit. No sensory deficit. PSYCHOSOCIAL: No signs of depression. INTEGUMENTARY: No open wounds. ASSESSMENT AND PLAN:63-year-old male with diabetes, ESRD on hemodialysis, here with worsening left 5th toe necrtic gangrene w/heel ulceration causing severe sepsis. Gangrenous left foot DM ulcer with osteomyelitis -Appreciate podiatry review of case and plan is over debridement. Patient also seems at risk for left fifth toe amputation.. -Follow-up cultures. -Follow-up arterial studies ordered and vascular recommendations. -PICC line in anticipation for long-term IV antimicrobial. Severe sepsis with gram-positive bacteremia secondary to foot ulcer. -Treatment as above. Type 2 diabetes -Strict glycemic control. Appears to have adequate control on current insulin regimen which we will continue. End-stage renal disease -HD per nephro team. -Access: Left chest permacath Essential hypertension, now borderline hypotensive -Norvasc has been discontinued which I agree with. -Midodrine dose by nephrology to support blood pressure during dialysis sessio ns. Peripheral vascular disease -Continue antiplatelet Anemia of ESRD and chronic inflammation -H&H stable. Continue monitoring. Hyponatremia -Stable DVT prophylaxis: Heparin PUD prophylaxis: Protonix Disposition: Result Diagram: 08/15/18 0543 08/15/18 0543 Results 24hrs Laboratory Tests Test 08/14/18 17:02 08/14/18 20:32 08/15/18 05:43 08/15/18 08:01 Bedside Glucose 140 148 96 White Blood Count 18.9 #H Red Blood Count 2.77 L Hemoglobin 8.8 L Hematocrit 27.6 L Mean Corpuscular 99.6 Volume Mean Corpuscular 31.8 Hemoglobin Mean Corpuscular 31.9 L Hemoglobin Concent Red Cell 15.9 H Distribution Width Platelet Count 347 Mean Platelet Volume 8.9 Immature 2.600 H Granulocytes % Neutrophils % 82.7 H Lymphocytes % 6.7 L Monocytes % 5.6 Eosinophils % 2.0 Basophils % 0.4 Nucleated Red Blood 0.0 Cells % Immature 0.490 H Granulocytes # Neutrophils # 15.7 H Lymphocytes # 1.3 Monocytes # 1.1 H Eosinophils # 0.4 Basophils # 0.1 Nucleated Red Blood 0.0 Cells # Sodium Level 133 L Potassium Level 4.6 Chloride Level 98 Carbon Dioxide Level 24 Anion Gap 11 Blood Urea Nitrogen 46 #H Creatinine 6.74 #H Est Glomerular 8 L Filtrat Rate mL/min Glucose Level 102 Calcium Level 7.6 L Test 08/15/18 11:53 Bedside Glucose 136 Exam/Review of Systems Exam Vitals Vital Signs Date Temp Pulse Resp B/P (MAP) Pulse Ox O2 O2 Flow FiO2 Time Delivery Rate 08/15/18 98.1 90 19 121/60 95 08:27 (80) 08/14/18 Room Air 12:27 08/13/18 3.0 15:33 Intake and Output 08/14/18 08/14/18 08/15/18 1515:00 23:00 07:00 IntakeIntake Total 1450 ml 550 ml 1550 ml OutputOutput Total 2700 ml BalanceBalance -1250 ml 550 ml 1550 ml Results Results 24hrs Laboratory Tests Test 08/14/18 17:02 08/14/18 20:32 08/15/18 05:43 08/15/18 08:01 Bedside Glucose 140 148 96 White Blood Count 18.9 #H Red Blood Count 2.77 L Hemoglobin 8.8 L Hematocrit 27.6 L Mean Corpuscular 99.6 Volume Mean Corpuscular 31.8 Hemoglobin Mean Corpuscular 31.9 L Hemoglobin Concent Red Cell 15.9 H Distribution Width Platelet Count 347 Mean Platelet Volume 8.9 Immature 2.600 H Granulocytes % Neutrophils % 82.7 H Lymphocytes % 6.7 L Monocytes % 5.6 Eosinophils % 2.0 Basophils % 0.4 Nucleated Red Blood 0.0 Cells % Immature 0.490 H Granulocytes # Neutrophils # 15.7 H Lymphocytes # 1.3 Monocytes # 1.1 H Eosinophils # 0.4 Basophils # 0.1 Nucleated Red Blood 0.0 Cells # Sodium Level 133 L Potassium Level 4.6 Chloride Level 98 Carbon Dioxide Level 24 Anion Gap 11 Blood Urea Nitrogen 46 #H Creatinine 6.74 #H Est Glomerular 8 L Filtrat Rate mL/min Glucose Level 102 Calcium Level 7.6 L Test 08/15/18 11:53 Bedside Glucose 136 Medications Medication Current Medications Sodium Chloride 1,000 ml @ 100 mls/hr Q10H IV Last administered on 08/15/18 01:55; Admin Dose 100 MLS/HR; Start 08/11/18 at 01:38 IV Flush (NS 3 ml) 3 ml PER PROTOCOL IV ; Start 08/11/18 at 02:00 Ondansetron HCl (Zofran Inj) 4 mg Q6H PRN IV NAUSEA/VOMITING; Start 08/11/18 at 02:00 Acetaminophen (Tylenol Tab) 650 mg Q6H PRN PO .PAIN 1-3 OR TEMP Last administered on 08/13/18 19:11; Admin Dose 650 MG; Start 08/11/18 at 02:00 Acetaminophen/ Hydrocodone Bitart ([place] (5/325)) 1 tab Q6H PRN PO .PAIN 4-6 L ast administered on 08/15/18 11:31; Admin Dose 1 TAB; Start 08/11/18 at 02:00 Acetaminophen/ Hydrocodone Bitart ([place] (5/325)) 2 tab Q6H PRN PO .PAIN 7-10 Last administered on 08/15/18 04:00; Admin Dose 2 TAB; Start 08/11/18 at 02:00 Heparin Sodium (Porcine) (Heparin (5000 Units/1ml)) 5,000 unit Q12 SC Last administered on 08/15/18 08:58; Admin Dose 5,000 UNIT; Start 08/11/18 at 09:00 Albuterol/ Ipratropium (Duoneb) 3 ml Q2H RESP THERAPY PRN HHN SHORTNESS OF BREATH; Start 08/11/18 at 02:00 Ascorbic Acid (Vitamin C) 500 mg DAILY PO Last administered on 08/15/18 08:58; Admin Dose 500 MG; Start 08/11/18 at 09:00 Clopidogrel Bisulfate (plaVIX) 75 mg DAILY PO Last administered on 08/15/18 08:58; Admin Dose 75 MG; Start 08/11/18 at 09:00 Multivit/Ca Carb/ B Cmplx/FA/Prenat ([place]eny-Odalis) 1 tab DAILY PO Last administered on 08/15/18 08:57; Admin Dose 1 TAB; Start 08/11/18 at 09:00 Pantoprazole (Protonix Tab) 40 mg DAILY@06 PO Last administered on 08/15/18 05:43; Admin Dose 40 MG; Start 08/11/18 at 06:00 Sevelamer Carbonate (Renvela) 0.8 gm WITH MEALS PO Last administered on 11:29; Admin Dose 0.8 GM; Start 08/11/18 at 08:00 Vancomycin HCl (Vanco Iv Per Pharmacy) VANCOMYCIN PER PHARMACY PER PROTOCOL XX ; Start 08/11/18 at 02:00 Heparin Sodium (Porcine) (Heparin (1000 Units/ml)) 4,200 unit AFTER DIALYSIS CATHETER ; Start 08/11/18 at 16:30 Diagnostic Test (Pha) (Accu-Chek) 1 ea 02 XX Last administered on 08/13/18at 02:18; Admin Dose 1 EA; Start 08/12/18 at 02:00 Insulin Aspart (Novolog Insulin Pen) NOVOLOG *MILD* ALGORITHM WITH MEALS BEDTIME SC Last administered on 08/13/18at 17:28; Admin Dose 1 UNIT; Start 08/11/18 at 18:05 Miscellaneous Information 1 ea NOTE XX ; Start 08/11/18 at 17:30 Glucose (Glutose) 15 gm Q15M PRN PO DECREASED GLUCOSE; Start 08/11/18 at 17:30 Glucose (Glutose) 22.5 gm Q15M PRN PO DECREASED GLUCOSE; Start 08/11/18 at 17:30 Dextrose (D50w Syringe) 25 ml Q15M PRN IV DECREASED GLUCOSE; Start 08/11/18 at 17:30 Dextrose (D50w Syringe) 50 ml Q15M PRN IV DECREASED GLUCOSE; Start 08/11/18 at 17:30 Glucagon (Glucagen) 1 mg Q15M PRN IM DECREASED GLUCOSE; Start 08/11/18 at 17:30 Glucose (Glutose) 15 gm Q15M PRN BUCCAL DECREASED GLUCOSE; Start 08/11/18 at 17:30 Midodrine (Proamatine) 5 mg TID PO Last administered on 08/15/18at 08:58; Admin Dose 5 MG; Start 08/12/18 at 13:00 Epoetin Yonas-epbx (RETACRIT(esrd)) 10,000 unit MoWeFr@1700 SC Last administered on 08/13/18at 00:36; Admin Dose 10,000 UNIT; Start 08/12/18 at 17:00 Sodium Hypochlorite (Dakins Diluted ()) 1 applic DAILY TP ; Start 08/13/18 at 09:00 Albumin Human 100 ml @ 100 mls/hr DURING DIALYSIS PRN IV Dialysis; Start 08/14/18 at 10:00; Stop 08/15/18 at 23:00 NILSON DEXTER Aug 15, 2018 12:25
--- NOTE | 2018-08-15 12:33 | DS ---
Date/Time of Note Date/Time of Note DATE: 08/15/18 TIME: 12:33 Discharge Summary Admission/Discharge Info Admit Date/Time Aug 10, 2018 at 23:19 Discharge Date/Time Discharge Diagnosis 63-year-old male with diabetes, ESRD on hemodialysis, here with worsening left 5th toe necrtic gangrene w/heel ulceration causing severe sepsis. 1. Gangrenous left foot DM ulcer with osteomyelitis 2. L foot abscess 3. Left foot charcot 4. DM2 with peripheral neuropathy 5. ESRD on HD 6. PAD 7. Severe sepsis with MRSA bacteremia secondary to foot ulcer. 8. Essential hypertension, now borderline hypotensive on midodrine -Midodrine dose by nephrology to support blood pressure during dialysis sessions. 9. Anemia of ESRD and chronic inflammation . Patient Condition: Stable Consults ID: jessica Zavala MD Nephrology: Sy Terrell MD Podiatry : Myron jones . Procedures Operation/Procedure Performed Left foot excisional debridement Left foot amputation of 5th digit Application of antibiotic spacer . Hospital Course This 63-year-old male with comorbidities as summarized above who presented in sepsis, was found to have osteomyelitis. He underwent debridement and excision of toe and at this time based cultures is being discharged home to complete antibiotic therapy based on ID recommendations. . Home Meds Active Scripts Lactobacillus Rhamnosus* (Culturelle*) 1 Each Cap.sprink, 1 CAP PO BID for 30 Days, #60 CAP 1 Refill Prov:NILSON DEXTER 08/15/18 Vancomycin/0.9 % Sod Chloride (Vancomycin 1 G/200Ml-0.9% NaCl) 1 Gm/200 Ml Froz.piggy, 1 GM IV WITH DIALYSIS for 38 Days, #13 DOSE with hemodialysis Prov:NILSON DEXTER 08/15/18 Sodium Hypochlorite (Di-Dak-Georgette) 473 Ml Solution, 1 APPLIC TP DAILY, #1 BOTTLE 2 Refills Prov:NILSON DEXTER. 08/15/18 Midodrine* (Midodrine*) 5 Mg Tablet, 5 MG PO TID, #90 TAB Prov:NILSON DEXTER. 08/15/18 Pantoprazole* (Pantoprazole*) 40 Mg Tablet., 40 MG PO DAILY@06 for 30 Days, #30 TAB Prov:TOÑO RODRIGUEZ MD 09/15/17 Reported Medications Diphenhydramine Hcl* (Diphenhydramine Hcl*) 25 Mg Capsule, 25 MG PO Q6 for itching, insomnia , CAP 08/12/18 Fludrocortisone* (Fludrocortisone*) 0.1 Mg Tablet, 0.1 MG PO DAILY, TAB 08/12/18 Hydrocodone/Acetaminophen ([place] 10-325 Tablet) 1 Each Tablet, 1 EACH PO, TAB 08/11/18 Ascorbic Acid* (Vitamin C*) 500 Mg Capsule.sa, 500 MG PO DAILY, CAP 08/11/18 Clopidogrel Bisulfate (Clopidogrel) 75 Mg Tablet, 75 MG PO DAILY, #30 TAB 09/13/17 Multivit/Ca Carb/B Cmplx/Fa* (Yeny-Odalis*) 1 Tab Tab, 1 TAB PO DAILY, TAB 09/13/17 Sevelamer Carbonate* (Renvela*) 800 Mg Tablet, 0.8 GM PO WITH MEALS, TAB 07/27/17 Discontinued Reported Medications Diphenhydramine Hcl* (Diphenhydramine Hcl*) 25 Mg Capsule, 25 MG PO Q6 PRN for ITCHING, CAP 08/12/18 Nifedipine* (Nifedipine ER*) 90 Mg Tablet.er, 90 MG PO DAILY, TAB 09/13/17 Pantoprazole* (Pantoprazole*) 40 Mg Tablet.dr, 40 MG PO DAILY, TAB 08/11/18 Valsartan* (Diovan*) 160 Mg Tablet, 160 MG PO DAILY, TAB 09/13/17 Carvedilol* (Carvedilol*) 25 Mg Tablet, 25 MG PO BID, #60 TAB 09/13/17 Minoxidil* (Lonitin*) 2.5 Mg Tab, 2.5 MG PO BID, TAB 09/13/17 Nitroglycerin* (Nitrostat*) 0.4 Mg Tab.subl, 0.4 MG SL Q5MIN PRN for CHEST PAIN, BOTTLE 09/13/17 Clonidine Hcl* (Clonidine Hcl*) 0.1 Mg Tab, 0.1 MG PO BID PRN for ELEVATED BLOOD PRESSURE, TAB 09/13/17 Follow-up Plan The patient is recommended to follow up with infectious diseases in the next 1 to 2 weeks. The patient will also follow up with podiatry as well in next 1 to 2 weeks. The patient will need weekly CBC and BMP that will be monitored by Infectious Disease. The patient is also going to have home health therapy for wound care and dressing on the continued management. Primary Care Provider Care Physician No Primary Time spent on discharge: > 30 minutes Pending Labs Laboratory Tests Test 08/14/18 17:02 08/14/18 20:32 08/15/18 05:43 08/15/18 08:01 Bedside 140 148 96 Glucose mg/dL (70-220) mg/dL (70-220) mg/dL (70-220) White Blood 18.9 Count 10^3/ul (4.8-1 0.8) Red Blood 2.77 Count 10^6/ul (4.70- 6.10) Hemoglobin 8.8 g/dl (14.0-18. 0) Hematocrit 27.6 % (42.0-52.0) Mean 99.6 Corpuscular fl (82.0-101.0 Volume ) Mean 31.8 Corpuscular pg (29.0-33.0) Hemoglobin Mean 31.9 Corpuscular g/dl (32.0-37. Hemoglobin Conc 0) ent Red Cell 15.9 Distribution % (11.5-14.5) Width Platelet Count 347 10^3/UL (140-4 15) Mean Platelet 8.9 Volume fl (7.4-10.4) Immature 2.600 Granulocytes % % (0.001-0.429 ) Neutrophils % 82.7 % (39.0-77.0) Lymphocytes % 6.7 % (15.0-51.0) Monocytes % 5.6 % (0.0-11.0) Eosinophils % 2.0 % (0.0-7.0) Basophils % 0.4 % (0.0-2.0) Nucleated Red 0.0 Blood Cells % /100WBC (0.0-0 .0) Immature 0.490 Granulocytes # 10^3/ul (0.0-0 .031) Neutrophils # 15.7 10^3/ul (1.6-7 .5) Lymphocytes # 1.3 10^3/ul (0.8-2 .9) Monocytes # 1.1 10^3/ul (0.3-0 .9) Eosinophils # 0.4 10^3/ul (0.0-0 .5) Basophils # 0.1 10^3/ul (0.0-0 .1) Nucleated Red 0.0 Blood Cells # 10^3/ul (0.0-0 .0) Sodium Level 133 mmol/L (135-14 4) Potassium 4.6 Level mmol/L (3.5-5. 1) Chloride Level 98 mmol/L (97-110 ) Carbon Dioxide 24 Level mmol/L (21-31) Anion Gap 11 (5-13) Blood Urea 46 Nitrogen mg/dl (7-20) Creatinine 6.74 mg/dl (0.61-1. 24) Est Glomerular 8 mL/min (>60) Filtrat Rate mL/min Glucose Level 102 mg/dl (70-220) Calcium Level 7.6 mg/dl (8.4-10. 2) Test 08/15/18 11:53 Bedside 136 Glucose mg/dL (70-220) NILSON DEXTER Aug 15, 2018 12:33
[2018-08-15] MEDS ORDERED: Vancomycin Iv Per Pharmacy XX (12:43)
[2018-08-15] MEDS ORDERED: MIDO5TAB PO (12:43)
[2018-08-15] MEDS ORDERED: SODI473S5 TP (12:43)
--- NOTE | 2018-08-15 12:48 | PDOCDIS ---
Discharge Instructions CONDITION [id number] Patient Condition: [id number] Stable HOME CARE INSTRUCTIONS: [id number] Diet Instructions: [id number] Low Fat /Cholesterol ACTIVITY: [id number] Activity Restrictions: [id number] Slowly Increase Activity Rest between Activity No Weight Bearing (on R foot till cleared by podiatry) FOLLOW UP/APPOINTMENTS Follow-up Plan Please followup with Dr Perez for Podiatry Specialty: Podiatry Comments: Office Address: [address] [place] [address] [address] [place] [address] Office Office Also f/u with Dr. Zavala for infectious disease and antibiotic management Name, Degree : Olivia Zavala MD Specialty : Infectious Disease Office Address : [facility] [address] [place] [address] [address] [place] [address] Office Office NILSON DEXTER Aug 15, 2018 12:48
[2018-08-15 15:01] VITALS: BP 144/71; PULSE 91; RESP 18
[2018-08-15] MEDS ORDERED: VANC1FRO2 IV (15:18)
[2018-08-15] MEDS ORDERED: LACT1CAP57 PO (15:22)
[2018-08-15] MEDS: EPOETIN ALFA-EPBX (ESRD) 10,000 UNIT/ML VIAL SC SCH (17:23)
--- NOTE | 2018-08-15 18:52 | CONS ---
Assessment/Plan Assessment/Plan Hospital Course (Demo Recall) assessment/impression - sepsis due to diabetic ulcer, infection and gangrene of L 5th toe, and bacteremia - bacteremia due to MRSA related to wound infection - diabetic ulcer, infection and gangrene of L 5th toe due to MRSA - s/p L foot excisional debridement, L foot amputation of 5th digit and application of antibiotic spacer on 08/13/2018 - OM of L 5th distal phalanx (based on XR), no OM in the visualized portions of the distal L 5th phalanx, possibly early OM of L 5th metatarsal and base of L 5th proximal phalanx, OM in the head of L 2nd metatarsal; probably residual OM of L heel, tendonitis (based on MRI) - Charcot's deformity of L foot - L shoulder pain, XR on 08/11/2018 showed DJD - h/o gangrene of b/l heel - h/o infection of the gangrenous wound and OM of L heel s/p excisional debridement of necrotic skin, subcutaneous tissue, ligament and muscle of L foot, Bx of L calcaneus on 09/30/2017. The culture of the biopsied bone did not grow bacteria while the culture of the heel wound grew nutritionally deficient streptococci. Pathology exam showed acute and chronic osteomyelitis of the biopsied bone - PVD - s/p angioplasty of LLE in 2018 - T2DM - Hgb A1c 6.2% - diabetic neuropathy of b/l feet and ankle - ESRD on HD via permacath on L chest recommendations - please order transthoracic echo to r/o endocarditis - we recommend renally dosed IV vancomycin (08/11/2018-) x 6 weeks. suggested end date: 09/22/2018 - please order weekly CBC and BMP while Pt's on IV antibiotic - contact isolation for MRSA management d/w patient, Dr. Gan Consultation Date/Type/Reason Admit Date/Time Aug 10, 2018 at 23:19 Initial Consult Date 08/11/18 Type of Consult ID Reason for Consultation bacteremia, recurrent OM Requesting Provider: CIARA PINEDA MD Date/Time of Note DATE: 08/15/18 TIME: 18:48 24 HR Interval Summary Constitutional: no complaints Detailed Summary Eyes: no complaints ENT: no complaints Respiratory: no complaints Cardiovascular: no complaints Gastrointestinal: no complaints Genitourinary: other (on HD) Musculoskeletal: bone/joint pain (L shoulder), restricted range of motion (LUE), other (denies pain of LLE) Skin: no complaints Neurologic: no complaints Exam/Review of Systems Exam Vitals Vital Signs Date Temp Pulse Resp B/P (MAP) Pulse Ox O2 O2 Flow FiO2 Time Delivery Rate 08/15/18 98.1 91 18 144/71 94 15:01 (95) 08/14/18 Room Air 12:27 08/13/18 3.0 15:33 Intake and Output 08/14/18 08/14/18 08/15/18 1515:00 23:00 07:00 IntakeIntake Total 1450 ml 550 ml 1550 ml OutputOutput Total 2700 ml BalanceBalance -1250 ml 550 ml 1550 ml Constitutional: alert, oriented Psych: no complaints, nl mood/affect Head: normocephalic, atraumatic Eyes: nl conjunctiva, nl lids, nl sclera ENMT: nl external ears & nose, nl nasal mucosa & septum, mucosa pink and moist Neck: other (not swollen) Respiratory: other (normal resp effort) Cardiovascular: No edema Gastrointestinal: soft; No distended Musculoskeletal: other (LLE is completely wrapped) Neurological: COMMUNICATIONS PROGRAM MANAGER II-XII intact, nl mental status, nl speech Skin: nl turgor; No rash or lesions Results Result Diagram: 08/15/1843 08/15/1843 Results 24hrs Laboratory Tests Test 08/14/18 20:32 08/15/18 05:43 08/15/18 08:01 08/15/18 11:53 Bedside Glucose 148 96 136 White Blood Count 18.9 #H Red Blood Count 2.77 L Hemoglobin 8.8 L Hematocrit 27.6 L Mean Corpuscular 99.6 Volume Mean Corpuscular 31.8 Hemoglobin Mean Corpuscular 31.9 L Hemoglobin Concent Red Cell 15.9 H Distribution Width Platelet Count 347 Mean Platelet Volume 8.9 Immature 2.600 H Granulocytes % Neutrophils % 82.7 H Lymphocytes % 6.7 L Monocytes % 5.6 Eosinophils % 2.0 Basophils % 0.4 Nucleated Red Blood 0.0 Cells % Immature 0.490 H Granulocytes # Neutrophils # 15.7 H Lymphocytes # 1.3 Monocytes # 1.1 H Eosinophils # 0.4 Basophils # 0.1 Nucleated Red Blood 0.0 Cells # Sodium Level 133 L Potassium Level 4.6 Chloride Level 98 Carbon Dioxide Level 24 Anion Gap 11 Blood Urea Nitrogen 46 #H Creatinine 6.74 #H Est Glomerular 8 L Filtrat Rate mL/min Glucose Level 102 Calcium Level 7.6 L Test 08/15/18 17:16 Bedside Glucose 128 Medications Medication Current Medications Sodium Chloride 1,000 ml @ 100 mls/hr Q10H IV Last administered on 08/15/18 17:22; Admin Dose 100 MLS/HR; Start 08/11/18 at 01:38 IV Flush (NS 3 ml) 3 ml PER PROTOCOL IV ; Start 08/11/18 at 02:00 Ondansetron HCl (Zofran Inj) 4 mg Q6H PRN IV NAUSEA/VOMITING; Start 08/11/18 at 02:00 Acetaminophen (Tylenol Tab) 650 mg Q6H PRN PO .PAIN 1-3 OR TEMP Last administered on 08/13/18 19:11; Admin Dose 650 MG; Start 08/11/18 at 02:00 Acetaminophen/ Hydrocodone Bitart ([place] (5/325)) 1 tab Q6H PRN PO .PAIN 4-6 Last administered on 08/15/18 11:31; Admin Dose 1 TAB; Start 08/11/18 at 02:00 Acetaminophen/ Hydrocodone Bitart ([place] (5/325)) 2 tab Q6H PRN PO .PAIN 7-10 Last administered on 08/15/18 04:00; Admin Dose 2 TAB; Start 08/11/18 at 02:00 Heparin Sodium (Porcine) (Heparin (5000 Units/1ml)) 5,000 unit Q12 SC Last administered on 08/15/18 08:58; Admin Dose 5,000 UNIT; Start 08/11/18 at 09:00 Albuterol/ Ipratropium (Duoneb) 3 ml Q2H RESP THERAPY PRN HHN SHORTNESS OF BREATH; Start 08/11/18 at 02:00 Ascorbic Acid (Vitamin C) 500 mg DAILY PO Last administered on 08/15/18 08:58; Admin Dose 500 MG; Start 08/11/18 at 09:00 Clopidogrel Bisulfate (plaVIX) 75 mg DAILY PO Last administered on 08/15/18 08:58; Admin Dose 75 MG; Start 08/11/18 at 09:00 Multivit/Ca Carb/ B Cmplx/FA/Prenat (Yeny-Odalis) 1 tab DAILY PO Last administered on 08/15/18at 08:57; Admin Dose 1 TAB; Start 08/11/18 at 09:00 Pantoprazole (Protonix Tab) 40 mg DAILY@06 PO Last administered on 08/15/18at 05:43; Admin Dose 40 MG; Start 08/11/18 at 06:00 Sevelamer Carbonate (Renvela) 0.8 gm WITH MEALS PO Last administered on 08/15/18at 17:19; Admin Dose 0.8 GM; Start 08/11/18 at 08:00 Vancomycin HCl (Vanco Iv Per Pharmacy) VANCOMYCIN PER PHARMACY PER PROTOCOL XX ; Start 08/11/18 at 02:00 Heparin Sodium (Porcine) (Heparin (1000 Units/ml)) 4,200 unit AFTER DIALYSIS CATHETER ; Start 08/11/18 at 16:30 Diagnostic Test (Pha) (Accu-Chek) 1 ea 02 XX Last administered on 08/13/18at 02:18; Admin Dose 1 EA; Start 08/12/18 at 02:00 Insulin Aspart (Novolog Insulin Pen) NOVOLOG *MILD* ALGORITHM WITH MEALS BEDTIME SC Last administered on 08/13/18at 17:28; Admin Dose 1 UNIT; Start 08/11/18 at 18:05 Miscellaneous Information 1 ea NOTE XX ; Start 08/11/18 at 17:30 Glucose (Glutose) 15 gm Q15M PRN PO DECREASED GLUCOSE; Start 08/11/18 at 17:30 Glucose (Glutose) 22.5 gm Q15M PRN PO DECREASED GLUCOSE; Start 08/11/18 at 17:30 Dextrose (D50w Syringe) 25 ml Q15M PRN IV DECREASED GLUCOSE; Start 08/11/18 at 17:30 Dextrose (D50w Syringe) 50 ml Q15M PRN IV DECREASED GLUCOSE; Start 08/11/18 at 17:30 Glucagon (Glucagen) 1 mg Q15M PRN IM DECREASED GLUCOSE; Start 08/11/18 at 17:30 Glucose (Glutose) 15 gm Q15M PRN BUCCAL DECREASED GLUCOSE; Start 08/11/18 at 17:30 Midodrine (Proamatine) 5 mg TID PO Last administered on 08/15/18at 12:30; Admin Dose 5 MG; Start 08/12/18 at 13:00 Epoetin Yonas-epbx (RETACRIT(esrd)) 10,000 unit MoWeFr@1700 SC Last administered on 08/15/18at 17:23; Admin Dose 10,000 UNIT; Start 08/12/18 at 17:00 Sodium Hypochlorite (Dakins Diluted ()) 1 applic DAILY TP ; Start 08/13/18 at 09:00 Albumin Human 100 ml @ 100 mls/hr DURING DIALYSIS PRN IV Dialysis; Start 08/14/18 at 10:00; Stop 08/15/18 at 23:00 JUAN J LIU M.D. Aug 15, 2018 18:52
--- NOTE | 2018-08-15 19:38 | CONS ---
Assessment/Plan Assessment/Plan Assessment/Plan (Daily) Left foot diabetic ulcer - s/p excisional debridement L foot abscess - s/p excisional debridement Wet Gangrene left foot - s/p left 5th digit amputation Osteomyelitis Left foot charcot DM2 with peripheral neuropathy ESRD on HD PAD Plan Patient wound cultures showing MRSA appreciate ID input for antibiotic recommendations. Patient tolerated procedure. Posterior splint applied to the left lower extremity. Patient will need to be non-weight bearing to left lower extremity. Appreciate physical therapy recommendations. Patient would benefit from CAM boot if not tolerated posterior splint. Consultation Date/Type/Reason Admit Date/Time Aug 10, 2018 at 23:19 Initial Consult Date 08/11/18 Requesting Provider: CIARA PINEDA MD Date/Time of Note DATE: 08/15/18 TIME: 19:38 24 HR Interval Summary Free Text/Dictation No acute events overnight Exam/Review of Systems Exam Vitals Vital Signs Date Temp Pulse Resp B/P (MAP) Pulse Ox O2 O2 Flow FiO2 Time Delivery Rate 08/15/18 98.1 91 18 144/71 94 15:01 (95) 08/14/18 Room Air 12:27 08/13/18 3.0 15:33 Intake and Output 08/14/18 08/14/18 08/15/18 1515:00 23:00 07:00 IntakeIntake Total 1450 ml 550 ml 1550 ml OutputOutput Total 2700 ml BalanceBalance -1250 ml 550 ml 1550 ml Exam Dressings clean dry and intact No proximal streaking no strikethrough drainage no foul odor. Results Result Diagram: 08/15/18 0543 08/15/18 0543 Results 24hrs Laboratory Tests Test 08/14/18 20:32 08/15/18 05:43 08/15/18 08:01 08/15/18 11:53 Bedside Glucose 148 96 136 White Blood Count 18.9 #H Red Blood Count 2.77 L Hemoglobin 8.8 L Hematocrit 27.6 L Mean Corpuscular 99.6 Volume Mean Corpuscular 31.8 Hemoglobin Mean Corpuscular 31.9 L Hemoglobin Concent Red Cell 15.9 H Distribution Width Platelet Count 347 Mean Platelet Volume 8.9 Immature 2.600 H Granulocytes % Neutrophils % 82.7 H Lymphocytes % 6.7 L Monocytes % 5.6 Eosinophils % 2.0 Basophils % 0.4 Nucleated Red Blood 0.0 Cells % Immature 0.490 H Granulocytes # Neutrophils # 15.7 H Lymphocytes # 1.3 Monocytes # 1.1 H Eosinophils # 0.4 Basophils # 0.1 Nucleated Red Blood 0.0 Cells # Sodium Level 133 L Potassium Level 4.6 Chloride Level 98 Carbon Dioxide Level 24 Anion Gap 11 Blood Urea Nitrogen 46 #H Creatinine 6.74 #H Est Glomerular 8 L Filtrat Rate mL/min Glucose Level 102 Calcium Level 7.6 L Test 08/15/18 17:16 Bedside Glucose 128 Medications Medication Current Medications Sodium Chloride 1,000 ml @ 100 mls/hr Q10H IV Last administered on 08/15/18 17:22; Admin Dose 100 MLS/HR; Start 08/11/18 at 01:38 IV Flush (NS 3 ml) 3 ml PER PROTOCOL IV ; Start 08/11/18 at 02:00 Ondansetron HCl (Zofran Inj) 4 mg Q6H PRN IV NAUSEA/VOMITING; Start 08/11/18 at 02:00 Acetaminophen (Tylenol Tab) 650 mg Q6H PRN PO .PAIN 1-3 OR TEMP Last adm inistered on 08/13/18 19:11; Admin Dose 650 MG; Start 08/11/18 at 02:00 Acetaminophen/ Hydrocodone Bitart ([place] (5/325)) 1 tab Q6H PRN PO .PAIN 4-6 Last administered on 08/15/18 11:31; Admin Dose 1 TAB; Start 08/11/18 at 02:00 Acetaminophen/ Hydrocodone Bitart ([place] (5/325)) 2 tab Q6H PRN PO .PAIN 7-10 Last administered on 08/15/18 04:00; Admin Dose 2 TAB; Start 08/11/18 at 02:00 Heparin Sodium (Porcine) (Heparin (5000 Units/1ml)) 5,000 unit Q12 SC Last administered on 08/15/18 08:58; Admin Dose 5,000 UNIT; Start 08/11/18 at 09:00 Albuterol/ Ipratropium (Duoneb) 3 ml Q2H RESP THERAPY PRN HHN SHORTNESS OF BREATH; Start 08/11/18 at 02:00 Ascorbic Acid (Vitamin C) 500 mg DAILY PO Last administered on 4/29/19at 08:58; Admin Dose 500 MG; Start 08/11/18 at 09:00 Clopidogrel Bisulfate (plaVIX) 75 mg DAILY PO Last administered on 08/15/18at 08:58; Admin Dose 75 MG; Start 08/11/18 at 09:00 Multivit/Ca Carb/ B Cmplx/FA/Prenat ([place]eny-Odalis) 1 tab DAILY PO Last administered on 08/15/18at 08:57; Admin Dose 1 TAB; Start 08/11/18 at 09:00 Pantoprazole (Protonix Tab) 40 mg DAILY@06 PO Last administered on 08/15/18at 05:43; Admin Dose 40 MG; Start 08/11/18 at 06:00 Sevelamer Carbonate (Renvela) 0.8 gm WITH MEALS PO Last administered on 08/15/18at 17:19; Admin Dose 0.8 GM; Start 08/11/18 at 08:00 Vancomycin HCl (Vanco Iv Per Pharmacy) VANCOMYCIN PER PHARMACY PER PROTOCOL XX ; Start 08/11/18 at 02:00 Heparin Sodium (Porcine) (Heparin (1000 Units/ml)) 4,200 unit AFTER DIALYSIS CATHETER ; Start 08/11/18 at 16:30 Diagnostic Test (Pha) (Accu-Chek) 1 ea 02 XX Last administered on 08/13/18at 02:18; Admin Dose 1 EA; Start 08/12/18 at 02:00 Insulin Aspart (Novolog Insulin Pen) NOVOLOG *MILD* ALGORITHM WITH MEALS BEDTIME SC Last administered on 08/13/18at 17:28; Admin Dose 1 UNIT; Start 08/11/18 at 18:05 Miscellaneous Information 1 ea NOTE XX ; Start 08/11/18 at 17:30 Glucose (Glutose) 15 gm Q15M PRN PO DECREASED GLUCOSE; Start 08/11/18 at 17:30 Glucose (Glutose) 22.5 gm Q15M PRN PO DECREASED GLUCOSE; Start 08/11/18 at 17:30 Dextrose (D50w Syringe) 25 ml Q15M PRN IV DECREASED GLUCOSE; Start 08/11/18 at 17:30 Dextrose (D50w Syringe) 50 ml Q15M PRN IV DECREASED GLUCOSE; Start 08/11/18 at 17:30 Glucagon (Glucagen) 1 mg Q15M PRN IM DECREASED GLUCOSE; Start 4/25/19 at 17:30 Glucose (Glutose) 15 gm Q15M PRN BUCCAL DECREASED GLUCOSE; Start 08/11/18 at 17:30 Midodrine (Proamatine) 5 mg TID PO Last administered on 08/15/18at 12:30; Admin Dose 5 MG; Start 08/12/18 at 13:00 Epoetin Yonas-epbx (RETACRIT(esrd)) 10,000 unit MoWeFr@1700 SC Last administered on 08/15/18at 17:23; Admin Dose 10,000 UNIT; Start 08/12/18 at 17:00 Sodium Hypochlorite (Dakins Diluted ()) 1 applic DAILY TP ; Start 08/13/18 at 09:00 Albumin Human 100 ml @ 100 mls/hr DURING DIALYSIS PRN IV Dialysis; Start 08/14/18 at 10:00; Stop 08/15/18 at 23:[address] DPM Aug 15, 2018 19:38
[2018-08-15 20:27] VITALS: BP 155/76; PULSE 94; RESP 18
--- NOTE | 2018-08-15 20:57 | CONS ---
Assessment/Plan Assessment/Plan Hospital Course (Demo Recall) 1. End-stage renal disease on maintenance hemodialysis. He usually dialyzes Wednesday, Wednesday, Wednesday . He had dialysis yesterday and I will order dialysis for tomorrow. 2. 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 3. Severe peripheral artery disease. 4. Anemia of chronic kidney disease. I have ordered iron studies and will start Epogen. 5. Type 2 diabetes mellitus. 6. Postural hypotension . He is on midodrine , his blood pressure is acceptable now. I would not treat him with antihypertensive medication. Consultation Date/Type/Reason Admit Date/Time Aug 10, 2018 at 23:19 Initial Consult Date 08/11/18 Type of Consult Nephrology Requesting Provider: CIARA PINEDA MD Date/Time of Note DATE: 08/15/18 TIME: 20:51 24 HR Interval Summary Free Text/Dictation Patient is awake and alert. He has no new complaints. Constitutional: no complaints, improved Exam/Review of Systems Exam Vitals Vital Signs Date Temp Pulse Resp B/P (MAP) Pulse Ox O2 O2 Flow FiO2 Time Delivery Rate 08/15/18 99.6 94 18 155/76 98 20:27 (102) 08/14/18 Room Air 12:27 08/13/18 3.0 15:33 Intake and Output 08/14/18 08/14/18 08/15/18 1515:00 23:00 07:00 IntakeIntake Total 1450 ml 550 ml 1550 ml OutputOutput Total 2700 ml BalanceBalance -1250 ml 550 ml 1550 ml Exam He has a large splint and bandage on his left leg. His right leg is with trace edema and stasis changes. Constitutional: alert, oriented, frail Respiratory: clear to auscultation Cardiovascular: regular rate and rhythm Gastrointestinal: soft, non-tender Results Result Diagram: 08/15/18 0543 08/15/18 0543 Results 24hrs Laboratory Tests Test 08/15/18 05:43 08/15/18 08:01 08/15/18 11:53 08/15/18 17:16 White Blood Count 18.9 #H Red Blood Count 2.77 L Hemoglobin 8.8 L Hematocrit 27.6 L Mean Corpuscular 99.6 Volume Mean Corpuscular 31.8 Hemoglobin Mean Corpuscular 31.9 L Hemoglobin Concent Red Cell 15.9 H Distribution Width Platelet Count 347 Mean Platelet Volume 8.9 Immature 2.600 H Granulocytes % Neutrophils % 82.7 H Lymphocytes % 6.7 L Monocytes % 5.6 Eosinophils % 2.0 Basophils % 0.4 Nucleated Red Blood 0.0 Cells % Immature 0.490 H Granulocytes # Neutrophils # 15.7 H Lymphocytes # 1.3 Monocytes # 1.1 H Eosinophils # 0.4 Basophils # 0.1 Nucleated Red Blood 0.0 Cells # Sodium Level 133 L Potassium Level 4.6 Chloride Level 98 Carbon Dioxide Level 24 Anion Gap 11 Blood Urea Nitrogen 46 #H Creatinine 6.74 #H Est Glomerular 8 L Filtrat Rate mL/min Glucose Level 102 Calcium Level 7.6 L Bedside Glucose 96 136 128 Test 08/15/18 20:30 Bedside Glucose 115 Medications Medication Current Medications Sodium Chloride 1,000 ml @ 100 mls/hr Q10H IV Last administered on 08/15/18 17:22; Admin Dose 100 MLS/HR; Start 08/11/18 at 01:38 IV Flush (NS 3 ml) 3 ml PER PROTOCOL IV ; Start 08/11/18 at 02:00 Ondansetron HCl (Zofran Inj) 4 mg Q6H PRN IV NAUSEA/VOMITING; Start 08/11/18 at 02:00 Acetaminophen (Tylenol Tab) 650 mg Q6H PRN PO .PAIN 1-3 OR TEMP Last administered on 08/13/18 19:11; Admin Dose 650 MG; Start 08/11/18 at 02:00 Acetaminophen/ Hydrocodone Bitart ([place] (5/325)) 1 tab Q6H PRN PO .PAIN 4-6 Last administered on 08/15/18 11:31; Admin Dose 1 TAB; Start 08/11/18 at 02:00 Acetaminophen/ Hydrocodone Bitart ([place] (5/325)) 2 tab Q6H PRN PO .PAIN 7-10 Last administered on 08/15/18 20:32; Admin Dose 2 TAB; Start 08/11/18 at 02:00 Heparin Sodium (Porcine) (Heparin (5000 Units/1ml)) 5,000 unit Q12 SC Last administered on 08/15/18 20:32; Admin Dose 5,000 UNIT; Start 08/11/18 at 09:00 Albuterol/ Ipratropium (Duoneb) 3 ml Q2H RESP THERAPY PRN HHN SHORTNESS OF BREATH; Start 08/11/18 at 02:00 Ascorbic Acid (Vitamin C) 500 mg DAILY PO Last administered on 08/15/18at 08:58; Admin Dose 500 MG; Start 08/11/18 at 09:00 Clopidogrel Bisulfate (plaVIX) 75 mg DAILY PO Last administered on 08/15/18at 08:58; Admin Dose 75 MG; Start 08/11/18 at 09:00 Multivit/Ca Carb/ B Cmplx/FA/Prenat (Yeny-Odalis) 1 tab DAILY PO Last administered on 08/15/18 08:57; Admin Dose 1 TAB; Start 08/11/18 at 09:00 Pantoprazole (Protonix Tab) 40 mg DAILY@06 PO Last administered on 08/15/18at 05:43; Admin Dose 40 MG; Start 08/11/18 at 06:00 Sevelamer Carbonate (Renvela) 0.8 gm WITH MEALS PO Last administered on 08/15/18at 17:19; Admin Dose 0.8 GM; Start 08/11/18 at 08:00 Vancomycin HCl (Vanco Iv Per Pharmacy) VANCOMYCIN PER PHARMACY PER PROTOCOL XX ; Start 08/11/18 at 02:00 Heparin Sodium (Porcine) (Heparin (1000 Units/ml)) 4,200 unit AFTER DIALYSIS CATHETER ; Start 08/11/18 at 16:30 Diagnostic Test (Pha) (Accu-Chek) 1 ea 02 XX Last administered on 08/13/18at 02:18; Admin Dose 1 EA; Start 08/12/18 at 02:00 Insulin Aspart (Novolog Insulin Pen) NOVOLOG *MILD* ALGORITHM WITH MEALS BEDTIME SC Last administered on 08/13/18at 17:28; Admin Dose 1 UNIT; Start 08/11/18 at 18:05 Miscellaneous Information 1 ea NOTE XX ; Start 08/11/18 at 17:30 Glucose (Glutose) 15 gm Q15M PRN PO DECREASED GLUCOSE; Start 08/11/18 at 17:30 Glucose (Glutose) 22.5 gm Q15M PRN PO DECREASED GLUCOSE; Start 08/11/18 at 17:30 Dextrose (D50w Syringe) 25 ml Q15M PRN IV DECREASED GLUCOSE; Start 08/11/18 at 17:30 Dextrose (D50w Syringe) 50 ml Q15M PRN IV DECREASED GLUCOSE; Start 08/11/18 at 17:30 Glucagon (Glucagen) 1 mg Q15M PRN IM DECREASED GLUCOSE; Start 08/11/18 at 17:30 Glucose (Glutose) 15 gm Q15M PRN BUCCAL DECREASED GLUCOSE; Start 08/11/18 at 17:30 Midodrine (Proamatine) 5 mg TID PO Last administered on 08/15/18at 20:32; Admin Dose 5 MG; Start 08/12/18 at 13:00 Epoetin Yonas-epbx (RETACRIT(esrd)) 10,000 unit MoWeFr@1700 SC Last administered on 08/15/18at 17:23; Admin Dose 10,000 UNIT; Start 08/12/18 at 17:00 Sodium Hypochlorite (Dakins Diluted (1/40)) 1 applic DAILY TP ; Start 08/13/18 at 09:00 Albumin Human 100 ml @ 100 mls/hr DURING DIALYSIS PRN IV Dialysis; Start 08/14/18 at 10:00; Stop 08/15/18 at 23:00 MARY THRASHER MD Aug 15, 2018 20:57
[2018-08-16] VITALS (17 sets, daily range): BP systolic 130–165; BP diastolic 69–95; PULSE 81–104; RESP 16–18
[2018-08-16] MEDS: SOD CHLORIDE 0.9% 1,000 ML IV SCH ×2 (01:38→05:31)
[2018-08-16] MEDS: ACCU-CHEK XX SCH (02:00)
[2018-08-16] MEDS: PANTOPRAZOLE (EC) 40 MG TAB PO SCH (05:31)
[2018-08-16] MEDS: INSULIN ASPART [NOVOLOG] 3 ML PEN SC SCH ×4 (08:00→20:47)
[2018-08-16] MEDS: DAKINS 0.0125%(1/40) 473 ML SOLUTION TP SCH (09:00)
[2018-08-16] MEDS: CLOPIDOGREL 75 MG TAB PO SCH (09:16)
[2018-08-16] MEDS: ASCORBIC ACID 500 MG TAB PO SCH (09:16)
[2018-08-16] MEDS: MIDODRINE 5 MG TAB PO SCH ×3 (09:17→20:55)
[2018-08-16] MEDS: SEVELAMER CARBONATE 0.8 GM PKT PO SCH ×3 (09:17→18:03)
[2018-08-16] MEDS: HEPARIN 5,000 UNIT/1 ML VIAL SC SCH ×2 (09:18→20:56)
[2018-08-16] MEDS: HYDROCODONE/APAP (5/325) TAB PO PRN (09:18)
[2018-08-16] MEDS: MULTIVIT/CA CARB/B CMPLX/FA TAB PO SCH (09:20)
--- NOTE | 2018-08-16 09:26 | PN ---
Date/Time of Note Date/Time of Note DATE: 08/16/18 TIME: 09:22 Assessment/Plan Lines/Catheters IV Catheter Type (from Nrsg): Peripheral IV Mccarthy in Place (from Nrs): No Assessment/Plan Assessment/Plan s/p L 5th toe amputation and debridement for gangrene / abscess which was fairly extensive OK for d/c home or SNF from my standpoint once antibiotics are arranged - no PICC line as he has ESRD and will need UE veins for access I will schedule him for an outpatient LLE angiogram next week given the extensive foot necrosis d/w Dr Herrera Subjective 24 Hr Interval Summary No c/o. L 5th toe was amputated and foot drained yesterday. No pain. Exam/Review of Systems Vital Signs Vitals Vital Signs Date Temp Pulse Resp B/P (MAP) Pulse Ox O2 O2 Flow FiO2 Time Delivery Rate 08/16/18 98.7 98 18 144/83 93 Room Air 08:21 (103) 08/13/18 3.0 15:33 Intake and Output 08/15/18 08/15/18 08/16/18 1515:00 23:00 07:00 IntakeIntake Total 600 ml 1090 ml 950 ml BalanceBalance 600 ml 1090 ml 950 ml Exam Free Text/Dictation L foot wrapped, not undressed Results Result Diagram: 08/16/18 0642 08/16/18 0642 DAGOBERTO CLIFFORD MD Aug 16, 2018 09:26
--- NOTE | 2018-08-16 14:14 | CONS ---
Assessment/Plan Assessment/Plan Hospital Course (Demo Recall) assessment/impression - sepsis due to diabetic ulcer, infection and gangrene of L 5th toe, and bacteremia - bacteremia due to MRSA related to wound infection - diabetic ulcer, infection and gangrene of L 5th toe due to MRSA - s/p L foot excisional debridement, L foot amputation of 5th digit and application of antibiotic spacer on 08/13/2018 - OM of L 5th distal phalanx (based on XR), no OM in the visualized portions of the distal L 5th phalanx, possibly early OM of L 5th metatarsal and base of L 5th proximal phalanx, OM in the head of L 2nd metatarsal; probably residual OM of L heel, tendonitis (based on MRI) - Charcot's deformity of L foot - L shoulder pain, XR on 08/11/2018 showed DJD - h/o gangrene of b/l heel - h/o infection of the gangrenous wound and OM of L heel s/p excisional debridement of necrotic skin, subcutaneous tissue, ligament and muscle of L foot, Bx of L calcaneus on 09/30/2017. The culture of the biopsied bone did not grow bacteria while the culture of the heel wound grew nutritionally deficient streptococci. Pathology exam showed acute and chronic osteomyelitis of the biopsied bone - PVD - s/p angioplasty of LLE in 2018 - T2DM - Hgb A1c 6.2% - diabetic neuropathy of b/l feet and ankle - ESRD on HD via permacath on L chest recommendations - please order transthoracic echo to r/o endocarditis - we recommend renally dosed IV vancomycin (08/11/2018-) x 6 weeks. suggested end date: 09/22/2018 - please order weekly CBC and BMP while Pt's on IV antibiotic - contact isolation for MRSA management d/w patient, Dr. Gan Consultation Date/Type/Reason Admit Date/Time Aug 10, 2018 at 23:19 Initial Consult Date 08/11/18 Type of Consult ID Requesting Provider: CIARA PINEDA MD Date/Time of Note DATE: 08/16/18 TIME: 14:10 24 HR Interval Summary Constitutional: no complaints Detailed Summary Eyes: no complaints ENT: no complaints Respiratory: no complaints Cardiovascular: no complaints Gastrointestinal: no complaints Genitourinary: other (on HD) Musculoskeletal: restricted range of motion, other (intermittent pain of LLE) Skin: No pruritis, No rash Neurologic: no complaints Exam/Review of Systems Exam Vitals Vital Signs Date Temp Pulse Resp B/P (MAP) Pulse Ox O2 O2 Flow FiO2 Time Delivery Rate 08/16/18 98.7 98 18 144/83 93 Room Air 08:21 (103) 08/13/18 3.0 15:33 Intake and Output 08/15/18 08/15/18 08/16/18 1515:00 23:00 07:00 IntakeIntake Total 600 ml 1090 ml 950 ml BalanceBalance 600 ml 1090 ml 950 ml Constitutional: alert, oriented, well developed Psych: no complaints, nl mood/affect Head: normocephalic, atraumatic Eyes: nl conjunctiva, nl lids ENMT: nl external ears & nose, nl nasal mucosa & septum, mucosa pink and moist Neck: other (not swollen) Respiratory: other (normal respiratory effort) Cardiovascular: No edema Gastrointestinal: soft; No distended Musculoskeletal: other (L foot and LLE are dressed) Extremities: No edema Neurological: other (slow to respond) Skin: nl turgor Results Result Diagram: 08/16/18 0642 08/16/18 0642 Results 24hrs Laboratory Tests Test 08/15/18 17:16 08/15/18 19:54 08/15/18 20:30 08/16/18 06:42 Bedside Glucose 128 115 Erythrocyte 117 H Sedimentation Rate C-Reactive Protein 24.1 H White Blood Count 19.8 H Red Blood Count 3.12 L Hemoglobin 9.8 L Hematocrit 31.9 L Mean Corpuscular 102.2 H Volume Mean Corpuscular 31.4 Hemoglobin Mean Corpuscular 30.7 L Hemoglobin Concent Red Cell 16.5 H Distribution Width Platelet Count 409 Mean Platelet Volume 8.9 Immature 3.000 H Granulocytes % Neutrophils % 82.1 H Lymphocytes % 7.3 L Monocytes % 5.3 Eosinophils % 1.8 Basophils % 0.5 Nucleated Red Blood 0.0 Cells % Immature 0.600 H Granulocytes # Neutrophils # 16.2 H Lymphocytes # 1.5 Monocytes # 1.1 H Eosinophils # 0.4 Basophils # 0.1 Nucleated Red Blood 0.0 Cells # Sodium Level 133 L Potassium Level 4.6 Chloride Level 99 Carbon Dioxide Level 21 Anion Gap 13 Blood Urea Nitrogen 55 H Creatinine 7.84 H Est Glomerular 7 L Filtrat Rate mL/min Glucose Level 89 Calcium Level 7.8 L Test 08/16/18 08:20 08/16/18 12:23 Bedside Glucose 92 150 Medications Medication Current Medications Sodium Chloride 1,000 ml @ 100 mls/hr Q10H IV Last administered on 08/16/18 05:31; Admin Dose 100 MLS/HR; Start 08/11/18 at 01:38 IV Flush (NS 3 ml) 3 ml PER PROTOCOL IV ; Start 08/11/18 at 02:00 Ondansetron HCl (Zofran Inj) 4 mg Q6H PRN IV NAUSEA/VOMITING; Start 08/11/18 at 02:00 Acetaminophen (Tylenol Tab) 650 mg Q6H PRN PO .PAIN 1-3 OR TEMP Last administered on 08/13/18 19:11; Admin Dose 650 MG; Start 08/11/18 at 02:00 Acetaminophen/ Hydrocodone Bitart ([place] (5/325)) 1 tab Q6H PRN PO .PAIN 4-6 Last administered on 08/15/18 11:31; Admin Dose 1 TAB; Start 08/11/18 at 02:00 Acetaminophen/ Hydrocodone Bitart ([place] (5/325)) 2 tab Q6H PRN PO .PAIN 7-10 Last administered on 08/16/18 09:18; Admin Dose 2 TAB; Start 08/11/18 at 02:00 Heparin Sodium (Porcine) (Heparin (5000 Units/1ml)) 5,000 unit Q12 SC Last administered on 08/16/18 09:18; Admin Dose 5,000 UNIT; Start 08/11/18 at 09:00 Albuterol/ Ipratropium (Duoneb) 3 ml Q2H RESP THERAPY PRN HHN SHORTNESS OF BREATH; Start 08/11/18 at 02:00 Ascorbic Acid (Vitamin C) 500 mg DAILY PO Last administered on 08/16/18 09:16; Admin Dose 500 MG; Start 08/11/18 at 09:00 Clopidogrel Bisulfate (plaVIX) 75 mg DAILY PO Last administered on 08/16/18 09:16; Admin Dose 75 MG; Start 08/11/18 at 09:00 Multivit/Ca Carb/ B Cmplx/FA/Prenat (Yeny-Odalis) 1 tab DAILY PO Last administered on 08/16/18at 09:20; Admin Dose 1 TAB; Start 08/11/18 at 09:00 Pantoprazole (Protonix Tab) 40 mg DAILY@06 PO Last administered on 08/16/18at 05:31; Admin Dose 40 MG; Start 08/11/18 at 06:00 Sevelamer Carbonate (Renvela) 0.8 gm WITH MEALS PO Last administered on 08/16/18at 12:24; Admin Dose 0.8 GM; Start 08/11/18 at 08:00 Vancomycin HCl (Vanco Iv Per Pharmacy) VANCOMYCIN PER PHARMACY PER PROTOCOL XX ; Start 08/11/18 at 02:00 Heparin Sodium (Porcine) (Heparin (1000 Units/ml)) 4,200 unit AFTER DIALYSIS CATHETER ; Start 08/11/18 at 16:30 Diagnostic Test (Pha) (Accu-Chek) 1 ea 02 XX Last administered on 08/13/18at 02:18; Admin Dose 1 EA; Start 08/12/18 at 02:00 Insulin Aspart (Novolog Insulin Pen) NOVOLOG *MILD* ALGORITHM WITH MEALS BEDTIME SC Last administered on 08/16/18at 12:28; Admin Dose 1 UNIT; Start 08/11/18 at 18:05 Miscellaneous Information 1 ea NOTE XX ; Start 08/11/18 at 17:30 Glucose (Glutose) 15 gm Q15M PRN PO DECREASED GLUCOSE; Start 08/11/18 at 17:30 Glucose (Glutose) 22.5 gm Q15M PRN PO DECREASED GLUCOSE; Start 08/11/18 at 17:30 Dextrose (D50w Syringe) 25 ml Q15M PRN IV DECREASED GLUCOSE; Start 08/11/18 at 17:30 Dextrose (D50w Syringe) 50 ml Q15M PRN IV DECREASED GLUCOSE; Start 08/11/18 at 17:30 Glucagon (Glucagen) 1 mg Q15M PRN IM DECREASED GLUCOSE; Start 08/11/18 at 17:30 Glucose (Glutose) 15 gm Q15M PRN BUCCAL DECREASED GLUCOSE; Start 08/11/18 at 17:30 Midodrine (Proamatine) 5 mg TID PO Last administered on 08/16/18at 09:17; Admin Dose 5 MG; Start 08/12/18 at 13:00 Epoetin Yonas-epbx (RETACRIT(esrd)) 10,000 unit MoWeFr@1700 SC Last administered on 08/15/18at 17:23; Admin Dose 10,000 UNIT; Start 08/12/18 at 17:00 Sodium Hypochlorite (Dakins Diluted ()) 1 applic DAILY TP ; Start 08/13/18 at 09:00 Miscellaneous Information (*Rx Drug Level Order Reminder*) RANDOM VANCO LEVEL ... 0500 ONCE XX ; Start 08/17/18 at 05:00; Stop 08/17/18 at 05:01 JUAN J LIU M.D. Aug 16, 2018 14:14
--- NOTE | 2018-08-16 16:03 | DS ---
DATE OF ADMISSION: 08/10/2018 DATE OF DISCHARGE: 08/16/2018 FINAL DIAGNOSES: A 63-year-old male with diabetes, end-stage renal disease on hemodialysis who had p resented with worsening fifth toe gangrene with heel ulceration causes of sepsis managed as follows: 1. Severe sepsis with gram-positive bacteremia secondary to foot ulcer. 2. Continuous left foot diabetic ulcer with osteomyelitis. 3. Left foot Charcot. 4. Diabetes type 2 with peripheral neuropathy. 5. End-stage renal disease on hemodialysis. 6. Peripheral arterial disease. 7. Essential hypertension with borderline hypotensive. 8. Methicillin-resistant Staphylococcus aureus bacteremia. CONSULTS ON THE CASE: Infectious disease, ortho consult, nephrology as well as vascular surgery. INTERVENTIONS: The patient did undergo left foot excisional debridement, left foot amputation of 5th digit and application of antibiotics based. SHORT HOSPITALIZATION COURSE: Full details are available in chart for review. SUMMARY: This 63-year-old male with comorbidities as summarized above who presented in sepsis, was f ound to have osteomyelitis. He underwent debridement and excision of toe and at this time based cult ures is being discharged home to complete antibiotic therapy based on ID recommendations. DISCHARGE CONDITION: Stable. ACTIVITY: As tolerated. DIET: Recommended diet is 1800 calorie diet. DISCHARGE MEDICATIONS: For a complete list of discharge medications, please review the patient's [facility] rt. FOLLOWUP: The patient is recommended to follow up with infectious diseases in the next 1 to 2 weeks. The patient will also follow up with podiatry as well in next 1 to 2 weeks. The patient will need weekly CBC and BMP that will be monitored by Infectious Disease. The patient is also going to have [facility] therapy for wound care and dressing on the continued management. Overall time spent on discharge evaluation today has been about half an hour. Dictated By: NILSON DEXTER MD BA/NTS Conf#: [id number] DID#: [id number] CC: NILSON DEXTER MD;*EndCC*
--- NOTE | 2018-08-16 20:06 | CONS ---
Assessment/Plan Assessment/Plan Hospital Course (Demo Recall) 1. End-stage renal disease on maintenance hemodialysis. He usually dialyzes Wednesday, Wednesday, Wednesday . He had dialysis today and just finished the treatment. He is going to be discharged to home today. I told him and his daughters that he will need to go to dialysis on Wednesday in the [facility] unit. 2. 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 3. Severe peripheral artery disease. 4. Anemia of chronic kidney disease. I have ordered iron studies and will start Epogen. 5. Type 2 diabetes mellitus. 6. Postural hypotension . He is on midodrine , his blood pressure is acceptable now. I would not treat him with antihypertensive medication. I had a long discussion with his 2 daughters, who are nurses, about his postural hypotension. I told them that he is on midodrine and that I would not treat him for hypertension because of the risk of him getting dizzy when he stands up. They tell me that he is not very ambulatory. I think this needs to be considered in any future treatments and especially with regard to vascular bypass. I told them that he does need a AV fistula because of the age of his current permacath and the risk of infection. They understand. Consultation Date/Type/Reason Admit Date/Time Aug 10, 2018 at 23:19 Initial Consult Date 08/11/18 Type of Consult Nephrology Requesting Provider: CIARA PINEDA MD Date/Time of Note DATE: 08/16/18 TIME: 20:00 24 HR Interval Summary Free Text/Dictation Dilshad is just finishing a hemodialysis treatment. 2 L of fluid was removed. He is going to be discharged to home today. Constitutional: no complaints Exam/Review of Systems Exam Vitals Vital Signs Date Temp Pulse Resp B/P (MAP) Pulse Ox O2 O2 Flow FiO2 Time Delivery Rate 08/16/18 89 19:10 08/16/18 18 130/82 95 Room Air 16:25 (98) 08/16/18 98.7 15:25 08/13/18 3.0 15:33 Intake and Output 08/15/18 08/15/18 08/16/18 1414:59 22:59 06:59 IntakeIntake Total 600 ml 1090 ml 950 ml BalanceBalance 600 ml 1090 ml 950 ml Exam Left leg is in a large splint bandage. The right lower leg has some stasis changes. Constitutional: alert, oriented, frail Respiratory: clear to auscultation, normal air movement Cardiovascular: regular rate and rhythm Gastrointestinal: soft, non-tender Results Result Diagram: 08/16/18 0642 08/16/18 0642 Results 24hrs Laboratory Tests Test 08/15/18 20:30 08/16/18 06:42 08/16/18 08:20 08/16/18 12:23 Bedside Glucose 115 92 150 White Blood Count 19.8 H Red Blood Count 3.12 L Hemoglobin 9.8 L Hematocrit 31.9 L Mean Corpuscular 102.2 H Volume Mean Corpuscular 31.4 Hemoglobin Mean Corpuscular 30.7 L Hemoglobin Concent Red Cell 16.5 H Distribution Width Platelet Count 409 Mean Platelet Volume 8.9 Immature 3.000 H Granulocytes % Neutrophils % 82.1 H Lymphocytes % 7.3 L Monocytes % 5.3 Eosinophils % 1.8 Basophils % 0.5 Nucleated Red Blood 0.0 Cells % Immature 0.600 H Granulocytes # Neutrophils # 16.2 H Lymphocytes # 1.5 Monocytes # 1.1 H Eosinophils # 0.4 Basophils # 0.1 Nucleated Red Blood 0.0 Cells # Sodium Level 133 L Potassium Level 4.6 Chloride Level 99 Carbon Dioxide Level 21 Anion Gap 13 Blood Urea Nitrogen 55 H Creatinine 7.84 H Est Glomerular 7 L Filtrat Rate mL/min Glucose Level 89 Calcium Level 7.8 L Test 08/16/18 17:47 Bedside Glucose 130 Medications Medication Current Medications Sodium Chloride 1,000 ml @ 100 mls/hr Q10H IV Last administered on 08/16/18at 05:31; Admin Dose 100 MLS/HR; Start 08/11/18 at 01:38 IV Flush (NS 3 ml) 3 ml PER PROTOCOL IV ; Start 08/11/18 at 02:00 Ondansetron HCl (Zofran Inj) 4 mg Q6H PRN IV NAUSEA/VOMITING; Start 08/11/18 at 02:00 Acetaminophen (Tylenol Tab) 650 mg Q6H PRN PO .PAIN 1-3 OR TEMP Last administered on 08/13/18at 19:11; Admin Dose 650 MG; Start 08/11/18 at 02:00 Acetaminophen/ Hydrocodone Bitart (Crucible (5/325)) 1 tab Q6H PRN PO .PAIN 4-6 Last administered on 08/15/18 11:31; Admin Dose 1 TAB; Start 08/11/18 at 02:00 Acetaminophen/ Hydrocodone Bitart (Crucible (5/325)) 2 tab Q6H PRN PO .PAIN 7-10 Last administered on 08/16/18 09:18; Admin Dose 2 TAB; Start 08/11/18 at 02:00 Heparin Sodium (Porcine) (Heparin (5000 Units/1ml)) 5,000 unit Q12 SC Last administered on 08/16/18 09:18; Admin Dose 5,000 UNIT; Start 08/11/18 at 09:00 Albuterol/ Ipratropium (Duoneb) 3 ml Q2H RESP THERAPY PRN HHN SHORTNESS OF BREATH; Start 08/11/18 at 02:00 Ascorbic Acid (Vitamin C) 500 mg DAILY PO Last administered on 08/16/18 09:16; Admin Dose 500 MG; Start 08/11/18 at 09:00 Clopidogrel Bisulfate (plaVIX) 75 mg DAILY PO Last administered on 08/16/18 09:16; Admin Dose 75 MG; Start 08/11/18 at 09:00 Multivit/Ca Carb/ B Cmplx/FA/Prenat (Yeny-Odalis) 1 tab DAILY PO Last administered on 08/16/18 09:20; Admin Dose 1 TAB; Start 08/11/18 at 09:00 Pantoprazole (Protonix Tab) 40 mg DAILY@06 PO Last administered on 08/16/18 05:31; Admin Dose 40 MG; Start 08/11/18 at 06:00 Sevelamer Carbonate (Renvela) 0.8 gm WITH MEALS PO Last administered on 08/16/18 18:03; Admin Dose 0.8 GM; Start 08/11/18 at 08:00 Vancomycin HCl (Vanco Iv Per Pharmacy) VANCOMYCIN PER PHARMACY PER PROTOCOL XX ; Start 08/11/18 at 02:00 Heparin Sodium (Porcine) (Heparin (1000 Units/ml)) 4,200 unit AFTER DIALYSIS CATHETER Last administered on 08/16/18 19:35; Admin Dose 4,200 UNIT; Start 08/11/18 at 16:30 Diagnostic Test (Pha) (Accu-Chek) 1 02 XX Last administered on 08/13/18at 02:18; Admin Dose 1 EA; Start 08/12/18 at 02:00 Insulin Aspart (Novolog Insulin Pen) NOVOLOG *MILD* ALGORITHM WITH MEALS BEDTIME SC Last administered on 08/16/18at 12:28; Admin Dose 1 UNIT; Start at 18:05 Miscellaneous Information 1 ea NOTE XX ; Start 08/11/18 at 17:30 Glucose (Glutose) 15 gm Q15M PRN PO DECREASED GLUCOSE; Start 08/11/18 at 17:30 Glucose (Glutose) 22.5 gm Q15M PRN PO DECREASED GLUCOSE; Start 08/11/18 at 17:30 Dextrose (D50w Syringe) 25 ml Q15M PRN IV DECREASED GLUCOSE; Start 08/11/18 at 17:30 Dextrose (D50w Syringe) 50 ml Q15M PRN IV DECREASED GLUCOSE; Start 08/11/18 at 17:30 Glucagon (Glucagen) 1 mg Q15M PRN IM DECREASED GLUCOSE; Start 08/11/18 at 17:30 Glucose (Glutose) 15 gm Q15M PRN BUCCAL DECREASED GLUCOSE; Start 08/11/18 at 17:30 Midodrine (Proamatine) 5 mg TID PO Last administered on 08/16/18at 09:17; Admin Dose 5 MG; Start 08/12/18 at 13:00 Epoetin Yonas-epbx (RETACRIT(esrd)) 10,000 unit MoWeFr@1700 SC Last administered on 08/15/18at 17:23; Admin Dose 10,000 UNIT; Start 08/12/18 at 17:00 Sodium Hypochlorite (Dakins Diluted (40)) 1 applic DAILY TP ; Start 08/13/18 at 09:00 Miscellaneous Information (*Rx Drug Level Order Reminder*) RANDOM VANCO LEVEL ... 0500 ONCE XX ; Start 08/17/18 at 05:00; Stop 08/17/18 at 05:01 MARY THRASHER MD Aug 16, 2018 20:06
== END 2018-08-16 21:17 | disposition home health service (06) | DRG 853 ==
LOC: E/R 17:59 → PP2 23:19 → EDBEDREQSVC 08-11 07:29
PROVIDERS: ADMIT Internal Medicine; ATTEND Family Medicine
PROC: 5A1D70Z Performance of Urinary Filtration, Intermittent, Less than 6 Hours Per Day (ICD-10-PCS; 2018-08-11)
PROC: 0KBW0ZZ Excision of Left Foot Muscle, Open Approach (ICD-10-PCS; 2018-08-13)
PROC: 0LBW0ZZ Excision of Left Foot Tendon, Open Approach (ICD-10-PCS; 2018-08-13)
PROC: 0JBR0ZZ Excision of Left Foot Subcutaneous Tissue and Fascia, Open Approach (ICD-10-PCS; 2018-08-13)
PROC: 0YHN0YZ Insertion of Other Device into Left Foot, Open Approach (ICD-10-PCS; 2018-08-13)
PROC: 0Y6Y0Z0 Detachment at Left 5th Toe, Complete, Open Approach (ICD-10-PCS; principal; 2018-08-13 12:30)
DX: A41.02 Sepsis due to Methicillin resistant Staphylococcus aureus (principal); N18.6 End stage renal disease; E11.52 Type 2 diabetes mellitus with diabetic peripheral angiopathy with gangrene; I12.0 Hypertensive chronic kidney disease with stage 5 chronic kidney disease or end stage renal disease; E87.1 Hypo-osmolality and hyponatremia; L97.429 Non-pressure chronic ulcer of left heel and midfoot with unspecified severity; M86.272 Subacute osteomyelitis, left ankle and foot; R65.20 Severe sepsis without septic shock; E11.22 Type 2 diabetes mellitus with diabetic chronic kidney disease; E11.40 Type 2 diabetes mellitus with diabetic neuropathy, unspecified; E11.621 Type 2 diabetes mellitus with foot ulcer; D63.1 Anemia in chronic kidney disease; L97.529 Non-pressure chronic ulcer of other part of left foot with unspecified severity; E11.610 Type 2 diabetes mellitus with diabetic neuropathic arthropathy; E11.42 Type 2 diabetes mellitus with diabetic polyneuropathy; I95.1 Orthostatic hypotension; Z99.2 Dependence on renal dialysis
CPT/HCPCS: 36415; 71045; 73030; 73718; 73721; 80048; 80053; 80061; 80202; 82728; 82962; 83036; 83540; 83605; 83690; 83735; 84100; 84145; 84484; 85025; 85610; 85651; 85730; 86140; 87070; 87340; 88305; 88311; 90935; 93005; 93922; 96365; 96366; 96375; 97162; C1713; J0690; J1170; J1644; J1815; J2250; J2405; J2543; J2997; J3010; J3370; J7030; Q5105